=== PATIENT | female | born 1970 | race Caucasian/White ===

== ENCOUNTER → 2016-07-19 | Outpatient (REF) | payer MEDICARE, OTHER ==
[~2016-07-19] MED LIST: /CELE20CA PO; /DULO30CA OR; /ZOLP6ER; AMBI10TA OR; AMBI5TAB OR; BUTR5DIS2 TD; CALCCHW12 OR; CELE40TA; CETI5CHW OR; COLA100C2 OR; CVS20TAB PO; FIBERCHOICE OR; FLECTOR PATCH; FLON0.05; GABA600T3 OR; LYRI75CA PO; MIRALEX; MIRALEX OR; MOTR200T4 OR; OXYC15TA11 PO; PERICOLACE OR; PRAV40TA OR; RYZOLT OR; RYZOLT PO; SAVELLA OR; SOMA350T OR; THERGRAN OR; TRAM50TA2 OR; TYLE500T53 OR; ULTR300T; ULTRTA OR; tylenol OR
[2016-07-19 12:08] LABS: ALBUMIN 3.9 GM/DL (3.2-5.2); ALBUMIN/GLOBULIN RATIO 1.39 (1.00-1.93); ALKALINE PHOSPHATASE 44 U/L (45-117); ALT/SGPT 26 U/L (12-78); ANION GAP 7 MEQ/L (8-16); AST/SGOT 14 U/L (15-37); BILIRUBIN,TOTAL 0.2 MG/DL (0.2-1.0); BLOOD UREA NITROGEN 14 MG/DL (7-18); CALCIUM LEVEL 9.3 MG/DL (8.5-10.1); CARBON DIOXIDE LEVEL 30 MEQ/L (21-32); CHLORIDE LEVEL 106 MEQ/L (98-107); CHOLESTEROL LEVEL 195 MG/DL (<200); CREATININE FOR GFR 0.66 MG/DL (0.55-1.02); FREE T4 0.77 NG/DL (0.76-1.46); GLOMERULAR FILTRATION RATE > 60.0 (>58); GLUCOSE, FASTING 94 MG/DL (70-105); MAGNESIUM LEVEL 2.1 MG/DL (1.8-2.4); POTASSIUM SERUM 3.9 MEQ/L (3.5-5.1); SODIUM LEVEL 143 MEQ/L (136-145); TOTAL PROTEIN 6.7 GM/DL (6.4-8.2); TRIGLYCERIDES LEVEL 124 MG/DL (<150)
== END ==
LOC: M SFHCPLAZ 08:49
PROVIDERS: ATTEND Nurse Practitioner Family
DX: E78.2 Mixed hyperlipidemia (principal); K21.9 Gastro-esophageal reflux disease without esophagitis

== ENCOUNTER → 2016-07-20 | Outpatient (CLI) | payer OTHER, MEDICARE ==
--- NOTE | 2016-08-06 01:16 | ECWPNPC ---
PATIENT NAME: SAFIA GARCIA : 1970 GENDER: FEMALE VISIT DATE: 07/20/2016 DISCHARGE DATE: 07/20/16 1114 VISIT LOCKED DATE TIME: PHYSICIAN: DEVI ADAMS RESOURCE: DEVI ADAMS REASON FOR APPOINTMENT 1. W/C BACK HISTORY OF PRESENT ILLNESS HISTORY OF PRESENT ILLNESS: PAIN THE PATIENT DESCRIBES THE PAIN... THE PATIENT DESCRIBES THE PAIN... THE PATIENT DESCRIBES THE PAIN... HERE FOR F/U OF CHRONIC LBP AND BILAT. LEG PAIN .THIS IS CHRONIC PAIN RELATED TO WORK RELATED INJURY DOI 2001.HX OF 2 LUMBAR SURGERIES 2001 AND 2002.CURRENT MEDICATIONS FOR WORK RELATED INJURY:SOMA 350MG TID WHICH SHE IS USING PRN,TRAMADOL 50MG 2 TAB PRN MDD4,OXYCONTIN 20MG BID,[id number] BID,NEURONTIN 600MG TID AND AMBIEN 10MG PRN .FINDS CURRENT REGIMEN SOMEWHAT EFFECTIVE BUT FEELS TRAMADOL DOES NOT HELP AT ALL. CONSTIPATION HAS BEEN CONTROLLED WITH PRN COLACE 100MG 1-2 TAB AND SENEKOT 1 DAILY.RATING PAIN VAS 6/10.DISCUSSED MEDICATION OPTIONS TO INCLUDE OPIOD ROTATION AND CONSIDERING DCS AGAIN. SHE WAS UNABLE TO GO THROUGH WITH DCS TRIAL 1 YR AGO SHE IS AND WAS UNDER ALOT OF STRESS. FALL RISK SCREENING: SCREENING :NO FALLS IN THE PAST YEAR CURRENT MEDICATIONS TAKING MAGNESIUM OXIDE 500 MG TABLET 1 TABLET WITH MEAL ORALLY DAILY TAKING MIRENA 20 MCG/24HR INTRAUTERINE DEVICE 1 DEVICE WTW INTRAUTERINE PLACED 12/2013, NOTES: WTW TAKING VITAMIN C 500 MG TABLET CHEWABLE 1 TAB ORALLY ONCE A DAY TAKING MULTI-VITAMIN 1 TABLET 1 TAB ORALLY ONCE A DAY TAKING FISH OIL 1000 MG CAPSULE 1 CAP ORALLY TWICE A DAY TAKING VALACYCLOVIR HCL 500 MG TABLET 2 TABLETS ORALLY EVERY 24 HRS NEEDED TAKING SALINE NASAL SPRAY 0.65 % SOLUTION 2 SPRAYS IN EACH NOSTRIL NEEDED NASALLY EVERY 4 HRS NEEDED TAKING OMEPRAZOLE 20 MG CAPSULE DELAYED RELEASE 1 CAPSULE ORALLY TWICE A DAY TAKING VITAMIN D-3 1000 UNIT CAPSULE 2 CAPS WITH FOOD ORALLY ONCE A DAY TAKING CALCIUM 600 + D 600-400 MG-UNIT TABLET 1 TABLET ORALLY ONCE A DAY TAKING DRISDOL 50,000 UNITS TABLET 1 TAB WITH MEAL ORAL EVERY 2 WEEKS TAKING PRAVASTATIN SODIUM 40 MG TABLET 1 TABLET ORALLY ONCE A DAY TAKING AMBIEN 10 MG TABLET 1 TABLET AT BEDTIME NEEDED ORALLY ONCE A DAY MDD1 TAKING GABAPENTIN 600 MG TABLET 1 TABLET ORALLY THREE TIMES A DAY TAKING CYMBALTA 60 MG CAPSULE DELAYED RELEASE PARTICLES 1 CAP PAIN CLINIC ORALLY TWICE A DAY, NOTES: PAIN CLINIC TAKING FLONASE 50 MCG/ACT SUSPENSION 1 PUFF IN EACH NOSTRIL NASALLY ONCE A DAY NEEDED TAKING SOMA 350 MG TABLET 1 TAB ORALLY Q8H TID MDD3, NOTES: PAIN CLINIC TAKING NORCO 7.5-325 MG TABLET 1 ORALLY EVERY 6 HRS PRN PAIN MDD4 TAKING OXYCODONE HCL ER 20 MG TABLET ER 12 HOUR ABUSE-DETERRENT 1 TABLET ORALLY EVERY 12 HRS MDD2 NOT-TAKING CUSTOM DO NOT USE TRAMADOL 50 MG TABLET ONE TAB PAIN CLINIC ORALLY EVERY 4-6 HOURS PRN PAIN, NOTES: PAIN CLINIC NOT-TAKING COLACE 100 MG CAPSULE 2 CAP(S) ORALLY ONCE A DAY NOT-TAKING FIBERCHOICE 2 GM TABLET CHEWABLE 1 TAB(S) ORALLY ONCE A DAY NOT-TAKING ZYRTEC ALLERGY 10 MG TABLET 1 TABLET ORALLY ONCE A DAY NOT-TAKING ZOLPIDEM TARTRATE 10 MG TABLET 1 TABLET AT BEDTIME NEEDED ORALLY DAILY AT BEDTIME NOT-TAKING OXYCODONE HCL ER 20 MG TABLET ER 12 HOUR ABUSE-DETERRENT 1 TABLET ORALLY EVERY 12 HRSMDD2 NOT-TAKING OXYCODONE HCL ER 20 MG TABLET ER 12 HOUR ABUSE-DETERRENT 1 TABLET ORALLY Q12H BID MDD2 NOT-TAKING AMBIEN 10MG TABLET 1/2-1 TAB PAIN CLINIC P.O. AT BED TIME NEEDED, NOTES: PAIN CLINIC NOT-TAKING MOVANTIK 12.5 MG TABLET 1 TABLET IN THE MORNING ORALLY ONCE A DAY NOT-TAKING OXYCONTIN 20 MG TABLET EXTENDED RELEASE 12 HOUR 1 ORALLY 1Q12H BID MDD2, NOTES: PAIN CLINIC NOT-TAKING GABAPENTIN 600 600 MG CAPSULE 1 CAPSULE ORAL Q 8 HRS, NOTES: PAIN CLINIC NOT-TAKING HYDROCHLOROTHIAZIDE 12.5 12.5MG TABLET 1 TAB(S) ORAL HOLD MEDICATION LIST REVIEWED AND RECONCILED WITH THE PATIENT PAST MEDICAL HISTORY DEPRESSION REFLUX SEASONAL AND ENVIRONMENTAL ALLERGIES HYPERLIPIDEMIA REMOTE HX DYSPLASIA CHRONIC BACK AND NECK PROBLEMS EDEMA ALLERGIES FLEXERIL: HIVES: ALLERGY CELEBREX: RASH: ALLERGY LYRICA: RASH,FACE SWELLING: ALLERGY SOCIAL HISTORY GENERAL: TOBACCO USE ARE YOU A:NONSMOKER LEARNING BARRIERS / SPECIAL NEEDS ORIENTED TO PLAN OF CARE: PATIENT, PAIN MANAGEMENT PATIENT, ORIENTED TO PLAN OF CARE: PATIENT, PAIN MANAGEMENT PATIENT. NEW PATIENT PAIN DIARY TODAY'S VISITNOTES FROM 0-10, WHAT LEVEL IS YOUR PAIN TODAY?0 PAIN CLINIC PFS, CLERGY, PUBLIC HEALTH REFERRALS PFS REFERRAL NEEDED?NO CLERGY REFERRAL NEEDED?NO PUBLIC HEALTH REFERRAL NEEDED?NO WAS THE PROVIDER NOTIFIED OF ANY PERTINENT INFO?NO PFS REFERRAL NEEDED?NO CLERGY REFERRAL NEEDED?NO PUBLIC HEALTH REFERRAL NEEDED?NO WAS THE PROVIDER NOTIFIED OF ANY PERTINENT INFO?NO REVIEW OF SYSTEMS CONSTITUTIONAL: ANY CHANGE IN YOUR MEDICAL CONDITION? NO . CHILLS NO . FEVER NO . INFECTION: DO YOU HAVE NEW INFECTIONS? NO . DO YOU HAVE HISTORY OF MRSA? NO . MUSCULOSKELETAL: ANY NEW PATTERNS OF PAIN OR NUMBNESS? NO . GASTROENTEROLOGY: ANY NEW CHANGE IN BOWEL CONTROL? NO . GENITOURINARY: ANY NEW CHANGE IN BLADDER CONTROL? NO . IS THERE A CHANCE YOU COULD BE ? NO . HEMATOLOGY/LYMPH: DO YOU TAKE ANY BLOOD THINNERS? (FOR EXAMPLE- COUMADIN, PLAVIX, AGGRENOX, PLATEL, PRADAXA, OR XARELTO) NO . WHEN WAS YOUR LAST DOSE? DATE: TIME: . NEUROLOGY: HAVE YOU FALLEN IN THE PAST 6 MONTHS? NO . ANY NEW EXTREMITY NUMBNESS OR WEAKNESS? NO . CARDIOLOGY: DO YOU HAVE A PACEMAKER OR DEFIBRILLATOR? NO . RESPIRATORY: HAVE YOU BEEN SICK IN THE PAST WEEK? NO . FEVER NO . FLU LIKE SYMPTOMS? NO . COUGH NO . INTEGUMENTARY: DO YOU HAVE ANY RASHES OR OPEN SORES? NO . ALLERGIC/IMMUNO: ARE YOU ALLERGIC TO SHELLFISH OR IV DYE? NO . ANY NEW ALLERGIES? NO . PSYCHIATRIC: DO YOU HAVE THOUGHTS OF HURTING YOURSELF OR SOMEONE ELSE? NO . ARE YOU ABUSED, NEGLECTED, OR IN AN UNSAFE ENVIRONMENT? NO . ENDOCRINOLOGY: ARE YOU DIABETIC? NO . OTHER: DO YOU NEED ANY PRESCRIPTIONS? YES . IF YES, PLEASE LIST: SOMA . ANY NEW PROBLEMS WITH YOUR MEDICATIONS? NO . WHEN DID YOU LAST EAT? ____ . WHEN DID YOU LAST DRINK? ____ . WHAT DID YOU LAST DRINK? ____ . NAME OF PERSON DRIVING YOU HOME? ____ . DO YOU HAVE ANY OTHER QUESTIONS OR CONCERNS NO . REVIEWED BY: PROVIDER: DEVI REYNOLDS . VITAL SIGNS WT 190 LBS, HT 64.5 IN, BMI 32.11 INDEX, BP 127/69 MM HG, HR 75 /MIN, RR 16 /MIN, TEMP 97.7 F, OXYGEN SAT % 97, NA INITIALS TL 1044, REVIEWED BY: AM. EXAMINATION GENERAL EXAMINATION: LUNGS:LUNG SOUNDS ARE CLEAR. HEART:HEART RATE REGULAR. MUSCULOSKELETAL:*, MUSCLE STRENGTH TESTING 5/5 BILATERAL, PALPATION: POSITIVE FOR PAIN OVER L/S SPINE. POSITIVE FOR PAIN OVER L/S PARSPINALS. ASSESSMENTS POST LAMINECTOMY SYNDROME - M96.1 (PRIMARY) CHRONIC PRESCRIPTION OPIATE USE - Z79.891 TREATMENT POST LAMINECTOMY SYNDROME CONTINUE AMBIEN TABLET, 10 MG, 1 TABLET AT BEDTIME NEEDED, ORALLY, ONCE A DAY MDD1, 30 DAY(S), 15, REFILLS 1 CONTINUE GABAPENTIN TABLET, 600 MG, 1 TABLET, ORALLY, THREE TIMES A DAY, 30 DAY(S), 90 TABLET, REFILLS 5 CONTINUE CYMBALTA CAPSULE DELAYED RELEASE PARTICLES, 60 MG, 1 CAP PAIN CLINIC, ORALLY, TWICE A DAY, 30 DAY(S), 60 CAPSULE, REFILLS 5, NOTES: PAIN CLINIC REFILL SOMA TABLET, 350 MG, 1 TAB, ORALLY, Q8H TID MDD3, 30 DAY(S), 30, REFILLS 0, NOTES: PAIN CLINIC REFILL NORCO TABLET, 7.5-325 MG, 1, ORALLY, EVERY 6 HRS PRN PAIN MDD4, 30 DAY(S), 120, REFILLS 0 REFILL OXYCODONE HCL ER TABLET ER 12 HOUR ABUSE-DETERRENT, 20 MG, 1 TABLET, ORALLY, EVERY 12 HRS MDD2, 30 DAY(S), 60, REFILLS 0 NOTES: ISTOP REGISTRY REVIEWED AND DEMNOSTRATES COMPLLIANCE. BRINGS IN MEDICATIONS WHICH IS APPROPRIATE FOR WHAT WAS DISPENSED. RECENT URINE TOXICOLOGY REVIEWED. NO UNAUTHORIZED MEDICATIONS. NO ILLICIT SUBSTANCES AND PRESCRIBED MEDICATIONS WERE PRESENT. , RISKS AND BENEFITS OF NARCOTIC/OPIOD MEDICATIONS WERE REVIEWED WITH PATIENT - THIS INCLUDES BUT IS NOT LIMITED TO RISK OF DEPENDANCE/DEVELOPMENT OF ADDICTION, MOOD DISTURBANCE AND DEPRESSION, OSTEOPOROSIS, HORMONAL AND LABIDAL CHANGES, RESPIRATORY DEPRESSION AND . PATIENT IS ADVISED NOT TO DRIVE WHILE ON THESE MEDICATIONS. PROCEDURES PN WORKMANS' COMP OPINION IN YOUR OPINION, WAS THE INCIDENT THAT THE PATIENT DESCRIBED THE COMPETENT MEDICAL CAUSE OF THIS INJURY/ILLNESS? YES ARE THE PATIENT'S COMPLAINTS CONSISTENT WITH HIS/HER HISTORY OF THE INJURY/ILLNESS? YES IS THE PATIENT'S HISTORY OF THE INJURY/ILLNESS CONSISTENT WITH YOUR OBJECTIVE FINDING? YES WHAT IS THE PERCENTAGE OF TEMPORARY IMPAIRMENT? MODERATE TO MARKED = 66.7% IS THE PATIENT WORKING? NO DOCTOR ON SITE: LAVERN LACY MD FOLLOW UP [address] WHALEY ELECTRONICALLY SIGNED BY GAIL ADAMS ON 08/05/2016 AT 04:42 PM EST DISCLAIMER : THIS IS A VISIT SUMMARY EXTRACTED FROM THE [employer] CHART. IT IS NOT A COPY OF THE [employer] PROGRESS NOTE. SANJIV
== END ==
LOC: M PAIN 10:20
PROVIDERS: ATTEND Nurse Practitioner Family
DX: Z09 Encounter for follow-up examination after completed treatment for conditions other than malignant neoplasm (principal); G89.29 Other chronic pain; M96.1 Postlaminectomy syndrome, not elsewhere classified; K21.9 Gastro-esophageal reflux disease without esophagitis; J30.1 Allergic rhinitis due to pollen; J30.2 Other seasonal allergic rhinitis; E78.5 Hyperlipidemia, unspecified; F32.9 Major depressive disorder, single episode, unspecified; Z88.8 Allergy status to other drugs, medicaments and biological substances; Z79.891 Long term (current) use of opiate analgesic; Z79.899 Other long term (current) drug therapy

== ENCOUNTER → 2016-08-02 | Outpatient (REF) | payer MEDICARE ==
[2016-08-02 17:01] LABS: VITAMIN B12 LEVEL 630 PG/ML
[2016-08-02 17:02] LABS: FOLATE > 24.0 NG/ML
[2016-08-02 18:19] LABS: MEAN CORPUSCULAR HGB CONC 32.2 g/dl (32.0-36.5); RED CELL DISTRIBUTION WIDTH 13.2 % (11.5-14.5); WHITE BLOOD COUNT 7.2 K/mm3 (4.0-10.0)
== END ==
LOC: M SFHCPLAZ 14:41
PROVIDERS: ATTEND Social Worker Clinical
DX: R53.83 Other fatigue (principal); E55.9 Vitamin D deficiency, unspecified

== ENCOUNTER → 2016-09-07 | Outpatient (REF) | payer MEDICARE | LOC: M SFHCWAGY 14:27 | PROVIDERS: ATTEND Nurse Practitioner Women's Health | DX: Z12.31 Encounter for screening mammogram for malignant neoplasm of breast (principal); Z12.4 Encounter for screening for malignant neoplasm of cervix; R87.622 Low grade squamous intraepithelial lesion on cytologic smear of vagina (LGSIL) | CPT/HCPCS: G0123; G0202; G0463 ==

== ENCOUNTER → 2016-09-07 | Outpatient (CLI) | payer MEDICARE ==
--- NOTE | 2016-09-07 15:14 | REPMRS ---
Patient History The patient states she had a clinical breast exam in 08/2016. Family history of breast cancer in maternal aunt under age 50 and colorectal cancer in paternal grandmother. Reductions of both breasts, 2004. Taking hormonal contraceptives for 9 years. Digital Woman Screen Mammo: September 07, 2016 - Exam #: [id number] Bilateral CC and MLO view(s) were taken. Technologist: Marissa Hilliard, Technologist Prior study comparison: January 21, 2014, digital woman screen mammo performed at [facility]. March 02, 2011, bilateral bilat screen digital mammo performed at [facility]. FINDINGS: There are scattered fibroglandular densities. There has been no change in the appearance of the mammogram from the prior studies. There is a mild amount of residual fibroglandular tissue which is fairly symmetric. There is no interval development of dominant mass, architectural distortion, or clustered microcalcification suggestive of malignancy. ASSESSMENT: BI-RADS/ACR category 1 mammogram. Negative. Recommendation Routine screening mammogram in 1 year (for women over age 40). This mammogram was interpreted with the aid of an FDA-approved computer-aided dectection system. Electronically Signed By: Antonino Ingram MD 09/07/16 0449
== END ==
LOC: M WHC 14:06
PROVIDERS: ATTEND Nurse Practitioner Women's Health
DX: Z12.31 Encounter for screening mammogram for malignant neoplasm of breast (principal); Z98.890 Other specified postprocedural states

== ENCOUNTER → 2016-10-03 | Outpatient (REF) | payer MEDICARE | LOC: M SFHCWAGY 15:21 | PROVIDERS: ATTEND Nurse Practitioner Women's Health | DX: N87.0 Mild cervical dysplasia (principal) ==

== ENCOUNTER → 2016-10-04 | Outpatient (CLI) | payer MEDICARE ==
--- NOTE | 2016-10-09 23:57 | ECWPNPC ---
PATIENT NAME: SAFIA GARCIA : 1970 GENDER: FEMALE VISIT DATE: 10/04/2016 DISCHARGE DATE: 10/04/16 1344 VISIT LOCKED DATE TIME: PHYSICIAN: LAVERN WHALEY RESOURCE: LAVERN WHALEY REASON FOR APPOINTMENT 1. W/C BACK HISTORY OF PRESENT ILLNESS HISTORY OF PRESENT ILLNESS: PAIN THE PATIENT DESCRIBES THE PAIN... 46 YEAR OLD FEMALE PATIENT WITH HISTORY OF CHRONIC BACK PAIN. PATIENT DESCRIBES THE PAIN SHARP, STABBING, TENDER, SHOOTING, AND HAVING IT ALL THE TIME WITH A PAIN SCORE OF 5-6/10 ON TODAY'S VISIT. 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 PATIENT HAS HAD TWO BACK SURGERIES THE LAST ONE WAS IN 2002. PATIENT HAS TRIED PT IN THE PAST WITHOUT ANY SUCCESS IN PAIN RELIEF. PATIENT REPORTS THAT SHE LAST WORKED IN 2001. PATIENT REPORTS THAT SHE HAS DIFFICULTIES FALLING ASLEEP AND STAYING AT SLEEP AT NIGHT. PATIENT REPORTS OF RADIATING PAIN DOWN BOTH LEGS FROM HER BACK, AND THE PAIN IN THE RIGHT LEG HURTS THE MOST TODAY. PATIENT DENIES UNEXPLAINABLE WEIGHT LOSS, FEVER, CHILLS, NEW CHANGES ON HER URINARY OR BOWEL CONTROL. FALL RISK SCREENING: SCREENING :NO FALLS IN THE PAST YEAR CURRENT MEDICATIONS TAKING CYMBALTA 60 MG CAPSULE DELAYED RELEASE PARTICLES 1 CAP PAIN CLINIC ORALLY TWICE A DAY TAKING MAGNESIUM OXIDE 500 MG TABLET 1 TABLET WITH MEAL ORALLY DAILY TAKING VITAMIN C 500 MG TABLET CHEWABLE 1 TAB ORALLY ONCE A DAY TAKING MULTI-VITAMIN 1 TABLET 1 TAB ORALLY ONCE A DAY TAKING FISH OIL 1000 MG CAPSULE 1 CAP ORALLY TWICE A DAY TAKING CALCIUM 600 + D 600-400 MG-UNIT TABLET 1 TABLET ORALLY ONCE A DAY TAKING SOMA 350 MG TABLET 1 TAB ORALLY Q8H TID MDD3, NOTES: PAIN CLINIC TAKING LANSOPRAZOLE 30 MG CAPSULE DELAYED RELEASE 1 CAPSULE ORALLY ONCE A DAY TAKING PRAVASTATIN SODIUM 40 MG TABLET 1 TABLET ORALLY ONCE A DAY TAKING ZYRTEC ALLERGY 10 MG TABLET 1 TABLET ORALLY ONCE A DAY TAKING VITAMIN D-3 1000 UNIT CAPSULE 4 CAPS WITH FOOD ORALLY ONCE A DAY TAKING SALINE NASAL SPRAY 0.65 % SOLUTION 2 SPRAYS IN EACH NOSTRIL NEEDED NASALLY EVERY 4 HRS NEEDED TAKING OXYCODONE HCL ER 20 MG TABLET ER 12 HOUR ABUSE-DETERRENT 1 TABLET ORALLY EVERY 12 HRS MDD2 TAKING NORCO 7.5-325 MG TABLET 1 ORALLY EVERY 6 HRS PRN PAIN MDD4 TAKING MIRENA 20 MCG/24HR INTRAUTERINE DEVICE 1 DEVICE WTW INTRAUTERINE PLACED 12/2013, NOTES: WTW TAKING NYSTATIN [id number] UNIT/GM CREAM 1 APPLICATION TO AFFECTED AREA EXTERNALLY TO GENITALIA TWICE A DAY TAKING GABAPENTIN 600 MG TABLET 1 TABLET ORALLY THREE TIMES A DAY TAKING FLONASE 50 MCG/ACT SUSPENSION 1 PUFF IN EACH NOSTRIL NASALLY ONCE A DAY NEEDED TAKING VALACYCLOVIR HCL 1 GM TABLET 1 TAB ORALLY EVERY 24 HRS NEEDED NOT-TAKING COLACE 100 MG CAPSULE 2 CAP(S) ORALLY ONCE A DAY NOT-TAKING FIBERCHOICE 2 GM TABLET CHEWABLE 1 TAB(S) ORALLY ONCE A DAY DISCONTINUED TRAZODONE HCL 50 MG TABLET 1 TABLET AT BEDTIME NEEDED ORALLY ONCE A DAY MEDICATION LIST REVIEWED AND RECONCILED WITH THE PATIENT PAST MEDICAL HISTORY DEPRESSION REFLUX SEASONAL AND ENVIRONMENTAL ALLERGIES HYPERLIPIDEMIA REMOTE HX DYSPLASIA CHRONIC BACK AND NECK PROBLEMS EDEMA ALLERGIES FLEXERIL: HIVES: ALLERGY CELEBREX: RASH: ALLERGY LYRICA: RASH,FACE SWELLING: ALLERGY SURGICAL HISTORY BREAST REDUCTION APPENDECTOMY D&C ROTATOR CUFF TEAR REPAIR-RIGHT BACK SURGERY-FUSION L4-L5 X 2 LASER SURGERY FOR DYSPLASIA SINUS SURGERY X2 COLPOSCOPY WITH ELLE 10/03/2016 FAMILY HISTORY FATHER: 58 YRS, OF [place], DIAGNOSED WITH HEART DISEASE MOTHER: ALIVE 72 YRS, HYPERLIPIDEMIA, SMOKER SIBLINGS: BROTHER - [place] AT 48, SIS - HYPERLIPIDEMIA, DIAGNOSED WITH HEART DISEASE SON(S): ADHD, OCD,ANXIETY, ASPERGERS 1 BROTHER(S) , 2 SISTER(S) . 2 SON(S) . SOCIAL HISTORY GENERAL: PAIN CLINIC PFS, CLERGY, PUBLIC HEALTH REFERRALS CLERGY REFERRAL NEEDED?NO WAS THE PROVIDER NOTIFIED OF ANY PERTINENT INFO?NO PFS REFERRAL NEEDED?NO PUBLIC HEALTH REFERRAL NEEDED?NO PATIENT: ____. HOSPITALIZATION/MAJOR DIAGNOSTIC PROCEDURE RELATED TO SURGERIES REVIEW OF SYSTEMS CONSTITUTIONAL: ANY CHANGE IN YOUR MEDICAL CONDITION? NO . CHILLS NO . FEVER NO . INFECTION: DO YOU HAVE NEW INFECTIONS? NO . DO YOU HAVE HISTORY OF MRSA? NO . MUSCULOSKELETAL: ANY NEW PATTERNS OF PAIN OR NUMBNESS? NO . GASTROENTEROLOGY: ANY NEW CHANGE IN BOWEL CONTROL? NO . GENITOURINARY: ANY NEW CHANGE IN BLADDER CONTROL? NO . IS THERE A CHANCE YOU COULD BE ? NO . HEMATOLOGY/LYMPH: DO YOU TAKE ANY BLOOD THINNERS? (FOR EXAMPLE- COUMADIN, PLAVIX, AGGRENOX, PLATEL, PRADAXA, OR XARELTO) NO . WHEN WAS YOUR LAST DOSE? DATE: TIME: . NEUROLOGY: HAVE YOU FALLEN IN THE PAST 6 MONTHS? NO . ANY NEW EXTREMITY NUMBNESS OR WEAKNESS? NO . CARDIOLOGY: DO YOU HAVE A PACEMAKER OR DEFIBRILLATOR? NO . RESPIRATORY: HAVE YOU BEEN SICK IN THE PAST WEEK? NO . FEVER NO . FLU LIKE SYMPTOMS? NO . COUGH NO . INTEGUMENTARY: DO YOU HAVE ANY RASHES OR OPEN SORES? NO . ALLERGIC/IMMUNO: ARE YOU ALLERGIC TO SHELLFISH OR IV DYE? NO . ANY NEW ALLERGIES? NO . PSYCHIATRIC: DO YOU HAVE THOUGHTS OF HURTING YOURSELF OR SOMEONE ELSE? NO . ARE YOU ABUSED, NEGLECTED, OR IN AN UNSAFE ENVIRONMENT? NO . ENDOCRINOLOGY: ARE YOU DIABETIC? NO . OTHER: DO YOU NEED ANY PRESCRIPTIONS? YES . IF YES, PLEASE LIST: CYMBALTA, SOMA, VICODIN . ANY NEW PROBLEMS WITH YOUR MEDICATIONS? NO . WHEN DID YOU LAST EAT? ____ . WHEN DID YOU LAST DRINK? ____ . WHAT DID YOU LAST DRINK? ____ . NAME OF PERSON DRIVING YOU HOME? ____ . DO YOU HAVE ANY OTHER QUESTIONS OR CONCERNS NO . REVIEWED BY: PROVIDER: LAVERN WHALEY MD . VITAL SIGNS WT 182.0 LBS, HT 64.5 IN, BMI 30.75 INDEX, BP 120/85 MM HG, HR 70 /MIN, RR 16 /MIN, TEMP 98.5 F, OXYGEN SAT % 96%, NA INITIALS TL 1310, REVIEWED BY: CM. EXAMINATION : PATIENT IS ALERT O X 3 AND COOPERATIVE. PATIENT IS ABLE TO FLEX HER BACK TO 40 DEGREES AND IS UNABLE TO EXTEND HER BACK. PATIENT HAS TENDERNESS IN THE LUMBAR PARASPINAL MUSCLE GROUP WITH BANDS OF TISSUES. BOTH OF THE PATIENT'S RIGHT AND LEFT LEG IS RELATIVELY WEAK AT FLEXION AND EXTENSION. STRAIGHT LEG RASING IS POSITIVE FOR PAIN AT 20 DEGREES ON THE RIGHT LEG AND 20 DEGREES ON THE LEFT LEG. MRI OF THE LUMBAR SPINE DONE ON 03/19/2014 SHOWS THERE IS DISC BULGES AT MULTIPLE LEVELS, POST LAMINECTOMY CHANGES, AND SPONDYLOSIS. 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 GARCIA'S PAIN MANAGEMENT CASE. I DISCUSSED WITH THE PATIENT THAT SHE TAKES A LOT OF SOMA AND SHE NEEDS TO DECREASE HER SOMA INTAKE. PATIENT STATES THAT THERE ARE SOME DAYS THAT SHE DOES NOT USE THREE TABLETS A DAY AND IF SHE DOES NOT TAKE SOMA IT WILL CAUSE SEVERE SPASTICITY. PATIENT IS TAKING CYMBALTA AND GABAPENTIN FOR NEUROPATHIC PAIN AND OXYCODONE AND NORCO FOR SOMATIC PAIN. REVIEWED WITH PATIENT THE POTENTIAL RISK OF INCREASED SEDATION, RESPIRATORY SUPPRESSION AND WITH THE COMBINATION OF BENZODIAZEPINE, ALCOHOL, AND OPIOID MEDICATIONS. PATIENT STATES SHE UNDERSTANDS THIS RISK AND WISHES TO CONTINUE WITH THERAPY. MEDICATION AT THIS TIME HELP KEEP THE PATIENT MOBILE AND FUNCTIONAL. PATIENT DID NOT BRING HER MEDICATIONS BOTTLES ON TODAY'S VISIT. I ADVISED THE PATIENT THAT SHE NEEDS TO BRING HER MEDICATION BOTTLES FOR EVERY VISIT. PATIENT WILL FOLLOW UP WITH ME IN 4 WEEKS. INSTRUCTIONS WERE GIVEN, QUESTIONS WERE ANSWERED, PATIENT REPORTS UNDERSTANDING AND AGREES WITH THE PLAN. I, SANJIV STEVEN, DOCUMENTED THE ABOVE INFORMATION ACTING A SCRIBE FOR DR. WHALEY. I HAVE REVIEWED THE ABOVE DOCUMENT, WRITTEN BY SANJIV COLBERTIBLa Nena AND I VERIFY THAT IT IS ACCURATE. OTHERS REFILL CYMBALTA CAPSULE DELAYED RELEASE PARTICLES, 60 MG, 1 CAP PAIN CLINIC, ORALLY, TWICE A DAY, 30 DAY(S), 60 CAPSULE, REFILLS 2 PROCEDURES PN WORKMANS' COMP OPINION IN YOUR OPINION, WAS THE INCIDENT THAT THE PATIENT DESCRIBED THE COMPETENT MEDICAL CAUSE OF THIS INJURY/ILLNESS? YES ARE THE PATIENT'S COMPLAINTS CONSISTENT WITH HIS/HER HISTORY OF THE INJURY/ILLNESS? YES IS THE PATIENT'S HISTORY OF THE INJURY/ILLNESS CONSISTENT WITH YOUR OBJECTIVE FINDING? YES WHAT IS THE PERCENTAGE OF TEMPORARY IMPAIRMENT? MODERATE TO MARKED = 66.7% IS THE PATIENT WORKING? NO DOCTOR ON SITE: LAVERN LACY MD PROCEDURE CODES FA211 ESTABILISHED PATIENT [facility] CHARGE G8730 PAIN ASSESS POS TOOL F/U PLAN DOC [id number] DOC MEDS VERIFIED W/PT OR RE DISPOSITION & COMMUNICATION FOLLOW UP 4 WEEKS ELECTRONICALLY SIGNED BY LAVERN WHALEY MD ON 10/09/2016 AT 09:29 PM EDT DISCLAIMER : THIS IS A VISIT SUMMARY EXTRACTED FROM THE [employer] CHART. IT IS NOT A COPY OF THE [employer] PROGRESS NOTE. SANJIV
== END | disposition home or self-care (01) ==
LOC: M PAIN 12:40
PROVIDERS: ATTEND Anesthesiology
DX: Z09 Encounter for follow-up examination after completed treatment for conditions other than malignant neoplasm (principal); G89.29 Other chronic pain; M96.1 Postlaminectomy syndrome, not elsewhere classified; M51.17 Intervertebral disc disorders with radiculopathy, lumbosacral region; M51.16 Intervertebral disc disorders with radiculopathy, lumbar region; F33.9 Major depressive disorder, recurrent, unspecified; K21.9 Gastro-esophageal reflux disease without esophagitis; E78.5 Hyperlipidemia, unspecified; Z79.899 Other long term (current) drug therapy; Z79.891 Long term (current) use of opiate analgesic; Z97.5 Presence of (intrauterine) contraceptive device; Z88.8 Allergy status to other drugs, medicaments and biological substances

== ENCOUNTER → 2016-11-02 | Outpatient (CLI) | payer OTHER, MEDICARE ==
--- NOTE | 2016-11-13 23:58 | ECWPNPC ---
PATIENT NAME: SAFIA GARCIA : 1970 GENDER: FEMALE VISIT DATE: 11/02/2016 DISCHARGE DATE: 11/02/16 1648 VISIT LOCKED DATE TIME: PHYSICIAN: LAVERN WHALEY RESOURCE: LAVERN WHALEY REASON FOR APPOINTMENT 1. W/C BACK HISTORY OF PRESENT ILLNESS HISTORY OF PRESENT ILLNESS: PAIN THE PATIENT DESCRIBES THE PAIN... 46 YEAR OLD FEMALE PATIENT WITH HISTORY OF CHRONIC BACK PAIN. PATIENT DESCRIBES THE PAIN SHARP, STABBING, TENDER, SHOOTING, AND HAVING IT ALL THE TIME WITH A PAIN SCORE OF 7-8/10 ON TODAY'S VISIT. 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 PATIENT HAS HAD TWO BACK SURGERIES THE LAST ONE WAS IN 2002. PATIENT HAS TRIED PT IN THE PAST WITHOUT ANY SUCCESS IN PAIN RELIEF. PATIENT REPORTS THAT SHE LAST WORKED IN 2001. PATIENT REPORTS THAT SHE HAS DIFFICULTIES FALLING ASLEEP AND STAYING AT SLEEP AT NIGHT. PATIENT REPORTS OF RADIATING PAIN DOWN BOTH LEGS FROM HER BACK, AND THE PAIN IN THE RIGHT LEG HURTS THE MOST TODAY. MRS. GARCIA HAD TRIALED A DCS AND STATED IT WORKED VERY WELL BUT DID NOT WANT TO MOVE FORWARD WITH AN INVASIVE PROCEDURE AT THAT TIME. PATIENT DENIES UNEXPLAINABLE WEIGHT LOSS, FEVER, CHILLS, NEW CHANGES ON HER URINARY OR BOWEL CONTROL. FALL RISK SCREENING: SCREENING :NO FALLS IN THE PAST YEAR CURRENT MEDICATIONS TAKING MAGNESIUM OXIDE 500 MG TABLET 1 TABLET WITH MEAL ORALLY DAILY TAKING VITAMIN C 500 MG TABLET CHEWABLE 1 TAB ORALLY ONCE A DAY TAKING MULTI-VITAMIN 1 TABLET 1 TAB ORALLY ONCE A DAY TAKING FISH OIL 1000 MG CAPSULE 1 CAP ORALLY TWICE A DAY TAKING CALCIUM 600 + D 600-400 MG-UNIT TABLET 1 TABLET ORALLY ONCE A DAY TAKING LANSOPRAZOLE 30 MG CAPSULE DELAYED RELEASE 1 CAPSULE ORALLY ONCE A DAY TAKING PRAVASTATIN SODIUM 40 MG TABLET 1 TABLET ORALLY ONCE A DAY TAKING ZYRTEC ALLERGY 10 MG TABLET 1 TABLET ORALLY ONCE A DAY TAKING VITAMIN D-3 1000 UNIT CAPSULE 4 CAPS WITH FOOD ORALLY ONCE A DAY TAKING SALINE NASAL SPRAY 0.65 % SOLUTION 2 SPRAYS IN EACH NOSTRIL NEEDED NASALLY EVERY 4 HRS NEEDED TAKING MIRENA 20 MCG/24HR INTRAUTERINE DEVICE 1 DEVICE WTW INTRAUTERINE PLACED 12/2013, NOTES: WTW TAKING NYSTATIN 159001 UNIT/GM CREAM 1 APPLICATION TO AFFECTED AREA EXTERNALLY TO GENITALIA TWICE A DAY TAKING FLONASE 50 MCG/ACT SUSPENSION 1 PUFF IN EACH NOSTRIL NASALLY ONCE A DAY NEEDED TAKING VALACYCLOVIR HCL 1 GM TABLET 1 TAB ORALLY EVERY 24 HRS NEEDED TAKING CYMBALTA 60 MG CAPSULE DELAYED RELEASE PARTICLES 1 CAP PAIN CLINIC ORALLY TWICE A DAY TAKING SOMA 350 MG TABLET 1 TAB ORALLY Q8H TID MDD3, NOTES: PAIN CLINIC TAKING OXYCODONE HCL ER 20 MG TABLET ER 12 HOUR ABUSE-DETERRENT 1 TABLET ORALLY EVERY 12 HRS MDD2 TAKING NORCO 7.5-325 MG TABLET 1 ORALLY EVERY 6 HRS PRN PAIN MDD4 TAKING GABAPENTIN 600 MG TABLET 1 TABLET ORALLY THREE TIMES A DAY TAKING FLUTICASONE PROPIONATE 0.05 % CREAM 1 APPLICATION TO AFFECTED AREA EXTERNALLY TO GENITALIA ONCE A DAY TAKING VALERIAN 250 MG CAPSULE 1-2 CAPSULE BEFORE BEDTIME NEEDED ORALLY ONCE A DAY TAKING MELATONIN 300 MCG TABLET 1 TABLET AT BEDTIME NEEDED WITH FOOD ORALLY ONCE A DAY NOT-TAKING COLACE 100 MG CAPSULE 2 CAP(S) ORALLY ONCE A DAY NOT-TAKING FIBERCHOICE 2 GM TABLET CHEWABLE 1 TAB(S) ORALLY ONCE A DAY MEDICATION LIST REVIEWED AND RECONCILED WITH THE PATIENT PAST MEDICAL HISTORY DEPRESSION REFLUX SEASONAL AND ENVIRONMENTAL ALLERGIES HYPERLIPIDEMIA REMOTE HX DYSPLASIA CHRONIC BACK AND NECK PROBLEMS EDEMA ALLERGIES FLEXERIL: HIVES: ALLERGY CELEBREX: RASH: ALLERGY LYRICA: RASH,FACE SWELLING: ALLERGY SURGICAL HISTORY BREAST REDUCTION APPENDECTOMY D&C ROTATOR CUFF TEAR REPAIR-RIGHT BACK SURGERY-FUSION L4-L5 X 2 LASER SURGERY FOR DYSPLASIA SINUS SURGERY X2 COLPOSCOPY WITH ELLE 10/03/2016 FAMILY HISTORY FATHER: 58 YRS, OF [place], DIAGNOSED WITH HEART DISEASE MOTHER: ALIVE 72 YRS, HYPERLIPIDEMIA, SMOKER SIBLINGS: BROTHER - [place] AT 48, SIS - HYPERLIPIDEMIA, DIAGNOSED WITH HEART DISEASE SON(S): ADHD, OCD,ANXIETY, ASPERGERS 1 BROTHER(S) , 2 SISTER(S) . 2 SON(S) . SOCIAL HISTORY GENERAL: PAIN CLINIC PFS, CLERGY, PUBLIC HEALTH REFERRALS CLERGY REFERRAL NEEDED?NO WAS THE PROVIDER NOTIFIED OF ANY PERTINENT INFO?NO PFS REFERRAL NEEDED?NO PUBLIC HEALTH REFERRAL NEEDED?NO PATIENT: ____. HOSPITALIZATION/MAJOR DIAGNOSTIC PROCEDURE RELATED TO SURGERIES REVIEW OF SYSTEMS CONSTITUTIONAL: ANY CHANGE IN YOUR MEDICAL CONDITION? NO . CHILLS NO . FEVER NO . INFECTION: DO YOU HAVE NEW INFECTIONS? NO . DO YOU HAVE HISTORY OF MRSA? NO . MUSCULOSKELETAL: ANY NEW PATTERNS OF PAIN OR NUMBNESS? NO . GASTROENTEROLOGY: ANY NEW CHANGE IN BOWEL CONTROL? NO . GENITOURINARY: ANY NEW CHANGE IN BLADDER CONTROL? YES, INCONTINENCE IS GETTING MORE FREQUENT . IS THERE A CHANCE YOU COULD BE ? NO . HEMATOLOGY/LYMPH: DO YOU TAKE ANY BLOOD THINNERS? (FOR EXAMPLE- COUMADIN, PLAVIX, AGGRENOX, PLATEL, PRADAXA, OR XARELTO) NO . WHEN WAS YOUR LAST DOSE? DATE: TIME: . NEUROLOGY: HAVE YOU FALLEN IN THE PAST 6 MONTHS? NO . ANY NEW EXTREMITY NUMBNESS OR WEAKNESS? NO . CARDIOLOGY: DO YOU HAVE A PACEMAKER OR DEFIBRILLATOR? NO . RESPIRATORY: HAVE YOU BEEN SICK IN THE PAST WEEK? NO . FEVER NO . FLU LIKE SYMPTOMS? NO . COUGH NO . INTEGUMENTARY: DO YOU HAVE ANY RASHES OR OPEN SORES? NO . ALLERGIC/IMMUNO: ARE YOU ALLERGIC TO SHELLFISH OR IV DYE? NO . ANY NEW ALLERGIES? NO . PSYCHIATRIC: DO YOU HAVE THOUGHTS OF HURTING YOURSELF OR SOMEONE ELSE? NO . ARE YOU ABUSED, NEGLECTED, OR IN AN UNSAFE ENVIRONMENT? NO . ENDOCRINOLOGY: ARE YOU DIABETIC? NO . OTHER: DO YOU NEED ANY PRESCRIPTIONS? YES . IF YES, PLEASE LIST: HYDROCODONE,SOMA, OXYCODONE . ANY NEW PROBLEMS WITH YOUR MEDICATIONS? NO . WHEN DID YOU LAST EAT? ____ . WHEN DID YOU LAST DRINK? ____ . WHAT DID YOU LAST DRINK? ____ . NAME OF PERSON DRIVING YOU HOME? ____ . DO YOU HAVE ANY OTHER QUESTIONS OR CONCERNS NO . REVIEWED BY: PROVIDER: LAVERN WHALEY MD . VITAL SIGNS WT 178.4 LBS, HT 64.5 IN, BMI 30.15 INDEX, BP 124/82 MM HG, HR 83 /MIN, RR 16 /MIN, TEMP 98.7 F, OXYGEN SAT % 97%, NA INITIALS SC 16:00, REVIEWED BY: AD. EXAMINATION : PATIENT IS ALERT O X 3 AND COOPERATIVE. PATIENT IS ABLE TO FLEX HER BACK TO 40 DEGREES AND IS UNABLE TO EXTEND HER BACK. PATIENT HAS TENDERNESS IN THE LUMBAR PARASPINAL MUSCLE GROUP WITH BANDS OF TISSUES. BOTH OF THE PATIENT'S RIGHT AND LEFT LEG IS RELATIVELY WEAK AT FLEXION AND EXTENSION. STRAIGHT LEG RASING IS POSITIVE FOR PAIN AT 20 DEGREES ON THE RIGHT LEG AND 20 DEGREES ON THE LEFT LEG. MRI OF THE LUMBAR SPINE DONE ON 03/19/2014 SHOWS THERE IS DISC BULGES AT MULTIPLE LEVELS, POST LAMINECTOMY CHANGES, AND SPONDYLOSIS. ASSESSMENTS POST LAMINECTOMY SYNDROME - M96.1 (PRIMARY) INTERVERTEBRAL DISC DISORDERS WITH RADICULOPATHY, LUMBAR REGION - M51.16 INTERVERTEBRAL DISC DISORDERS WITH RADICULOPATHY, LUMBOSACRAL REGION - M51.17 TREATMENT POST LAMINECTOMY SYNDROME REFILL SOMA TABLET, 350 MG, 1 TAB, ORALLY, Q8H TID MDD3, 30 DAY(S), 80, REFILLS 0, NOTES: PAIN CLINIC REFILL OXYCODONE HCL ER TABLET ER 12 HOUR ABUSE-DETERRENT, 20 MG, 1 TABLET, ORALLY, EVERY 12 HRS MDD2, 30 DAY(S), 60, REFILLS 0 REFILL NORCO TABLET, 7.5-325 MG, 1, ORALLY, EVERY 6 HRS PRN PAIN MDD4, 30 DAY(S), 110, REFILLS 0 REFILL GABAPENTIN TABLET, 600 MG, 1 TABLET, ORALLY, THREE TIMES A DAY, 30 DAY(S), 90 TABLET, REFILLS 2 REFILL COLACE CAPSULE, 100 MG, 2 CAP(S), ORALLY, ONCE A DAY NEEDED FOR CONSTIPATION, 30 DAY(S), 50, REFILLS 2 NOTES: WE DISCUSSED SEVERAL ISSUES WITH MRS. GARCIA'S PAIN MANAGEMENT CASE. AT THIS TIME THE PATIENT WILL CONTINUE WITH THE SAME MEDICATION REGIME BEFORE. PATIENT WILL USE THE SOMA FOR THE MUSCLE SPASM AND PAIN, OXYCODONE ER AND NORCO FOR THE SOMATIC PAIN, AND CYMBALTA AND GABAPENTIN FOR THE NEUROPATHIC PAIN. MRS. GARCIA WILL CONTINUE USING COLACE FOR THE CONSTIPATION DUE TO THE OPIOIDS. PATIENT DENIES ABUSE OF ANY MEDICATION, DENIES USE OF ILLEGAL SUBSTANCES, AND STATES THAT SHE IS ONLY USING THE MEDICATION FOR PAIN MANAGEMENT. URINE TOXICOLOGY REPORT DONE ON 04/12/2016 SHOWS CONSISTENT RESULTS WITH THE PATIENT'S MEDICATION LIST. AT THIS TIME THE PATIENT STATES THAT MEDICATION MANAGEMENT IS THE ONLY THING THAT GIVES HER PAIN RELIEF INTERVENTIONS DO NOT GIVE LONG LASTING RELIEF. WE BRIEFLY DISCUSSED THE DCS BUT THE PATIENT STILL FEELS THAT IT IS TOO INVASIVE AT THIS TIME. MRS. GARCIA WILL RETURN IN 3 WEEKS TO FURTHER DISCUSS HER CASE AND OTHER OPTIONS FOR PAIN MANAGEMENT. INSTRUCTIONS WERE GIVEN, QUESTIONS WERE ANSWERED, PATIENT REPORTS UNDERSTANDING AND AGREES WITH THE PLAN. I, BERNICE GALLEGOS, DOCUMENTED THE ABOVE INFORMATION ACTING A SCRIBE FOR DR. WHALEY. I HAVE REVIEWED THE ABOVE DOCUMENT, WRITTEN BY BERNICE BROWN AND I VERIFY THAT IT IS ACCURATE. OTHERS REFILL CYMBALTA CAPSULE DELAYED RELEASE PARTICLES, 60 MG, 1 CAP PAIN CLINIC, ORALLY, TWICE A DAY, 30 DAY(S), 60 CAPSULE, REFILLS 2 PROCEDURES PN WORKMANS' COMP OPINION IN YOUR OPINION, WAS THE INCIDENT THAT THE PATIENT DESCRIBED THE COMPETENT MEDICAL CAUSE OF THIS INJURY/ILLNESS? YES ARE THE PATIENT'S COMPLAINTS CONSISTENT WITH HIS/HER HISTORY OF THE INJURY/ILLNESS? YES IS THE PATIENT'S HISTORY OF THE INJURY/ILLNESS CONSISTENT WITH YOUR OBJECTIVE FINDING? YES WHAT IS THE PERCENTAGE OF TEMPORARY IMPAIRMENT? MODERATE TO MARKED = 66.7% IS THE PATIENT WORKING? NO DOCTOR ON SITE: LAVERN LACY MD PROCEDURE CODES FA211 ESTABILISHED PATIENT [facility] FACILITY CHARGE G8427 DOC MEDS VERIFIED W/PT OR RE G8730 PAIN ASSESS POS TOOL F/U PLAN DOC DISPOSITION & COMMUNICATION FOLLOW UP 3 WEEKS ELECTRONICALLY SIGNED BY LAVERN WHALEY MD ON 11/13/2016 AT 12:14 PM EDT DISCLAIMER : THIS IS A VISIT SUMMARY EXTRACTED FROM THE [employer] CHART. IT IS NOT A COPY OF THE [employer] PROGRESS NOTE. MTDD
== END | disposition home or self-care (01) ==
LOC: M PAIN 15:45
PROVIDERS: ATTEND Anesthesiology
DX: G89.29 Other chronic pain (principal); M96.1 Postlaminectomy syndrome, not elsewhere classified; M51.16 Intervertebral disc disorders with radiculopathy, lumbar region; M51.17 Intervertebral disc disorders with radiculopathy, lumbosacral region; F33.9 Major depressive disorder, recurrent, unspecified; K21.9 Gastro-esophageal reflux disease without esophagitis; E78.5 Hyperlipidemia, unspecified; R60.0 Localized edema; J30.9 Allergic rhinitis, unspecified; Z79.899 Other long term (current) drug therapy; Z79.891 Long term (current) use of opiate analgesic; Z88.8 Allergy status to other drugs, medicaments and biological substances

== ENCOUNTER → 2016-11-15 | Outpatient (REF) | payer MEDICARE | LOC: M SFHCPLAZ 14:57 | PROVIDERS: ATTEND Nurse Practitioner Family | DX: E55.9 Vitamin D deficiency, unspecified (principal) ==

== ENCOUNTER → 2017-01-18 | Outpatient (CLI) | payer OTHER ==
--- NOTE | 2017-02-14 01:24 | ECWPNPC ---
PATIENT NAME: SAFIA GARCIA : 1970 GENDER: FEMALE VISIT DATE: 01/18/2017 DISCHARGE DATE: 01/18/17 1632 VISIT LOCKED DATE TIME: PHYSICIAN: DEVI ADAMS RESOURCE: DEVI ADAMS REASON FOR APPOINTMENT 1. WC HISTORY OF PRESENT ILLNESS HISTORY OF PRESENT ILLNESS: PAIN THE PATIENT DESCRIBES THE PAIN... THE PATIENT DESCRIBES THE PAIN... THE PATIENT DESCRIBES THE PAIN... THE PATIENT DESCRIBES THE PAIN... HERE FOR F/U OF CHRONIC LBP AND BILAT. LEG PAIN .THIS IS CHRONIC PAIN RELATED TO WORK RELATED INJURY DOI 2001.HX OF 2 LUMBAR SURGERIES 2001 AND 2002.CURRENT MEDICATIONS FOR WORK RELATED INJURY:SOMA 350MG TID WHICH SHE IS USING PRN,TRAMADOL 50MG 2 TAB PRN MDD4,OXYCONTIN 20MG BID,[id number] BID,NEURONTIN 600MG TID AND AMBIEN 10MG PRN .FINDS CURRENT REGIMEN SOMEWHAT EFFECTIVE BUT FEELS TRAMADOL DOES NOT HELP AT ALL. CONSTIPATION HAS BEEN CONTROLLED WITH PRN COLACE 100MG 1-2 TAB AND SENEKOT 1 DAILY.RATING PAIN VAS 6/10.DISCUSSED MEDICATION OPTIONS TO INCLUDE OPIOD ROTATION AND CONSIDERING DCS AGAIN. SHE WAS UNABLE TO GO THROUGH WITH DCS TRIAL 1 YR AGO SHE IS AND WAS UNDER ALOT OF STRESS. FALL RISK SCREENING: SCREENING :NO FALLS IN THE PAST YEAR CURRENT MEDICATIONS TAKING GABAPENTIN 600 MG TABLET 1 TABLET ORALLY THREE TIMES A DAY TAKING COLACE 100 MG CAPSULE 2 CAP(S) ORALLY ONCE A DAY NEEDED FOR CONSTIPATION TAKING CYMBALTA 60 MG CAPSULE DELAYED RELEASE PARTICLES 1 CAP PAIN CLINIC ORALLY TWICE A DAY TAKING MAGNESIUM OXIDE 500 MG TABLET 1 TABLET WITH MEAL ORALLY DAILY TAKING VITAMIN C 500 MG TABLET CHEWABLE 1 TAB ORALLY ONCE A DAY TAKING MULTI-VITAMIN 1 TABLET 1 TAB ORALLY ONCE A DAY TAKING FISH OIL 1000 MG CAPSULE 1 CAP ORALLY TWICE A DAY TAKING MIRENA 20 MCG/24HR INTRAUTERINE DEVICE 1 DEVICE WTW INTRAUTERINE PLACED 12/2013, NOTES: WTW TAKING VALACYCLOVIR HCL 1 GM TABLET 1 TAB ORALLY EVERY 24 HRS NEEDED TAKING FLUTICASONE PROPIONATE 0.05 % CREAM 1 APPLICATION TO AFFECTED AREA EXTERNALLY TO GENITALIA ONCE A DAY TAKING VALERIAN 250 MG CAPSULE 1-2 CAPSULE BEFORE BEDTIME NEEDED ORALLY ONCE A DAY TAKING MELATONIN 300 MCG TABLET 1 TABLET AT BEDTIME NEEDED WITH FOOD ORALLY ONCE A DAY TAKING NORCO 7.5-325 MG TABLET 1 ORALLY EVERY 6 HRS PRN PAIN MDD4 TAKING SOMA 350 MG TABLET 1 TAB ORALLY Q8H TID MDD3, NOTES: PAIN CLINIC TAKING OXYCODONE HCL ER 20 MG TABLET ER 12 HOUR ABUSE-DETERRENT 1 TABLET ORALLY EVERY 12 HRS MDD2 TAKING LANSOPRAZOLE 30 MG CAPSULE DELAYED RELEASE 1 CAPSULE ORALLY ONCE A DAY TAKING PRAVASTATIN SODIUM 40 MG TABLET 1 TABLET ORALLY ONCE A DAY TAKING FLUCONAZOLE 150 MG TABLET 1 TABLET ORALLY DAILY NEEDED TAKING FLONASE 50 MCG/ACT SUSPENSION 1 PUFF IN EACH NOSTRIL NASALLY TWICE DAILY TAKING AF LORATADINE 10 MG TABLET 1 TABLET ORALLY ONCE A DAY TAKING SALINE NASAL SPRAY 0.65 % SOLUTION 2 SPRAYS IN EACH NOSTRIL NEEDED NASALLY EVERY 4 HRS NEEDED TAKING CALCIUM 600 + D 600-400 MG-UNIT TABLET 1 TABLET ORALLY ONCE A DAY TAKING VITAMIN D-3 1000 UNIT CAPSULE 2 CAPS WITH FOOD ORALLY ONCE A DAY TAKING KETOCONAZOLE 2 % CREAM 1 APPLICATION TO AFFECTED AREAS ON BODY EXTERNALLY TWICE A DAY NOT-TAKING FIBERCHOICE 2 GM TABLET CHEWABLE 1 TAB(S) ORALLY ONCE A DAY DISCONTINUED OFLOXACIN 0.3 % SOLUTION 10 DROPS INTO AFFECTED EAR OTIC ONCE A DAY DISCONTINUED AMOXICILLIN 875 MG TABLET 1 TABLET ORALLY EVERY 12 HRS MEDICATION LIST REVIEWED AND RECONCILED WITH THE PATIENT PAST MEDICAL HISTORY DEPRESSION REFLUX SEASONAL AND ENVIRONMENTAL ALLERGIES HYPERLIPIDEMIA REMOTE HX DYSPLASIA CHRONIC BACK AND NECK PROBLEMS EDEMA ALLERGIES FLEXERIL: HIVES: ALLERGY CELEBREX: RASH: ALLERGY LYRICA: RASH,FACE SWELLING: ALLERGY REVIEW OF SYSTEMS REVIEWED BY: PROVIDER: DEVI REYNOLDS . CONSTITUTIONAL: ANY CHANGE IN YOUR MEDICAL CONDITION? NO . CHILLS NO . FEVER NO . INFECTION: DO YOU HAVE NEW INFECTIONS? NO . DO YOU HAVE HISTORY OF MRSA? NO . MUSCULOSKELETAL: ANY NEW PATTERNS OF PAIN OR NUMBNESS? NO . GASTROENTEROLOGY: ANY NEW CHANGE IN BOWEL CONTROL? NO . GENITOURINARY: ANY NEW CHANGE IN BLADDER CONTROL? NO . IS THERE A CHANCE YOU COULD BE ? NO . HEMATOLOGY/LYMPH: DO YOU TAKE ANY BLOOD THINNERS? (FOR EXAMPLE- COUMADIN, PLAVIX, AGGRENOX, PLATEL, PRADAXA, OR XARELTO) NO . WHEN WAS YOUR LAST DOSE? DATE: TIME: . NEUROLOGY: HAVE YOU FALLEN IN THE PAST 6 MONTHS? NO . ANY NEW EXTREMITY NUMBNESS OR WEAKNESS? NO . CARDIOLOGY: DO YOU HAVE A PACEMAKER OR DEFIBRILLATOR? NO . RESPIRATORY: HAVE YOU BEEN SICK IN THE PAST WEEK? YES, BAD EAR INFECTION-TREATED WITH ORAL ANTIBIOTIC AND ANTIBIOTIC EAR DROP . FEVER NO . FLU LIKE SYMPTOMS? NO . COUGH NO . INTEGUMENTARY: DO YOU HAVE ANY RASHES OR OPEN SORES? YES, RED SORES ALL OVER . ALLERGIC/IMMUNO: ARE YOU ALLERGIC TO SHELLFISH OR IV DYE? NO . ANY NEW ALLERGIES? NO . PSYCHIATRIC: DO YOU HAVE THOUGHTS OF HURTING YOURSELF OR SOMEONE ELSE? NO . ARE YOU ABUSED, NEGLECTED, OR IN AN UNSAFE ENVIRONMENT? NO . ENDOCRINOLOGY: ARE YOU DIABETIC? NO . OTHER: DO YOU NEED ANY PRESCRIPTIONS? YES . IF YES, PLEASE LIST: CYMBALTA,SOMA,NEURONTIN,OXYCODONE ER , NORCO . ANY NEW PROBLEMS WITH YOUR MEDICATIONS? NO . WHEN DID YOU LAST EAT? ____ . WHEN DID YOU LAST DRINK? ____ . WHAT DID YOU LAST DRINK? ____ . NAME OF PERSON DRIVING YOU HOME? ____ . DO YOU HAVE ANY OTHER QUESTIONS OR CONCERNS NO . VITAL SIGNS WT 179.2 LBS, HT 64.5 IN, BMI 30.28 INDEX, BP 153/85 MM HG, HR 93 /MIN, RR 16 /MIN, TEMP 98.3 F, OXYGEN SAT % 98%, NA INITIALS TL 1528, REVIEWED BY: AD. EXAMINATION GENERAL EXAMINATION: LUNGS:LUNG SOUNDS ARE CLEAR. HEART:HEART RATE REGULAR. MUSCULOSKELETAL:*, MUSCLE STRENGTH TESTING 5/5 BILATERAL, PALPATION: POSITIVE FOR PAIN OVER L/S SPINE. POSITIVE FOR PAIN OVER L/S PARSPINALS. ASSESSMENTS POST LAMINECTOMY SYNDROME - M96.1 (PRIMARY) CHRONIC PRESCRIPTION OPIATE USE - Z79.891 TREATMENT POST LAMINECTOMY SYNDROME REFILL GABAPENTIN TABLET, 600 MG, 1 TABLET, ORALLY, THREE TIMES A DAY, 30 DAY(S), 90 TABLET, REFILLS 2 REFILL COLACE CAPSULE, 100 MG, 2 CAP(S), ORALLY, ONCE A DAY NEEDED FOR CONSTIPATION, 30 DAY(S), 50, REFILLS 2 REFILL CYMBALTA CAPSULE DELAYED RELEASE PARTICLES, 60 MG, 1 CAP PAIN CLINIC, ORALLY, TWICE A DAY, 30 DAY(S), 60 CAPSULE, REFILLS 2 REFILL NORCO TABLET, 7.5-325 MG, 1, ORALLY, EVERY 6 HRS PRN PAIN MDD4, 30 DAY(S), 110, REFILLS 0 REFILL SOMA TABLET, 350 MG, 1 TAB, ORALLY, Q8H TID MDD3, 30 DAY(S), 80, REFILLS 0, NOTES: PAIN CLINIC REFILL OXYCODONE HCL ER TABLET ER 12 HOUR ABUSE-DETERRENT, 20 MG, 1 TABLET, ORALLY, EVERY 12 HRS MDD2, 30 DAY(S), 60, REFILLS 0 NOTES: ISTOP REGISTRY REVIEWED AND DEMNOSTRATES COMPLLIANCE. BRINGS IN MEDICATIONS WHICH IS APPROPRIATE FOR WHAT WAS DISPENSED. RECENT URINE TOXICOLOGY REVIEWED. NO UNAUTHORIZED MEDICATIONS. NO ILLICIT SUBSTANCES AND PRESCRIBED MEDICATIONS WERE PRESENT. URINE TOX TODAY, RISKS AND BENEFITS OF NARCOTIC/OPIOD MEDICATIONS WERE REVIEWED WITH PATIENT - THIS INCLUDES BUT IS NOT LIMITED TO RISK OF DEPENDANCE/DEVELOPMENT OF ADDICTION, MOOD DISTURBANCE AND DEPRESSION, OSTEOPOROSIS, HORMONAL AND LABIDAL CHANGES, RESPIRATORY DEPRESSION AND . PATIENT IS ADVISED NOT TO DRIVE WHILE ON THESE MEDICATIONS. PROCEDURES PN WORKMANS' COMP OPINION IN YOUR OPINION, WAS THE INCIDENT THAT THE PATIENT DESCRIBED THE COMPETENT MEDICAL CAUSE OF THIS INJURY/ILLNESS? YES ARE THE PATIENT'S COMPLAINTS CONSISTENT WITH HIS/HER HISTORY OF THE INJURY/ILLNESS? YES IS THE PATIENT'S HISTORY OF THE INJURY/ILLNESS CONSISTENT WITH YOUR OBJECTIVE FINDING? YES WHAT IS THE PERCENTAGE OF TEMPORARY IMPAIRMENT? MODERATE TO MARKED = 66.7% IS THE PATIENT WORKING? NO DOCTOR ON SITE: LAVERN LACY MD PROCEDURE CODES FA211 ESTABILISHED PATIENT [facility] CHARGE DISPOSITION & COMMUNICATION FOLLOW UP 4 WEEKS ELECTRONICALLY SIGNED BY GAIL ADAMS ON 02/13/2017 AT 08:12 PM EDT DISCLAIMER : THIS IS A VISIT SUMMARY EXTRACTED FROM THE [employer] CHART. IT IS NOT A COPY OF THE [employer] PROGRESS NOTE. MTDD
== END ==
LOC: M PAIN 15:20
PROVIDERS: ATTEND Anesthesiology
DX: M96.1 Postlaminectomy syndrome, not elsewhere classified (principal); F32.9 Major depressive disorder, single episode, unspecified; K21.9 Gastro-esophageal reflux disease without esophagitis; J30.89 Other allergic rhinitis; E78.2 Mixed hyperlipidemia; E55.9 Vitamin D deficiency, unspecified; Z88.8 Allergy status to other drugs, medicaments and biological substances; Z79.891 Long term (current) use of opiate analgesic; Z79.899 Other long term (current) drug therapy

== ENCOUNTER → 2017-03-24 | Outpatient (CLI) | payer OTHER ==
--- NOTE | 2017-04-17 00:06 | ECWPNPC ---
PATIENT NAME: SAFIA GARCIA : 1970 GENDER: FEMALE VISIT DATE: 03/24/2017 DISCHARGE DATE: 03/24/17 1408 VISIT LOCKED DATE TIME: PHYSICIAN: DEVI ADAMS RESOURCE: DEVI ADAMS REASON FOR APPOINTMENT 1. W/C, BACK HISTORY OF PRESENT ILLNESS HISTORY OF PRESENT ILLNESS: PAIN THE PATIENT DESCRIBES THE PAIN... THE PATIENT DESCRIBES THE PAIN... THE PATIENT DESCRIBES THE PAIN... THE PATIENT DESCRIBES THE PAIN... THE PATIENT DESCRIBES THE PAIN... HERE FOR F/U OF CHRONIC LBP AND BILAT. LEG PAIN .THIS IS CHRONIC PAIN RELATED TO WORK RELATED INJURY DOI 2001.HX OF 2 LUMBAR SURGERIES 2001 AND 2002.CURRENT MEDICATIONS FOR WORK RELATED INJURY:SOMA 350MG TID WHICH SHE IS USING PRN,TRAMADOL 50MG 2 TAB PRN MDD4,OXYCONTIN 20MG BID,[id number] BID,NEURONTIN 600MG TID AND AMBIEN 10MG PRN .FINDS CURRENT REGIMEN SOMEWHAT EFFECTIVE BUT FEELS TRAMADOL DOES NOT HELP AT ALL. CONSTIPATION HAS BEEN CONTROLLED WITH PRN COLACE 100MG 1-2 TAB AND SENEKOT 1 DAILY.RATING PAIN VAS 5/10. FALL RISK SCREENING: SCREENING :NO FALLS IN THE PAST YEAR CURRENT MEDICATIONS TAKING MAGNESIUM OXIDE 500 MG TABLET 1 TABLET WITH MEAL ORALLY DAILY TAKING VITAMIN C 500 MG TABLET CHEWABLE 1 TAB ORALLY ONCE A DAY TAKING MULTI-VITAMIN 1 TABLET 1 TAB ORALLY ONCE A DAY TAKING FISH OIL 1000 MG CAPSULE 1 CAP ORALLY TWICE A DAY TAKING MIRENA 20 MCG/24HR INTRAUTERINE DEVICE 1 DEVICE WTW INTRAUTERINE PLACED 12/2013, NOTES: WTW TAKING VALACYCLOVIR HCL 1 GM TABLET 1 TAB ORALLY EVERY 24 HRS NEEDED TAKING FLUTICASONE PROPIONATE 0.05 % CREAM 1 APPLICATION TO AFFECTED AREA EXTERNALLY TO GENITALIA ONCE A DAY TAKING VALERIAN 250 MG CAPSULE 1-2 CAPSULE BEFORE BEDTIME NEEDED ORALLY ONCE A DAY TAKING MELATONIN 300 MCG TABLET 1 TABLET AT BEDTIME NEEDED WITH FOOD ORALLY ONCE A DAY TAKING FLUCONAZOLE 150 MG TABLET 1 TABLET ORALLY DAILY NEEDED TAKING AF LORATADINE 10 MG TABLET 1 TABLET ORALLY ONCE A DAY TAKING SALINE NASAL SPRAY 0.65 % SOLUTION 2 SPRAYS IN EACH NOSTRIL NEEDED NASALLY EVERY 4 HRS NEEDED TAKING CALCIUM 600 + D 600-400 MG-UNIT TABLET 1 TABLET ORALLY ONCE A DAY TAKING VITAMIN D-3 1000 UNIT CAPSULE 2 CAPS WITH FOOD ORALLY ONCE A DAY TAKING KETOCONAZOLE 2 % CREAM 1 APPLICATION TO AFFECTED AREAS ON BODY EXTERNALLY TWICE A DAY TAKING GABAPENTIN 600 MG TABLET 1 TABLET ORALLY THREE TIMES A DAY TAKING COLACE 100 MG CAPSULE 2 CAP(S) ORALLY ONCE A DAY NEEDED FOR CONSTIPATION TAKING CYMBALTA 60 MG CAPSULE DELAYED RELEASE PARTICLES 1 CAP PAIN CLINIC ORALLY TWICE A DAY TAKING FLONASE 50 MCG/ACT SUSPENSION 1 PUFF IN EACH NOSTRIL NASALLY ONCE A DAY NEEDED TAKING LANSOPRAZOLE 30 MG CAPSULE DELAYED RELEASE 1 CAPSULE ORALLY ONCE A DAY TAKING PRAVASTATIN SODIUM 40 MG TABLET 1 TABLET ORALLY ONCE A DAY TAKING NORCO 7.5-325 MG TABLET 1 ORALLY EVERY 6 HRS PRN PAIN MDD4 TAKING SOMA 350 MG TABLET 1 TAB ORALLY Q8H TID MDD3, NOTES: PAIN CLINIC TAKING OXYCODONE HCL ER 20 MG TABLET ER 12 HOUR ABUSE-DETERRENT 1 TABLET ORALLY EVERY 12 HRS MDD2 NOT-TAKING FIBERCHOICE 2 GM TABLET CHEWABLE 1 TAB(S) ORALLY ONCE A DAY MEDICATION LIST REVIEWED AND RECONCILED WITH THE PATIENT PAST MEDICAL HISTORY DEPRESSION REFLUX SEASONAL AND ENVIRONMENTAL ALLERGIES HYPERLIPIDEMIA REMOTE HX DYSPLASIA CHRONIC BACK AND NECK PROBLEMS EDEMA PSORIATIC ARTHRITIS ALLERGIES FLEXERIL: HIVES: ALLERGY CELEBREX: RASH: ALLERGY LYRICA: RASH,FACE SWELLING: ALLERGY REVIEW OF SYSTEMS REVIEWED BY: PROVIDER: DEVI REYNOLDS . CONSTITUTIONAL: ANY CHANGE IN YOUR MEDICAL CONDITION? PSORIATIC ARTHRITIS/ WILL BE STARTING ON [employer] . CHILLS NO . FEVER NO . INFECTION: DO YOU HAVE NEW INFECTIONS? NO . DO YOU HAVE HISTORY OF MRSA? NO . MUSCULOSKELETAL: ANY NEW PATTERNS OF PAIN OR NUMBNESS? NO . GASTROENTEROLOGY: ANY NEW CHANGE IN BOWEL CONTROL? NO . GENITOURINARY: ANY NEW CHANGE IN BLADDER CONTROL? NO . IS THERE A CHANCE YOU COULD BE ? NO . HEMATOLOGY/LYMPH: DO YOU TAKE ANY BLOOD THINNERS? (FOR EXAMPLE- COUMADIN, PLAVIX, AGGRENOX, PLATEL, PRADAXA, OR XARELTO) NO . WHEN WAS YOUR LAST DOSE? DATE: TIME: . NEUROLOGY: HAVE YOU FALLEN IN THE PAST 6 MONTHS? NO . ANY NEW EXTREMITY NUMBNESS OR WEAKNESS? NO . CARDIOLOGY: DO YOU HAVE A PACEMAKER OR DEFIBRILLATOR? NO . RESPIRATORY: HAVE YOU BEEN SICK IN THE PAST WEEK? NO . FEVER NO . FLU LIKE SYMPTOMS? NO . COUGH NO . INTEGUMENTARY: DO YOU HAVE ANY RASHES OR OPEN SORES? NO . ALLERGIC/IMMUNO: ARE YOU ALLERGIC TO SHELLFISH OR IV DYE? NO . ANY NEW ALLERGIES? NO . PSYCHIATRIC: DO YOU HAVE THOUGHTS OF HURTING YOURSELF OR SOMEONE ELSE? NO . ARE YOU ABUSED, NEGLECTED, OR IN AN UNSAFE ENVIRONMENT? NO . ENDOCRINOLOGY: ARE YOU DIABETIC? NO . OTHER: DO YOU NEED ANY PRESCRIPTIONS? YES . IF YES, PLEASE LIST: SOMA, CYMBALTA, NEURONTIN, VICODIN . ANY NEW PROBLEMS WITH YOUR MEDICATIONS? NO . WHEN DID YOU LAST EAT? ____ . WHEN DID YOU LAST DRINK? ____ . WHAT DID YOU LAST DRINK? ____ . NAME OF PERSON DRIVING YOU HOME? ____ . DO YOU HAVE ANY OTHER QUESTIONS OR CONCERNS NO . VITAL SIGNS WT 178 LBS, HT 64.5 IN, BMI 30.08 INDEX, BP 127/71 MM HG, HR 94 /MIN, RR 18 /MIN, TEMP 97.5 F, OXYGEN SAT % 95, REVIEWED BY: NL. EXAMINATION GENERAL EXAMINATION: LUNGS:LUNG SOUNDS ARE CLEAR. HEART:HEART RATE REGULAR. MUSCULOSKELETAL:*, MUSCLE STRENGTH TESTING 5/5 BILATERAL, PALPATION: POSITIVE FOR PAIN OVER L/S SPINE. POSITIVE FOR PAIN OVER L/S PARASPINALS. ASSESSMENTS POST LAMINECTOMY SYNDROME - M96.1 (PRIMARY) CHRONIC PRESCRIPTION OPIATE USE - Z79.891 TREATMENT POST LAMINECTOMY SYNDROME REFILL GABAPENTIN TABLET, 600 MG, 1 TABLET, ORALLY, THREE TIMES A DAY, 30 DAY(S), 90 TABLET, REFILLS 2 CONTINUE COLACE CAPSULE, 100 MG, 2 CAP(S), ORALLY, ONCE A DAY NEEDED FOR CONSTIPATION REFILL CYMBALTA CAPSULE DELAYED RELEASE PARTICLES, 60 MG, 1 CAP PAIN CLINIC, ORALLY, TWICE A DAY, 30 DAY(S), 60 CAPSULE, REFILLS 2 REFILL NORCO TABLET, 7.5-325 MG, 1, ORALLY, EVERY 6 HRS PRN PAIN MDD4, 30 DAY(S), 110, REFILLS 0 REFILL SOMA TABLET, 350 MG, 1 TAB, ORALLY, Q8H TID MDD3, 30 DAY(S), 80, REFILLS 0, NOTES: PAIN CLINIC REFILL OXYCODONE HCL ER TABLET ER 12 HOUR ABUSE-DETERRENT, 20 MG, 1 TABLET, ORALLY, EVERY 12 HRS MDD2, 30 DAY(S), 60, REFILLS 0 NOTES: ISTOP REGISTRY REVIEWED [id number] AND DEMNOSTRATES COMPLLIANCE. BRINGS IN MEDICATIONS WHICH IS APPROPRIATE FOR WHAT WAS DISPENSED. RECENT URINE TOXICOLOGY REVIEWED. NO UNAUTHORIZED MEDICATIONS. NO ILLICIT SUBSTANCES AND PRESCRIBED MEDICATIONS WERE PRESENT. , RISKS AND BENEFITS OF NARCOTIC/OPIOD MEDICATIONS WERE REVIEWED WITH PATIENT - THIS INCLUDES BUT IS NOT LIMITED TO RISK OF DEPENDANCE/DEVELOPMENT OF ADDICTION, MOOD DISTURBANCE AND DEPRESSION, OSTEOPOROSIS, HORMONAL AND LABIDAL CHANGES, RESPIRATORY DEPRESSION AND . PATIENT IS ADVISED NOT TO DRIVE WHILE ON THESE MEDICATIONS. PROCEDURES PN WORKMANS' COMP OPINION IN YOUR OPINION, WAS THE INCIDENT THAT THE PATIENT DESCRIBED THE COMPETENT MEDICAL CAUSE OF THIS INJURY/ILLNESS? YES ARE THE PATIENT'S COMPLAINTS CONSISTENT WITH HIS/HER HISTORY OF THE INJURY/ILLNESS? YES IS THE PATIENT'S HISTORY OF THE INJURY/ILLNESS CONSISTENT WITH YOUR OBJECTIVE FINDING? YES WHAT IS THE PERCENTAGE OF TEMPORARY IMPAIRMENT? MODERATE TO MARKED = 66.7% IS THE PATIENT WORKING? NO DOCTOR ON SITE: LAVERN LACY MD PROCEDURE CODES FA211 ESTABILISHED PATIENT [facility] FACILITY CHARGE DISPOSITION & COMMUNICATION FOLLOW UP 2 MONTHS ELECTRONICALLY SIGNED BY GAIL ADAMS ON 04/16/2017 AT 06:29 PM EDT DISCLAIMER : THIS IS A VISIT SUMMARY EXTRACTED FROM THE [employer] CHART. IT IS NOT A COPY OF THE [employer] PROGRESS NOTE. SANJIV
== END ==
LOC: M PAIN 13:30
PROVIDERS: ATTEND Nurse Practitioner Family
DX: M96.1 Postlaminectomy syndrome, not elsewhere classified (principal); G89.29 Other chronic pain; E78.2 Mixed hyperlipidemia; J30.89 Other allergic rhinitis; K21.9 Gastro-esophageal reflux disease without esophagitis; E55.9 Vitamin D deficiency, unspecified; G47.09 Other insomnia; Z79.891 Long term (current) use of opiate analgesic; Z79.899 Other long term (current) drug therapy; Z88.8 Allergy status to other drugs, medicaments and biological substances

== ENCOUNTER → 2017-05-31 | Outpatient (CLI) | payer OTHER ==
--- NOTE | 2017-06-16 01:28 | ECWPNPC ---
PATIENT NAME: SAFIA GARCIA : 1970 GENDER: FEMALE VISIT DATE: 05/31/2017 DISCHARGE DATE: 05/31/17 1147 VISIT LOCKED DATE TIME: PHYSICIAN: DEVI ADAMS RESOURCE: DEVI ADAMS REASON FOR APPOINTMENT 1. W/C, BACK HISTORY OF PRESENT ILLNESS HISTORY OF PRESENT ILLNESS: PAIN THE PATIENT DESCRIBES THE PAIN... THE PATIENT DESCRIBES THE PAIN... THE PATIENT DESCRIBES THE PAIN... THE PATIENT DESCRIBES THE PAIN... THE PATIENT DESCRIBES THE PAIN... THE PATIENT DESCRIBES THE PAIN... PAIN THE PATIENT DESCRIBES THE PAIN... THE PATIENT DESCRIBES THE PAIN... THE PATIENT DESCRIBES THE PAIN... THE PATIENT DESCRIBES THE PAIN... THE PATIENT DESCRIBES THE PAIN... THE PATIENT DESCRIBES THE PAIN... HERE FOR F/U OF CHRONIC LBP AND BILAT. LEG PAIN .THIS IS CHRONIC PAIN RELATED TO WORK RELATED INJURY DOI 2001.HX OF 2 LUMBAR SURGERIES 2001 AND 2002.CURRENT MEDICATIONS FOR WORK RELATED INJURY:SOMA 350MG TID WHICH SHE IS USING PRN,TRAMADOL 50MG 2 TAB PRN MDD4,OXYCONTIN 20MG BID,[id number] BID,NEURONTIN 600MG TID AND AMBIEN 10MG PRN .FINDS CURRENT REGIMEN SOMEWHAT EFFECTIVE BUT FEELS TRAMADOL DOES NOT HELP AT ALL. CONSTIPATION HAS BEEN CONTROLLED WITH PRN COLACE 100MG 1-2 TAB AND SENEKOT 1 DAILY.RATING PAIN VAS 5/10. FALL RISK SCREENING: SCREENING :NO FALLS IN THE PAST YEAR CURRENT MEDICATIONS TAKING MAGNESIUM OXIDE 500 MG TABLET 1 TABLET WITH MEAL ORALLY DAILY TAKING VITAMIN C 500 MG TABLET CHEWABLE 1 TAB ORALLY ONCE A DAY TAKING MULTI-VITAMIN 1 TABLET 1 TAB ORALLY ONCE A DAY TAKING FISH OIL 1000 MG CAPSULE 1 CAP ORALLY TWICE A DAY TAKING MIRENA 20 MCG/24HR INTRAUTERINE DEVICE 1 DEVICE WTW INTRAUTERINE PLACED 12/2013, NOTES: WTW TAKING VALACYCLOVIR HCL 1 GM TABLET 1 TAB ORALLY EVERY 24 HRS NEEDED TAKING VALERIAN 250 MG CAPSULE 1-2 CAPSULE BEFORE BEDTIME NEEDED ORALLY ONCE A DAY TAKING MELATONIN 300 MCG TABLET 1 TABLET AT BEDTIME NEEDED WITH FOOD ORALLY ONCE A DAY TAKING FLUCONAZOLE 150 MG TABLET 1 TABLET ORALLY DAILY NEEDED TAKING GABAPENTIN 600 MG TABLET 1 TABLET ORALLY THREE TIMES A DAY TAKING COLACE 100 MG CAPSULE 2 CAP(S) ORALLY ONCE A DAY NEEDED FOR CONSTIPATION TAKING LANSOPRAZOLE 30 MG CAPSULE DELAYED RELEASE 1 CAPSULE ORALLY ONCE A DAY TAKING PRAVASTATIN SODIUM 40 MG TABLET 1 TABLET ORALLY ONCE A DAY TAKING VITAMIN D-3 1000 UNIT CAPSULE 4 CAPS WITH FOOD ORALLY ONCE A DAY TAKING CALCIUM 600 + D 600-400 MG-UNIT TABLET 1 TABLET ORALLY ONCE A DAY TAKING AF LORATADINE 10 MG TABLET 1 TABLET ORALLY ONCE A DAY TAKING SALINE NASAL SPRAY 0.65 % SOLUTION 2 SPRAYS IN EACH NOSTRIL NEEDED NASALLY EVERY 4 HRS NEEDED TAKING FLONASE 50 MCG/ACT SUSPENSION 1 PUFF IN EACH NOSTRIL NASALLY TWICE DAILY TAKING CYMBALTA 60 MG CAPSULE DELAYED RELEASE PARTICLES 1 CAP PAIN CLINIC ORALLY TWICE A DAY TAKING SOMA 350 MG TABLET 1 TAB ORALLY Q8H TID MDD3, NOTES: PAIN CLINIC TAKING OXYCODONE HCL ER 20 MG TABLET ER 12 HOUR ABUSE-DETERRENT 1 TABLET ORALLY EVERY 12 HRS MDD2 TAKING NORCO 7.5-325 MG TABLET 1 ORALLY EVERY 6 HRS PRN PAIN MDD4 TAKING HUMIRA PEN 40 MG/0.8ML PEN-INJECTOR KIT 0.8 ML SUBCUTANEOUS EVERY OTHER WEEK NOT-TAKING FLUTICASONE PROPIONATE 0.05 % CREAM 1 APPLICATION TO AFFECTED AREA EXTERNALLY TO GENITALIA ONCE A DAY NOT-TAKING KETOCONAZOLE 2 % CREAM 1 APPLICATION TO AFFECTED AREAS ON BODY EXTERNALLY TWICE A DAY NOT-TAKING FIBERCHOICE 2 GM TABLET CHEWABLE 1 TAB(S) ORALLY ONCE A DAY MEDICATION LIST REVIEWED AND RECONCILED WITH THE PATIENT PAST MEDICAL HISTORY DEPRESSION REFLUX SEASONAL AND ENVIRONMENTAL ALLERGIES HYPERLIPIDEMIA REMOTE HX DYSPLASIA CHRONIC BACK AND NECK PROBLEMS EDEMA PSORIATIC ARTHRITIS ALLERGIES FLEXERIL: HIVES: ALLERGY CELEBREX: RASH: ALLERGY LYRICA: RASH,FACE SWELLING: ALLERGY SURGICAL HISTORY BREAST REDUCTION APPENDECTOMY D&C ROTATOR CUFF TEAR REPAIR-RIGHT BACK SURGERY-FUSION L4-L5 X 2 LASER SURGERY FOR DYSPLASIA SINUS SURGERY X2 COLPOSCOPY WITH ELLE 10/03/2016 SOCIAL HISTORY GENERAL: TOBACCO USE ARE YOU A:NONSMOKER NEVER SMOKER ALCOHOL SCREENING DID YOU HAVE A DRINK CONTAINING ALCOHOL IN THE PAST YEAR?NO POINTS0 INTERPRETATIONNEGATIVE RECREATIONAL DRUG USE DRUG USE?NO CAFFEINE CAFFEINE USE?YES HOW OFTEN AND HOW MUCH? 3 CUPS OF COFFEE PER DAY SEXUAL HX HAD SEX IN THE LAST 12 MONTHS (VAGINAL, ORAL, OR ANAL)?NO HAVE YOU EVER HAD AN STD?YES HERPES?YES LMP:MIRENA OCCUPATION: DISABLED. DIET: REGULAR. EXERCISE: DAILY, WALKS. MARITAL STATUS: .. LANGUAGE LANGUAGES SPOKEN:WELSH EDUCATION LEVEL OF EDUCATION:FINISHED COLLEGE LEARNING BARRIERS / SPECIAL NEEDS CHANGE FROM LAST VISIT?NO BARRIERS TO LEARNING?NO HEARING IMPAIRED?NO VISION IMPAIRED?NO COGNITIVELY IMPAIRED?NO READINESS TO LEARN?YES LEARNING PREFERENCES?NO LEARNING CAPABILITIES PRESENT?YES EMOTIONAL BARRIERS?NO SPECIAL DEVICES?NO CEMENT PAVER NEEDED?NO PAIN CLINIC PFS, CLERGY, PUBLIC HEALTH REFERRALS PFS REFERRAL NEEDED?NO CLERGY REFERRAL NEEDED?NO PUBLIC HEALTH REFERRAL NEEDED?NO WAS THE PROVIDER NOTIFIED OF ANY PERTINENT INFO?NO HAS THE PATIENT BEEN EDUCATED REGARDING HIS/HER PLAN OF CARE?YES HAS THE PATIENT BEEN EDUCATED REGARDING PAIN, THE RISK FOR PAIN, THE IMPORTANCE OF EFFECTIVE PAIN MANAGEMENT, AND THE PAIN ASSESSMENT PROCESS?YES PATIENT: ____. TRAVEL OUTSIDE US: NO. DOMESTIC VIOLENCE DO YOU FEEL SAFE IN YOUR ENVIRONMENT?YES HOSPITALIZATION/MAJOR DIAGNOSTIC PROCEDURE RELATED TO SURGERIES REVIEW OF SYSTEMS REVIEWED BY: PROVIDER: DEVI REYNOLDS . CONSTITUTIONAL: ANY CHANGE IN YOUR MEDICAL CONDITION? NO . CHILLS NO . FEVER NO . INFECTION: DO YOU HAVE NEW INFECTIONS? NO . DO YOU HAVE HISTORY OF MRSA? NO . MUSCULOSKELETAL: ANY NEW PATTERNS OF PAIN OR NUMBNESS? NO . GASTROENTEROLOGY: ANY NEW CHANGE IN BOWEL CONTROL? NO . GENITOURINARY: ANY NEW CHANGE IN BLADDER CONTROL? NO . IS THERE A CHANCE YOU COULD BE ? NO . HEMATOLOGY/LYMPH: DO YOU TAKE ANY BLOOD THINNERS? (FOR EXAMPLE- COUMADIN, PLAVIX, AGGRENOX, PLATEL, PRADAXA, OR XARELTO) NO . WHEN WAS YOUR LAST DOSE? DATE: TIME: . NEUROLOGY: HAVE YOU FALLEN IN THE PAST 6 MONTHS? NO . ANY NEW EXTREMITY NUMBNESS OR WEAKNESS? NO . CARDIOLOGY: DO YOU HAVE A PACEMAKER OR DEFIBRILLATOR? NO . RESPIRATORY: HAVE YOU BEEN SICK IN THE PAST WEEK? NO . FEVER NO . FLU LIKE SYMPTOMS? NO . COUGH NO . INTEGUMENTARY: DO YOU HAVE ANY RASHES OR OPEN SORES? NO . ALLERGIC/IMMUNO: ARE YOU ALLERGIC TO SHELLFISH OR IV DYE? NO . ANY NEW ALLERGIES? NO . PSYCHIATRIC: DO YOU HAVE THOUGHTS OF HURTING YOURSELF OR SOMEONE ELSE? NO . ARE YOU ABUSED, NEGLECTED, OR IN AN UNSAFE ENVIRONMENT? NO . ENDOCRINOLOGY: ARE YOU DIABETIC? NO . OTHER: DO YOU NEED ANY PRESCRIPTIONS? YES, CYMBALTA, SOMMA, NEURONTIN . IF YES, PLEASE LIST: ____ . ANY NEW PROBLEMS WITH YOUR MEDICATIONS? NO . WHEN DID YOU LAST EAT? ____ . WHEN DID YOU LAST DRINK? ____ . WHAT DID YOU LAST DRINK? ____ . NAME OF PERSON DRIVING YOU HOME? ____ . DO YOU HAVE ANY OTHER QUESTIONS OR CONCERNS NO . VITAL SIGNS WT 183.6 LBS, HT 64.5 IN, BMI 31.02 INDEX, BP 145/82 MM HG, HR 84 /MIN, RR 18 /MIN, TEMP 97.8 F, OXYGEN SAT % 98%, NA INITIALS SC 11:12, REVIEWED BY: EM. EXAMINATION GENERAL EXAMINATION: LUNGS:LUNG SOUNDS ARE CLEAR. HEART:HEART RATE REGULAR. MUSCULOSKELETAL:*, MUSCLE STRENGTH TESTING 5/5 BILATERAL, PALPATION: POSITIVE FOR PAIN OVER L/S SPINE. POSITIVE FOR PAIN OVER L/S PARASPINALS. ASSESSMENTS POST LAMINECTOMY SYNDROME - M96.1 (PRIMARY) TREATMENT POST LAMINECTOMY SYNDROME CONTINUE GABAPENTIN TABLET, 600 MG, 1 TABLET, ORALLY, THREE TIMES A DAY CONTINUE SOMA TABLET, 350 MG, 1 TAB, ORALLY, Q8H TID MDD3, NOTES: PAIN CLINIC CONTINUE OXYCODONE HCL ER TABLET ER 12 HOUR ABUSE-DETERRENT, 20 MG, 1 TABLET, ORALLY, EVERY 12 HRS MDD2 CONTINUE NORCO TABLET, 7.5-325 MG, 1, ORALLY, EVERY 6 HRS PRN PAIN MDD4 NOTES: ISTOP REGISTRY REVIEWED [id number] AND DEMNOSTRATES COMPLLIANCE. DIDNT BRING IN MEDICATION WITH HER TODAY RECENT URINE TOXICOLOGY REVIEWED. NO UNAUTHORIZED MEDICATIONS. NO ILLICIT SUBSTANCES AND PRESCRIBED MEDICATIONS WERE PRESENT. , RISKS AND BENEFITS OF NARCOTIC/OPIOD MEDICATIONS WERE REVIEWED WITH PATIENT - THIS INCLUDES BUT IS NOT LIMITED TO RISK OF DEPENDANCE/DEVELOPMENT OF ADDICTION, MOOD DISTURBANCE AND DEPRESSION, OSTEOPOROSIS, HORMONAL AND LABIDAL CHANGES, RESPIRATORY DEPRESSION AND . PATIENT IS ADVISED NOT TO DRIVE WHILE ON THESE MEDICATIONSMUST BRING IN MEDICATION FOR PILL COUNT AND IDENTIFICATION OR MONDAY THIS WEEK OR WE WILL NOT BE REFILLING MEDICATION. PROCEDURES PN WORKMANS' COMP OPINION IN YOUR OPINION, WAS THE INCIDENT THAT THE PATIENT DESCRIBED THE COMPETENT MEDICAL CAUSE OF THIS INJURY/ILLNESS? YES ARE THE PATIENT'S COMPLAINTS CONSISTENT WITH HIS/HER HISTORY OF THE INJURY/ILLNESS? YES IS THE PATIENT'S HISTORY OF THE INJURY/ILLNESS CONSISTENT WITH YOUR OBJECTIVE FINDING? YES WHAT IS THE PERCENTAGE OF TEMPORARY IMPAIRMENT? MODERATE TO MARKED = 66.7% IS THE PATIENT WORKING? NO DOCTOR ON SITE: LAVERN LACY MD PROCEDURE CODES FA211 ESTABILISHED PATIENT [facility] FACILITY CHARGE DISPOSITION & COMMUNICATION FOLLOW UP MUST SQUEEZE IN NEXT TWO DAYS FOR PILL COUNT ELECTRONICALLY SIGNED BY GAIL ADAMS ON 06/15/2017 AT 03:38 PM EST DISCLAIMER : THIS IS A VISIT SUMMARY EXTRACTED FROM THE [employer] CHART. IT IS NOT A COPY OF THE [employer] PROGRESS NOTE. SANJIV
== END ==
LOC: M PAIN 11:00
PROVIDERS: ATTEND Nurse Practitioner Family
DX: M96.1 Postlaminectomy syndrome, not elsewhere classified (principal); M54.5 Low back pain; G89.29 Other chronic pain; E78.5 Hyperlipidemia, unspecified; Z79.891 Long term (current) use of opiate analgesic; Z79.899 Other long term (current) drug therapy; Z88.8 Allergy status to other drugs, medicaments and biological substances

== ENCOUNTER → 2017-06-20 | Outpatient (CLI) | payer OTHER | LOC: M PAIN 15:30 | DX: G89.29 Other chronic pain (principal); M96.1 Postlaminectomy syndrome, not elsewhere classified; M54.5 Low back pain; M79.604 Pain in right leg; M79.605 Pain in left leg; F32.9 Major depressive disorder, single episode, unspecified; J30.89 Other allergic rhinitis; E78.5 Hyperlipidemia, unspecified; L40.52 Psoriatic arthritis mutilans; Z88.8 Allergy status to other drugs, medicaments and biological substances; Z79.891 Long term (current) use of opiate analgesic; Z79.899 Other long term (current) drug therapy | CPT/HCPCS: G0463 ==

== ENCOUNTER → 2017-08-21 | Outpatient (CLI) | payer OTHER | LOC: M PAIN 14:45 | DX: M96.1 Postlaminectomy syndrome, not elsewhere classified (principal); F32.9 Major depressive disorder, single episode, unspecified; E78.5 Hyperlipidemia, unspecified; Z79.891 Long term (current) use of opiate analgesic; Z79.899 Other long term (current) drug therapy; J30.2 Other seasonal allergic rhinitis; Z88.8 Allergy status to other drugs, medicaments and biological substances | CPT/HCPCS: G0463 ==

== ENCOUNTER → 2017-11-09 | Outpatient (CLI) | payer OTHER | LOC: M PAIN 14:45 | DX: M96.1 Postlaminectomy syndrome, not elsewhere classified (principal); F32.9 Major depressive disorder, single episode, unspecified; J30.2 Other seasonal allergic rhinitis; E78.5 Hyperlipidemia, unspecified; L40.52 Psoriatic arthritis mutilans; Z79.891 Long term (current) use of opiate analgesic; Z79.899 Other long term (current) drug therapy; Z88.8 Allergy status to other drugs, medicaments and biological substances | CPT/HCPCS: G0463 ==

== ENCOUNTER → 2018-01-09 | Outpatient (CLI) | payer OTHER, MEDICAID, MEDICARE | LOC: M PAIN 13:45 | DX: M96.1 Postlaminectomy syndrome, not elsewhere classified (principal); F32.9 Major depressive disorder, single episode, unspecified; J30.2 Other seasonal allergic rhinitis; E78.5 Hyperlipidemia, unspecified; L40.52 Psoriatic arthritis mutilans; K21.9 Gastro-esophageal reflux disease without esophagitis; Z79.891 Long term (current) use of opiate analgesic; Z79.899 Other long term (current) drug therapy; Z88.8 Allergy status to other drugs, medicaments and biological substances | CPT/HCPCS: G0463 ==

== ENCOUNTER → 2018-01-16 | Outpatient (CLI) | payer MEDICARE, MEDICAID | LOC: M WHC 14:48 | DX: Z12.31 Encounter for screening mammogram for malignant neoplasm of breast (principal); Z12.4 Encounter for screening for malignant neoplasm of cervix; Z92.0 Personal history of contraception; Z92.89 Personal history of other medical treatment; N87.0 Mild cervical dysplasia | CPT/HCPCS: 77067; G0123 ==

== ENCOUNTER → 2018-01-16 | Outpatient (REF) | payer MEDICARE, MEDICAID ==
[2018-01-18 14:40] LABS: HPV HYBRID CAPTURE II Negative (Negative)
== END ==
LOC: M SFHCWAGY 14:48
DX: Z12.4 Encounter for screening for malignant neoplasm of cervix (principal); N87.0 Mild cervical dysplasia
CPT/HCPCS: G0123

== ENCOUNTER → 2018-04-06 | Outpatient (CLI) | payer OTHER, MEDICAID, MEDICARE | LOC: M PAIN 13:30 | DX: M96.1 Postlaminectomy syndrome, not elsewhere classified (principal); F32.9 Major depressive disorder, single episode, unspecified; K21.9 Gastro-esophageal reflux disease without esophagitis; J30.2 Other seasonal allergic rhinitis; E78.5 Hyperlipidemia, unspecified; L40.50 Arthropathic psoriasis, unspecified; Z79.899 Other long term (current) drug therapy; Z98.1 Arthrodesis status; Z88.8 Allergy status to other drugs, medicaments and biological substances | CPT/HCPCS: G0463 ==

== ENCOUNTER → 2018-07-09 | Outpatient (REF) | payer MEDICARE ==
[2018-07-09 12:08] LABS: ALBUMIN 3.9 GM/DL (3.2-5.2); ALT/SGPT 35 U/L (12-78); BILIRUBIN,TOTAL 0.5 MG/DL (0.2-1.0); BLOOD UREA NITROGEN 13 MG/DL (7-18); CALCIUM LEVEL 8.5 MG/DL (8.5-10.1); CARBON DIOXIDE LEVEL 29 MEQ/L (21-32); CHLORIDE LEVEL 106 MEQ/L (98-107); CHOLESTEROL LEVEL 194 MG/DL (<200); CHOLESTEROL RISK RATIO 4.409 (<5); CREATININE FOR GFR 0.74 MG/DL (0.55-1.30); FREE T4 0.78 NG/DL (0.76-1.46); GLOMERULAR FILTRATION RATE > 60.0 (>51); GLUCOSE, FASTING 84 MG/DL (70-100); HDL CHOLESTEROL 44 MG/DL (>40); LDL CHOLESTEROL 109 MG/DL (<100); NON-HDL-C 150 MG/DL; POTASSIUM SERUM 3.9 MEQ/L (3.5-5.1); RHEUMATOID FACTOR QUANT < 10.0 IU/ML (<15.0); SODIUM LEVEL 141 MEQ/L (136-145); TOTAL PROTEIN 6.7 GM/DL (6.4-8.2); TRIGLYCERIDES LEVEL 207 MG/DL (<150)
[2018-07-11 00:06] LABS: ANA (HEP2) Negative (.)
== END ==
LOC: M SFHCPLAZ 08:27
PROVIDERS: ATTEND Nurse Practitioner Family
DX: E78.2 Mixed hyperlipidemia (principal); M25.50 Pain in unspecified joint

== ENCOUNTER → 2018-09-17 | Outpatient (CLI) | payer OTHER, MEDICARE ==
--- NOTE | 2018-10-03 00:48 | ECWPNPC ---
PATIENT NAME: SAFIA GARCIA : 1970 GENDER: FEMALE VISIT DATE: 09/17/2018 DISCHARGE DATE: 09/17/18 1658 VISIT LOCKED DATE TIME: PHYSICIAN: DEVI ADAMS RESOURCE: EDVI ADAMS REASON FOR APPOINTMENT 1. W/C HISTORY OF PRESENT ILLNESS HISTORY OF PRESENT ILLNESS: PAIN THE PATIENT DESCRIBES THE PAIN... THE PATIENT DESCRIBES THE PAIN... THE PATIENT DESCRIBES THE PAIN... THE PATIENT DESCRIBES THE PAIN... THE PATIENT DESCRIBES THE PAIN... THE PATIENT DESCRIBES THE PAIN... THE PATIENT DESCRIBES THE PAIN... THE PATIENT DESCRIBES THE PAIN... THE PATIENT DESCRIBES THE PAIN... THE PATIENT DESCRIBES THE PAIN... THE PATIENT DESCRIBES THE PAIN... THE PATIENT DESCRIBES THE PAIN... HERE FOR F/U OF CHRONIC LBP AND BILAT. LEG PAIN .THIS IS CHRONIC PAIN RELATED TO WORK RELATED INJURY DOI 2001.HX OF 2 LUMBAR SURGERIES 2001 AND 2002.CURRENT MEDICATIONS FOR WORK RELATED INJURY:SOMA 350MG TID WHICH SHE IS USING PRN,OXYCONTIN 20MG BID,[id number] BID,HYDROCODONE 7.5/325 Q6H PRN AND NEURONTIN 600MG TID .FINDS CURRENT REGIMEN SOMEWHAT EFFECTIVE AT REDUCING PAIN AND KEEPING HER FUNCTIONAL. CONSTIPATION HAS BEEN CONTROLLED WITH PRN COLACE 100MG 1-2 TAB AND SENEKOT 1 DAILY.RATING PAIN VAS 7/10.TODAY WE DISCUSSED MANDATED MEDICATION DECREASES PER W/C 05/10/18.SHE WAS VERY UPSET WITH MEDICATION CHANGES. FALL RISK SCREENING: SCREENING : NO FALLS IN THE PAST YEAR. CURRENT MEDICATIONS TAKING PRAVASTATIN SODIUM 40 MG TABLET 1 TABLET ORALLY ONCE A DAY TAKING CYMBALTA 60 MG CAPSULE DELAYED RELEASE PARTICLES 1 CAP PAIN CLINIC ORALLY TWICE A DAY TAKING VITAMIN D-3 1000 UNIT CAPSULE 4 CAPS WITH FOOD ORALLY ONCE A DAY TAKING CALCIUM 600 + D 600-400 MG-UNIT TABLET 1 TABLET ORALLY ONCE A DAY TAKING AF LORATADINE 10 MG TABLET 1 TABLET ORALLY ONCE A DAY TAKING SALINE NASAL SPRAY 0.65 % SOLUTION 2 SPRAYS IN EACH NOSTRIL NEEDED NASALLY EVERY 4 HRS NEEDED TAKING FLONASE 50 MCG/ACT SUSPENSION 1 PUFF IN EACH NOSTRIL NASALLY TWICE DAILY TAKING AZELASTINE HCL 0.1 % SOLUTION 1 PUFF IN EACH NOSTRIL NASALLY TWICE A DAY TAKING PANTOPRAZOLE SODIUM 40 MG TABLET DELAYED RELEASE 1 TABLET ORALLY ONCE A DAY TAKING MAGNESIUM OXIDE 500 MG TABLET 1 TABLET WITH MEAL ORALLY DAILY TAKING VITAMIN C 500 MG TABLET CHEWABLE 1 TAB ORALLY ONCE A DAY TAKING MULTI-VITAMIN 1 TABLET 1 TAB ORALLY ONCE A DAY TAKING FISH OIL 1000 MG CAPSULE 1 CAP ORALLY TWICE A DAY TAKING MIRENA 20 MCG/24HR INTRAUTERINE DEVICE 1 DEVICE WTW INTRAUTERINE PLACED 12/2013, NOTES: WTW TAKING VALACYCLOVIR HCL 1 GM TABLET 1 TAB ORALLY EVERY 24 HRS NEEDED TAKING VALERIAN 250 MG CAPSULE 1-2 CAPSULE BEFORE BEDTIME NEEDED ORALLY ONCE A DAY TAKING MELATONIN 300 MCG TABLET 1 TABLET AT BEDTIME NEEDED WITH FOOD ORALLY ONCE A DAY TAKING HUMIRA PEN 40 MG/0.8ML PEN-INJECTOR KIT 0.8 ML SUBCUTANEOUS EVERY OTHER WEEK TAKING MOTRIN 200 MGS 1 TAB ORALLY NEEDED TAKING FLUTICASONE PROPIONATE 0.05 % CREAM 1 APPLICATION TO AFFECTED AREA EXTERNALLY TO GENITALIA ONCE DAILY NEEDED TAKING KETOCONAZOLE 2 % CREAM 1 APPLICATION TO AFFECTED AREAS ON BODY EXTERNALLY TWICE A DAY TAKING COLACE 100 MG CAPSULE 2 CAP(S) ORALLY ONCE A DAY NEEDED FOR CONSTIPATION TAKING LIDODERM 5 % PATCH 2-3 EXTERNALLY ONCE A DAY TAKING PRAVASTATIN SODIUM 40 MG TABLET 1 TABLET ORALLY ONCE A DAY TAKING PANTOPRAZOLE SODIUM 40 MG TABLET DELAYED RELEASE 1 TABLET ORALLY ONCE A DAY TAKING SOMA 350 MG TABLET 1 TAB ORALLY Q8H TID NEEDED MDD3 TAKING GABAPENTIN 600 MG TABLET 1 TABLET ORALLY THREE TIMES A DAY TAKING AZELASTINE HCL 0.1 % SOLUTION 1 PUFF IN EACH NOSTRIL NASALLY TWICE A DAY TAKING NORCO 7.5-325 MG TABLET 1 ORALLY BID PRN MDD2 TAKING OXYCODONE HCL ER 20 MG TABLET ER 12 HOUR ABUSE-DETERRENT 1 TABLET ORALLY EVERY 12 HRS MDD2 PAST MEDICAL HISTORY DEPRESSION REFLUX SEASONAL AND ENVIRONMENTAL ALLERGIES HYPERLIPIDEMIA ASCVD RISK 4.3% ON 07/2018 REMOTE HX DYSPLASIA CHRONIC BACK AND NECK PROBLEMS EDEMA PSORIATIC ARTHRITIS ALLERGIES FLEXERIL: HIVES - ALLERGY CELEBREX: RASH - ALLERGY LYRICA: RASH,FACE SWELLING - ALLERGY SURGICAL HISTORY BREAST REDUCTION APPENDECTOMY D&C ROTATOR CUFF TEAR REPAIR-RIGHT BACK SURGERY-FUSION L4-L5 X 2 LASER SURGERY FOR DYSPLASIA SINUS SURGERY X2 COLPOSCOPY WITH ELLE 10/03/2016 FAMILY HISTORY FATHER: 58 YRS, OF [place], DIAGNOSED WITH HEART DISEASE MOTHER: ALIVE 74 YRS, HYPERLIPIDEMIA, SMOKER SIBLINGS: BROTHER - IN AT 48, SIS - HYPERLIPIDEMIA, HEART DISEASE SON(S): ADHD, OCD,ANXIETY, ASPERGERS 1 BROTHER(S) , 2 SISTER(S) . 2 SON(S) . SOCIAL HISTORY GENERAL: TOBACCO USE ARE YOU A:NONSMOKER LATEX QUESTIONNAIRE LATEX ALLERGY : HAVE YOU EVER DEVELOPED ANY TYPE OF REACTION AFTER HANDLING LATEX PRODUCTS SUCH RUBBER GLOVES, CONDOMS, DIAPHRAGMS, BALLOONS, SOCKS, OR UNDERWEAR?NO LATEX ALLERGY : HAVE YOU EVER DEVELOPED ANY TYPE OF REACTION DURING OR AFTER DENTAL APPOINTMENT, VAGINAL/RECTAL EXAMINATION, SURGICAL PROCEDURE, OR ANY OTHER EXPOSURE?NO LATEX RISK : HAVE YOU EVER HAD ANY DIFFICULTY BREATHING OR HIVES AFTER EATING OR HANDLING ANY FRUITS, OR VEGETABLES; SUCH KIWI, BANANAS, STONE FRUITS, OR CHESTNUTSNO LATEX RISK : DO YOU HAVE A PREVIOUS PERSONAL HISTORY OF MORE THAN NINE SURGERIES, SPINA BIFIDA, OR REPEATED CATHERTIZATIONS? NO LATEX RISK : ARE YOU FREQUENTLY EXPOSED TO LATEX PRODUCTS IN YOUR OCCUPATION?NO DATE ASKED : 09/17/2018 ALCOHOL SCREENING DID YOU HAVE A DRINK CONTAINING ALCOHOL IN THE PAST YEAR?NO POINTS0 INTERPRETATIONNEGATIVE RECREATIONAL DRUG USE DRUG USE?NO CAFFEINE CAFFEINE USE?YES HOW OFTEN AND HOW MUCH? 3 CUPS OF COFFEE PER DAY SEXUAL HX HAD SEX IN THE LAST 12 MONTHS (VAGINAL, ORAL, OR ANAL)?NO HAVE YOU EVER HAD AN STD?YES LMP:MIRENA HERPES?YES CHLAMYDIA?NO GC?NO SYPHILIS?NO OTHER?NO HIV / HEP-C SCREENING HIV TEST OFFERED TO PATIENT:YES DATE OFFERED:07/27/2016 TEST ACCEPTED:NO REASON:PATIENT DECLINED BROCHURE PROVIDED TO PATIENTYES HEP-C TEST OFFERED TO PATIENT:YES DATE OFFERED:07/27/2016 TEST ACCEPTED:NO REASON:PATIENT DECLINED SABIANISM [id number] NONE NO LUTHERAN BELIEFS THAT WOULD IMPACT HEALTH CARE. LANGUAGE LANGUAGES SPOKEN:EQUATORIAL GUINEAN EDUCATION LEVEL OF EDUCATION:FINISHED COLLEGE LEARNING BARRIERS / SPECIAL NEEDS CHANGE FROM LAST VISIT?NO BARRIERS TO LEARNING?NO HEARING IMPAIRED?NO VISION IMPAIRED?NO COGNITIVELY IMPAIRED?NO READINESS TO LEARN?YES LEARNING PREFERENCES?NO LEARNING CAPABILITIES PRESENT?YES EMOTIONAL BARRIERS?NO SPECIAL DEVICES?NO HEAD LINEMAN NEEDED?NO DOMESTIC VIOLENCE DO YOU FEEL SAFE IN YOUR ENVIRONMENT?YES OCCUPATION: DISABLED. DIET: REGULAR. EXERCISE: DAILY, WALKS. MARITAL STATUS: .. OTHERS AT HOME: SON. NEW PATIENT PAIN DIARY TODAY'S VISITNOTES PAIN CLINIC PFS, CLERGY, PUBLIC HEALTH REFERRALS PFS REFERRAL NEEDED?NO CLERGY REFERRAL NEEDED?NO PUBLIC HEALTH REFERRAL NEEDED?NO WAS THE PROVIDER NOTIFIED OF ANY PERTINENT INFO? N/A HAS THE PATIENT BEEN EDUCATED REGARDING HIS/HER PLAN OF CARE?YES HAS THE PATIENT BEEN EDUCATED REGARDING PAIN, THE RISK FOR PAIN, THE IMPORTANCE OF EFFECTIVE PAIN MANAGEMENT, AND THE PAIN ASSESSMENT PROCESS?YES ADVANCE DIRECTIVE ADVANCE DIRECTIVE DISCUSSED WITH PATIENT:YES PT DOES NOT HAVE ANY ADVANCED DIRECTIVES AND SHE DECLINED ASSISTANCE OR INFORMATION ON HCP AT THIS TIME. 04/06/18 RECVIEWED WITH PT. AD09/17/18 REVIEWED WITH PT LAS. HOSPITALIZATION/MAJOR DIAGNOSTIC PROCEDURE RELATED TO SURGERIES REVIEW OF SYSTEMS REVIEWED BY: PROVIDER: DEVI REYNOLDS . CONSTITUTIONAL: ANY CHANGE IN YOUR MEDICAL CONDITION? NO . CHILLS NO . FEVER NO . INFECTION: DO YOU HAVE NEW INFECTIONS? NO . DO YOU HAVE HISTORY OF MRSA? NO . MUSCULOSKELETAL: ANY NEW PATTERNS OF PAIN OR NUMBNESS? PT REPORTS HER PAIN HAS INCREASED IN INTENSITY SINCE DOSAGES WERE CHANGED. . GASTROENTEROLOGY: ANY NEW CHANGE IN BOWEL CONTROL? NO . GENITOURINARY: ANY NEW CHANGE IN BLADDER CONTROL? NO . IS THERE A CHANCE YOU COULD BE ? NO . HEMATOLOGY/LYMPH: DO YOU TAKE ANY BLOOD THINNERS? (FOR EXAMPLE- COUMADIN, PLAVIX, AGGRENOX, PLATEL, PRADAXA, OR XARELTO) NO . WHEN WAS YOUR LAST DOSE? DATE: TIME: . NEUROLOGY: HAVE YOU FALLEN IN THE PAST 12 MONTHS? NO . ANY NEW EXTREMITY NUMBNESS OR WEAKNESS? NO . CARDIOLOGY: DO YOU HAVE A PACEMAKER OR DEFIBRILLATOR? NO . RESPIRATORY: HAVE YOU BEEN SICK IN THE PAST WEEK? NO . FEVER NO . FLU LIKE SYMPTOMS? NO . COUGH NO . INTEGUMENTARY: DO YOU HAVE ANY RASHES OR OPEN SORES? NO . ALLERGIC/IMMUNO: ARE YOU ALLERGIC TO IV DYE? NO . ANY NEW ALLERGIES? NO . PSYCHIATRIC: DO YOU HAVE THOUGHTS OF HURTING YOURSELF OR SOMEONE ELSE? NO . ARE YOU ABUSED, NEGLECTED, OR IN AN UNSAFE ENVIRONMENT? NO . ENDOCRINOLOGY: ARE YOU DIABETIC? NO . OTHER: IF YES, PLEASE LIST: ____NORCO, OXYCODONE . ANY NEW PROBLEMS WITH YOUR MEDICATIONS? NO . WHEN DID YOU LAST EAT? ____ . WHEN DID YOU LAST DRINK? ____ . WHAT DID YOU LAST DRINK? ____ . NAME OF PERSON DRIVING YOU HOME? ____ . DO YOU HAVE ANY OTHER QUESTIONS OR CONCERNS NO . VITAL SIGNS WT 189.8 LBS, HT 64.5 IN, BMI 32.07 INDEX, BP 136/72 MM HG, HR 95 /MIN, RR 18 /MIN, TEMP 97.7 F, OXYGEN SAT % 94%, SAFE IN ENV? (Y/N) YES, NA INITIALS AW 1509, REVIEWED BY: RADHA. EXAMINATION GENERAL EXAMINATION: GENERAL APPEARANCE:AWAKE,ALERT ,PLEAASANT . PSYCHAFFECT NORMAL . LUNGS:LUNG LINDSYE ARE CLEAR TO AUSCULTATION BILATERALLY. GOOD MOVEMENT OF AIR . HEART:S1, S2 IN A REGULAR RATE AND RHYTHM. NO SIGNIFICANT MURMURS, RUBS OR GALLOPS NOTED . ASSESSMENTS POST LAMINECTOMY SYNDROME - M96.1 (PRIMARY) TREATMENT POST LAMINECTOMY SYNDROME DECREASE CYMBALTA CAPSULE DELAYED RELEASE PARTICLES, 60 MG, 1 CAP PAIN CLINIC, ORALLY, DAILY, 30 DAY(S), 30 CAPSULE, REFILLS 5 STOP SOMA TABLET, 350 MG, 1 TAB, ORALLY, DAILY CONTINUE GABAPENTIN TABLET, 600 MG, 1 TABLET, ORALLY, THREE TIMES A DAY REFILL NORCO TABLET, 7.5-325 MG, 1, ORALLY, BID PRN MDD2, 30 DAY(S), 60, REFILLS 0 REFILL OXYCODONE HCL ER TABLET ER 12 HOUR ABUSE-DETERRENT, 20 MG, 1 TABLET, ORALLY, EVERY 12 HRS MDD2, 30 DAY(S), 60, REFILLS 0 NOTES: ISTOP REGISTRY REVIEWED AND DEMONSTRATES COMPLLIANCE. (REF # [id number] ) BRINGS IN MEDICATIONS WHICH IS APPROPRIATE FOR WHAT WAS DISPENSED. RECENT URINE TOXICOLOGY REVIEWED. NO UNAUTHORIZED MEDICATIONS. NO ILLICIT SUBSTANCES AND PRESCRIBED MEDICATIONS WERE PRESENT. URINE TOX TODAYFORMAL PILL COUNT/ID, RISKS AND BENEFITS OF NARCOTIC/OPIOD MEDICATIONS WERE REVIEWED WITH PATIENT - THIS INCLUDES BUT IS NOT LIMITED TO RISK OF DEPENDANCE/DEVELOPMENT OF ADDICTION, MOOD DISTURBANCE AND DEPRESSION, OSTEOPOROSIS, HORMONAL AND LABIDAL CHANGES, RESPIRATORY DEPRESSION AND . PATIENT IS ADVISED NOT TO DRIVE OR DRINK ALCOHOL WHILE ON THESE MEDICATIONS, [facility] NARCOTIC AGREEMENT WAS UPDATED REVIEWED AND SIGNED TODAY BY THE PATIENT. SEE ATTACHED DOCUMENT FOR FULL DETAILS; SPECIFIC ISSUES WERE REVIEWED: 1) KEEP PAIN MEDS IN THEIR ORIGINAL BOTTLES AND ANY WEEKLY PLANNERS ARE TO BE BROUGHT TO THE PAIN CENTER AT EVERY VISIT. 2) THE PATIENT IS NOT TO INCREASE DOSING OR TIMING OF THEIR PAIN MEDICATION WITHOUT SPECIFIC DIRECTION OF THEIR PAIN CENTERPROVIDER (NOT ER OR OTHER PROVIDERS). 3) ALL PAIN MEDS ARE TO BE KEPT SECURED, IN A LOCKED BOX. 4) NO PAIN MEDS ARE TO BE SHARED WITH ANY OTHER PERSON FOR ANY REASON. 5) NO PAIN MEDS MAY BE TAKEN FROM ANY FRIENDS OR RELATIVES FOR ANY REASON 6) NO MEDS OR SUBSTANCES WHICH ARE NOT LEGAL ARE TO BE USED- NO MARIJUANA, NO COCAINE, AMPHETAMINES, HEROIN, OR OTHERS ARE EVER TO BE USED. 7)URINE TESTING IS DONE TO ACCOUNT FOR MEDS AND SUBSTANCES BEING TAKEN AND WILL BE DONE RANDOMLY. PROCEDURES PN WORKMANS' COMP OPINION IN YOUR OPINION, WAS THE INCIDENT THAT THE PATIENT DESCRIBED THE COMPETENT MEDICAL CAUSE OF THIS INJURY/ILLNESS? YES ARE THE PATIENT'S COMPLAINTS CONSISTENT WITH HIS/HER HISTORY OF THE INJURY/ILLNESS? YES IS THE PATIENT'S HISTORY OF THE INJURY/ILLNESS CONSISTENT WITH YOUR OBJECTIVE FINDING? YES WHAT IS THE PERCENTAGE OF TEMPORARY IMPAIRMENT? MODERATE TO MARKED = 66.7% IS THE PATIENT WORKING? NO DOCTOR ON SITE: LAVERN LACY MD PROCEDURE CODES FA211 ESTABILISHED PATIENT [facility] FACILITY CHARGE DISPOSITION & COMMUNICATION FOLLOW UP 6 WEEKS ELECTRONICALLY SIGNED BY GAIL KEATING ON 10/02/2018 AT 08:19 AM EDT DISCLAIMER : THIS IS A VISIT SUMMARY EXTRACTED FROM THE [employer] CHART. IT IS NOT A COPY OF THE [employer] PROGRESS NOTE. SANJIV
== END ==
LOC: M PAIN 14:30
PROVIDERS: ATTEND Nurse Practitioner Family
DX: M96.1 Postlaminectomy syndrome, not elsewhere classified (principal); F32.9 Major depressive disorder, single episode, unspecified; K21.9 Gastro-esophageal reflux disease without esophagitis; J30.2 Other seasonal allergic rhinitis; E78.5 Hyperlipidemia, unspecified; L40.52 Psoriatic arthritis mutilans; Z79.891 Long term (current) use of opiate analgesic; Z79.899 Other long term (current) drug therapy; Z88.8 Allergy status to other drugs, medicaments and biological substances

== ENCOUNTER → 2018-10-25 | Outpatient (CLI) | payer MEDICARE ==
[~2018-10-25] MED LIST changes: -/CELE20CA PO; -/DULO30CA OR; +CELE1CAP4 PO; -CVS20TAB PO; +CYMB1CAP5 OR; +OMEP20TA9 PO
== END ==
LOC: M LABDRWAD 15:01
PROVIDERS: ATTEND Nurse Practitioner
DX: Z51.81 Encounter for therapeutic drug level monitoring (principal); L40.0 Psoriasis vulgaris; Z79.899 Other long term (current) drug therapy

== ENCOUNTER → 2018-11-09 | Outpatient (CLI) | payer OTHER, MEDICARE ==
--- NOTE | 2018-11-30 04:01 | ECWPNPC ---
PATIENT NAME: SAFIA GARCIA : 1970 GENDER: FEMALE VISIT DATE: 11/09/2018 DISCHARGE DATE: 11/09/18 1052 VISIT LOCKED DATE TIME: PHYSICIAN: DEVI ADAMS RESOURCE: DEVI ADAMS DISCLAIMER : THIS IS A VISIT SUMMARY EXTRACTED FROM THE [facility] CHART. IT IS NOT A COPY OF THE [employer] PROGRESS NOTE. SANJIV
== END ==
LOC: M PAIN 10:15
PROVIDERS: ATTEND Nurse Practitioner Family
DX: M96.1 Postlaminectomy syndrome, not elsewhere classified (principal); Z86.59 Personal history of other mental and behavioral disorders; K21.9 Gastro-esophageal reflux disease without esophagitis; E78.5 Hyperlipidemia, unspecified; L40.50 Arthropathic psoriasis, unspecified; Z98.890 Other specified postprocedural states; Z88.8 Allergy status to other drugs, medicaments and biological substances; Z79.891 Long term (current) use of opiate analgesic; Z79.899 Other long term (current) drug therapy

== ENCOUNTER → 2018-11-19 | Outpatient (CLI) | payer MEDICARE ==
[2018-11-19 19:54] LABS: BASO # 0.1 10^3/uL (0.0-0.2); BASO % 0.7 % (0.0-1.0); EOS # 0.3 10^3/uL (0.0-0.50); EOS % 4.2 % (0.0-3.0); HEMATOCRIT 42.5 % (36.0-47.0); HEMOGLOBIN 13.7 g/dl (12.0-15.5); LYMPH # 2.6 10^3/uL (1.5-4.5); MEAN CORPUSCULAR HEMOGLOBIN 30.4 pg (27.0-33.0); MEAN CORPUSCULAR HGB CONC 32.2 g/dl (32.0-36.5); MEAN CORPUSCULAR VOLUME 94.2 fl (80.0-96.0); MONO # 0.7 10^3/uL (0.0-0.8); MONO % 9.7 % (0.0-5.0); NEUTROPHILS # 3.2 10^3/uL (1.8-7.7); NEUTROPHILS % 47.1 % (36.0-66.0); PLATELET COUNT, AUTOMATED 259 10^3/uL (150-450); RED BLOOD COUNT 4.51 10^6/uL (4.00-5.40); WHITE BLOOD COUNT 6.7 10^3/uL (4.0-10.0)
[2018-11-19 20:03] LABS: ALBUMIN 3.8 GM/DL (3.2-5.2); ALT/SGPT 40 U/L (12-78); BILIRUBIN,DIRECT 0.1 MG/DL (0.0-0.2); BILIRUBIN,TOTAL 0.5 MG/DL (0.2-1.0); BLOOD UREA NITROGEN 11 MG/DL (7-18); CALCIUM LEVEL 8.7 MG/DL (8.5-10.1); CARBON DIOXIDE LEVEL 30 MEQ/L (21-32); CHLORIDE LEVEL 105 MEQ/L (98-107); CREATININE FOR GFR 0.66 MG/DL (0.55-1.30); GLOMERULAR FILTRATION RATE > 60.0 (>51); GLUCOSE, FASTING 89 MG/DL (70-100); PHOSPHORUS LEVEL 3.4 MG/DL (2.5-4.9); POTASSIUM SERUM 4.2 MEQ/L (3.5-5.1); SODIUM LEVEL 141 MEQ/L (136-145); TOTAL PROTEIN 6.7 GM/DL (6.4-8.2)
== END ==
LOC: M ADAMS 16:51
PROVIDERS: ATTEND Nurse Practitioner
DX: L40.0 Psoriasis vulgaris (principal); Z51.81 Encounter for therapeutic drug level monitoring; Z79.899 Other long term (current) drug therapy

== ENCOUNTER → 2019-01-17 | Outpatient (CLI) | payer MEDICAID, MEDICARE ==
--- NOTE | 2019-01-17 16:13 | REPMRS ---
Patient History The patient states she had a clinical breast exam in 12/2018. Family history of breast cancer under age 50 in maternal aunt, colorectal cancer in paternal grandmother, prostate cancer at age 50 or over in maternal uncle, prostate cancer at age 50 or over in maternal uncle. Reductions of both breasts, 2004. Taking hormonal contraceptives for 11 years. 3D TOMOSYNTHESIS WAS PERFORMED. The [facility] lifetime risk for breast cancer is 11.4%. Digital Woman Screen Mammo: January 17, 2019 - Exam #: [id number] Bilateral CC and MLO view(s) were taken. Technologist: Porsche Eid, Technologist Prior study comparison: January 16, 2018, bilateral digital woman screen mammo performed at [facility]. September 07, 2016, digital woman screen mammo performed at [facility]. FINDINGS: The breast tissue is heterogeneously dense. This may lower the sensitivity of mammography. There has been no change in the appearance of the mammogram from the prior studies. There is a moderate amount of residual fibroglandular tissue which is fairly symmetric. There is no interval development of dominant mass, areas of architectural distortion, or clustered microcalcification typical of malignancy. Assessment: BI-RADS/ACR category 1 mammogram. Negative Mammogram. Recommendation Routine screening mammogram in 1 year (for women over age 40). This mammogram was interpreted with the aid of an FDA-approved computer-aided dectection system. Electronically Signed By: Antonino Ingram MD 01/17/19 0671
== END ==
LOC: M WHC 15:07
PROVIDERS: ATTEND Nurse Practitioner Women's Health
DX: Z12.31 Encounter for screening mammogram for malignant neoplasm of breast (principal); Z98.890 Other specified postprocedural states; Z92.0 Personal history of contraception

== ENCOUNTER → 2019-01-30 | Outpatient (CLI) | payer OTHER, MEDICARE ==
--- NOTE | 2019-02-16 01:32 | ECWPNPC ---
PATIENT NAME: SAFIA GARCIA : 1970 GENDER: FEMALE VISIT DATE: 01/30/2019 DISCHARGE DATE: 01/30/19 1409 VISIT LOCKED DATE TIME: PHYSICIAN: DEVI ADAMS RESOURCE: DEVI ADAMS REASON FOR APPOINTMENT 1. WC BACK PAIN HISTORY OF PRESENT ILLNESS HISTORY OF PRESENT ILLNESS: PAIN THE PATIENT DESCRIBES THE PAIN... THE PATIENT DESCRIBES THE PAIN... THE PATIENT DESCRIBES THE PAIN... THE PATIENT DESCRIBES THE PAIN... THE PATIENT DESCRIBES THE PAIN... THE PATIENT DESCRIBES THE PAIN... THE PATIENT DESCRIBES THE PAIN... THE PATIENT DESCRIBES THE PAIN... THE PATIENT DESCRIBES THE PAIN... THE PATIENT DESCRIBES THE PAIN... THE PATIENT DESCRIBES THE PAIN... THE PATIENT DESCRIBES THE PAIN... THE PATIENT DESCRIBES THE PAIN... THE PATIENT DESCRIBES THE PAIN... PAIN THE PATIENT DESCRIBES THE PAIN... THE PATIENT DESCRIBES THE PAIN... THE PATIENT DESCRIBES THE PAIN... THE PATIENT DESCRIBES THE PAIN... THE PATIENT DESCRIBES THE PAIN... THE PATIENT DESCRIBES THE PAIN... THE PATIENT DESCRIBES THE PAIN... THE PATIENT DESCRIBES THE PAIN... THE PATIENT DESCRIBES THE PAIN... THE PATIENT DESCRIBES THE PAIN... THE PATIENT DESCRIBES THE PAIN... THE PATIENT DESCRIBES THE PAIN... THE PATIENT DESCRIBES THE PAIN... THE PATIENT DESCRIBES THE PAIN... HERE FOR F/U OF CHRONIC LBP AND BILAT. LEG PAIN .THIS IS CHRONIC PAIN RELATED TO WORK RELATED INJURY DOI 2001.HX OF 2 LUMBAR SURGERIES 2001 AND 2002.CURRENT MEDICATIONS FOR WORK RELATED INJURY:OXYCONTIN 20MG BID,[id number] BID,HYDROCODONE 7.5/325 Q6H PRN AND NEURONTIN 600MG TID .FINDS CURRENT REGIMEN INEFFECTIVE AT REDUCING PAIN AND KEEPING HER FUNCTIONAL SINCE REDUCTIONS A FEW MONTHS AGO.REPORTING POOR SLEEP SINCE STOPPING SOMA.PAIN SCORES RANGE 8-10/10 VAS. FALL RISK SCREENING: SCREENING :NO FALLS REPORTED IN THE LAST YEAR CURRENT MEDICATIONS TAKING PRAVASTATIN SODIUM 40 MG TABLET 1 TABLET ORALLY ONCE A DAY TAKING VITAMIN D-3 1000 UNIT CAPSULE 4 CAPS WITH FOOD ORALLY ONCE A DAY TAKING CALCIUM 600 + D 600-400 MG-UNIT TABLET 1 TABLET ORALLY ONCE A DAY TAKING AF LORATADINE 10 MG TABLET 1 TABLET ORALLY ONCE A DAY TAKING SALINE NASAL SPRAY 0.65 % SOLUTION 2 SPRAYS IN EACH NOSTRIL NEEDED NASALLY EVERY 4 HRS NEEDED TAKING FLONASE 50 MCG/ACT SUSPENSION 1 PUFF IN EACH NOSTRIL NASALLY TWICE DAILY TAKING AZELASTINE HCL 0.1 % SOLUTION 1 PUFF IN EACH NOSTRIL NASALLY TWICE A DAY TAKING MAGNESIUM OXIDE 500 MG TABLET 1 TABLET WITH MEAL ORALLY DAILY TAKING VITAMIN C 500 MG TABLET CHEWABLE 1 TAB ORALLY ONCE A DAY TAKING MULTI-VITAMIN 1 TABLET 1 TAB ORALLY ONCE A DAY TAKING FISH OIL 1000 MG CAPSULE 1 CAP ORALLY TWICE A DAY TAKING MIRENA 20 MCG/24HR INTRAUTERINE DEVICE 1 DEVICE WTW INTRAUTERINE PLACED 12/2013, NOTES: WTW TAKING VALACYCLOVIR HCL 1 GM TABLET 1 TAB ORALLY EVERY 24 HRS NEEDED TAKING VALERIAN 250 MG CAPSULE 1-2 CAPSULE BEFORE BEDTIME NEEDED ORALLY ONCE A DAY TAKING MELATONIN 300 MCG TABLET 1 TABLET AT BEDTIME NEEDED WITH FOOD ORALLY ONCE A DAY TAKING HUMIRA PEN 40 MG/0.8ML PEN-INJECTOR KIT 0.8 ML SUBCUTANEOUS EVERY OTHER WEEK TAKING MOTRIN 200 MGS 1 TAB ORALLY NEEDED TAKING KETOCONAZOLE 2 % CREAM 1 APPLICATION TO AFFECTED AREAS ON BODY EXTERNALLY TWICE A DAY TAKING COLACE 100 MG CAPSULE 2 CAP(S) ORALLY ONCE A DAY NEEDED FOR CONSTIPATION TAKING LIDODERM 5 % PATCH 2-3 EXTERNALLY ONCE A DAY TAKING PANTOPRAZOLE SODIUM 40 MG TABLET DELAYED RELEASE 1 TABLET ORALLY ONCE A DAY TAKING GABAPENTIN 600 MG TABLET 1 TABLET ORALLY THREE TIMES A DAY TAKING CYMBALTA 60 MG CAPSULE DELAYED RELEASE PARTICLES 1 CAP PAIN CLINIC ORALLY DAILY TAKING MELOXICAM 15 MG TABLET 1 TABLET ORALLY ONCE A DAY TAKING HYDROCODONE-ACETAMINOPHEN 7.5-325 MG TABLET 1 TABLET NEEDED ORALLY FOR PAIN EVERY 12 HOURS NEEDED MDD2 TAKING BUPROPION HCL ER (XL) 150 MG TABLET EXTENDED RELEASE 24 HOUR 1 TABLET IN THE MORNING ORALLY ONCE A DAY TAKING OXYCODONE HCL ER 20 MG TABLET ER 12 HOUR ABUSE-DETERRENT 1 TABLET ORALLY EVERY 12 HRS MDD2 TAKING TIZANIDINE HCL 4 MG TABLET 1 TABLET NEEDED ORALLY THREE TIMES A DAY NOT-TAKING FLUTICASONE PROPIONATE 0.05 % CREAM 1 APPLICATION TO AFFECTED AREA EXTERNALLY TO GENITALIA ONCE DAILY NEEDED NOT-TAKING AZELASTINE HCL 0.1 % SOLUTION 1 PUFF IN EACH NOSTRIL NASALLY TWICE A DAY MEDICATION LIST REVIEWED AND RECONCILED WITH THE PATIENT PAST MEDICAL HISTORY DEPRESSION REFLUX SEASONAL AND ENVIRONMENTAL ALLERGIES HYPERLIPIDEMIA ASCVD RISK 4.3% ON 07/2018 REMOTE HX DYSPLASIA CHRONIC BACK AND NECK PROBLEMS EDEMA PSORIATIC ARTHRITIS ALLERGIES FLEXERIL: HIVES - ALLERGY CELEBREX: RASH - ALLERGY LYRICA: RASH,FACE SWELLING - ALLERGY SURGICAL HISTORY BREAST REDUCTION APPENDECTOMY D&C ROTATOR CUFF TEAR REPAIR-RIGHT BACK SURGERY-FUSION L4-L5 X 2 LASER SURGERY FOR DYSPLASIA SINUS SURGERY X2 COLPOSCOPY WITH ELLE 10/03/2016 FAMILY HISTORY FATHER: 58 YRS, OF [place], DIAGNOSED WITH HEART DISEASE MOTHER: ALIVE 74 YRS, HYPERLIPIDEMIA, SMOKER SIBLINGS: BROTHER - [place] AT 48, SIS - HYPERLIPIDEMIA, HEART DISEASE SON(S): ADHD, OCD,ANXIETY, ASPERGERS 1 BROTHER(S) , 2 SISTER(S) . 2 SON(S) . 2 M. UNCLES WITH PANCREATIC CA, DECEASEDM. AUNT WITH BR CA DX UNDER AGE OF 30. SOCIAL HISTORY GENERAL: TOBACCO USE ARE YOU A:NONSMOKER NEVER SMOKER HIV / HEP-C SCREENING HIV TEST OFFERED TO PATIENT:YES DATE OFFERED:07/27/2016 TEST ACCEPTED:NO HEP-C TEST OFFERED TO PATIENT:YES DATE OFFERED:07/27/2016 REASON:PATIENT DECLINED TEST ACCEPTED:NO REASON:PATIENT DECLINED BROCHURE PROVIDED TO PATIENTYES OTHERS AT HOME: SON. EDUCATION LEVEL OF EDUCATION:FINISHED COLLEGE DIET: REGULAR. LANGUAGE LANGUAGES SPOKEN:ITALIAN DOMESTIC VIOLENCE DO YOU FEEL SAFE IN YOUR ENVIRONMENT?YES NEW PATIENT PAIN DIARY TODAY'S VISITNOTES RECREATIONAL DRUG USE DRUG USE?NO EXERCISE: DAILY, WALKS. LEARNING BARRIERS / SPECIAL NEEDS CHANGE FROM LAST VISIT?NO BARRIERS TO LEARNING?NO HEARING IMPAIRED?NO VISION IMPAIRED?NO COGNITIVELY IMPAIRED?NO READINESS TO LEARN?YES LEARNING PREFERENCES?NO LEARNING CAPABILITIES PRESENT?YES EMOTIONAL BARRIERS?NO SPECIAL DEVICES?NO CHILDREN'S LITERATURE PROFESSOR NEEDED?NO PAIN CLINIC PFS, CLERGY, PUBLIC HEALTH REFERRALS PFS REFERRAL NEEDED?NO CLERGY REFERRAL NEEDED?NO PUBLIC HEALTH REFERRAL NEEDED?NO WAS THE PROVIDER NOTIFIED OF ANY PERTINENT INFO?YES N/A HAS THE PATIENT BEEN EDUCATED REGARDING HIS/HER PLAN OF CARE?YES HAS THE PATIENT BEEN EDUCATED REGARDING PAIN, THE RISK FOR PAIN, THE IMPORTANCE OF EFFECTIVE PAIN MANAGEMENT, AND THE PAIN ASSESSMENT PROCESS?YES LATEX QUESTIONNAIRE LATEX ALLERGY : HAVE YOU EVER DEVELOPED ANY TYPE OF REACTION AFTER HANDLING LATEX PRODUCTS SUCH RUBBER GLOVES, CONDOMS, DIAPHRAGMS, BALLOONS, SOCKS, OR UNDERWEAR?NO LATEX ALLERGY : HAVE YOU EVER DEVELOPED ANY TYPE OF REACTION DURING OR AFTER DENTAL APPOINTMENT, VAGINAL/RECTAL EXAMINATION, SURGICAL PROCEDURE, OR ANY OTHER EXPOSURE?NO DATE ASKED : 01/17/2019 LATEX RISK : HAVE YOU EVER HAD ANY DIFFICULTY BREATHING OR HIVES AFTER EATING OR HANDLING ANY FRUITS, OR VEGETABLES; SUCH KIWI, BANANAS, STONE FRUITS, OR CHESTNUTSNO LATEX RISK : DO YOU HAVE A PREVIOUS PERSONAL HISTORY OF MORE THAN NINE SURGERIES, SPINA BIFIDA, OR REPEATED CATHERIZATIONS? NO LATEX RISK : ARE YOU FREQUENTLY EXPOSED TO LATEX PRODUCTS IN YOUR OCCUPATION?NO CAFFEINE CAFFEINE USE?YES HOW OFTEN AND HOW MUCH? 3 CUPS OF COFFEE PER DAY ADVANCE DIRECTIVE ADVANCE DIRECTIVE DISCUSSED WITH PATIENT:YES PT DOES NOT HAVE ANY ADVANCED DIRECTIVES AND SHE DECLINED ASSISTANCE OR INFORMATION ON HCP AT THIS TIME. GNOSTICIST [id number] NONE NO SCIENTOLOGY BELIEFS THAT WOULD IMPACT HEALTH CARE. MARITAL STATUS: .. ALCOHOL SCREENING DID YOU HAVE A DRINK CONTAINING ALCOHOL IN THE PAST YEAR?NO POINTS0 INTERPRETATIONNEGATIVE OCCUPATION: DISABLED. SEXUAL HX HAD SEX IN THE LAST 12 MONTHS (VAGINAL, ORAL, OR ANAL)?NO LMP:MIRENA HAVE YOU EVER HAD AN STD?YES OTHER?NO HERPES?YES SYPHILIS?NO GC?NO CHLAMYDIA?NO 04/06/18 RECVIEWED WITH PT. AD09/17/18 REVIEWED WITH PT RADHA. HOSPITALIZATION/MAJOR DIAGNOSTIC PROCEDURE RELATED TO SURGERIES REVIEW OF SYSTEMS REVIEWED BY: PROVIDER: DEVI REYNOLDS . CONSTITUTIONAL: ANY CHANGE IN YOUR MEDICAL CONDITION? YES, NECK AND RIGHT SHOULDER PAIN . CHILLS NO . FEVER NO . INFECTION: DO YOU HAVE NEW INFECTIONS? NO . DO YOU HAVE HISTORY OF MRSA? NO . MUSCULOSKELETAL: ANY NEW PATTERNS OF PAIN OR NUMBNESS? NO . GASTROENTEROLOGY: ANY NEW CHANGE IN BOWEL CONTROL? NO . GENITOURINARY: ANY NEW CHANGE IN BLADDER CONTROL? NO . IS THERE A CHANCE YOU COULD BE ? NO . HEMATOLOGY/LYMPH: DO YOU TAKE ANY BLOOD THINNERS? (FOR EXAMPLE- COUMADIN, PLAVIX, AGGRENOX, PLATEL, PRADAXA, OR XARELTO) NO . WHEN WAS YOUR LAST DOSE? DATE: TIME: . NEUROLOGY: HAVE YOU FALLEN IN THE PAST 12 MONTHS? NO . ANY NEW EXTREMITY NUMBNESS OR WEAKNESS? YES, BILAT ARMS . CARDIOLOGY: DO YOU HAVE A PACEMAKER OR DEFIBRILLATOR? NO . RESPIRATORY: HAVE YOU BEEN SICK IN THE PAST WEEK? NO . FEVER NO . FLU LIKE SYMPTOMS? NO . COUGH NO . INTEGUMENTARY: DO YOU HAVE ANY RASHES OR OPEN SORES? NO . ALLERGIC/IMMUNO: ARE YOU ALLERGIC TO IV DYE? NO . ANY NEW ALLERGIES? NO . PSYCHIATRIC: DO YOU HAVE THOUGHTS OF HURTING YOURSELF OR SOMEONE ELSE? NO . ARE YOU ABUSED, NEGLECTED, OR IN AN UNSAFE ENVIRONMENT? NO . ENDOCRINOLOGY: ARE YOU DIABETIC? NO . OTHER: DO YOU NEED ANY PRESCRIPTIONS? NO . IF YES, PLEASE LIST: ____ . ANY NEW PROBLEMS WITH YOUR MEDICATIONS? NO . WHEN DID YOU LAST EAT? ____ . WHEN DID YOU LAST DRINK? ____ . WHAT DID YOU LAST DRINK? ____ . NAME OF PERSON DRIVING YOU HOME? ____ . DO YOU HAVE ANY OTHER QUESTIONS OR CONCERNS NO . VITAL SIGNS WT 185.2 LBS, HT 60.5 IN, BMI 35.57 INDEX, BP 164/94 MM HG, HR 96 /MIN, RR 18 /MIN, TEMP 97 F,0 F, OXYGEN SAT % 96%, NA INITIALS AW 1326, REVIEWED BY: EM. EXAMINATION GENERAL EXAMINATION: GENERALAWAKE,ALERT ,PLEAASANT . PSYCHAFFECT NORMAL . LUNGS:LUNG LINDSEY ARE CLEAR TO AUSCULTATION BILATERALLY. GOOD MOVEMENT OF AIR . HEART:S1, S2 IN A REGULAR RATE AND RHYTHM. NO SIGNIFICANT MURMURS, RUBS OR GALLOPS NOTED . ASSESSMENTS POST LAMINECTOMY SYNDROME - M96.1 (PRIMARY) TREATMENT POST LAMINECTOMY SYNDROME INCREASE GABAPENTIN TABLET, 800 MG, 1 TABLET, ORALLY, THREE TIMES A DAY, 30 DAYS, 90 TABLET, REFILLS 2 REFILL HYDROCODONE-ACETAMINOPHEN TABLET, 7.5-325 MG, 1 TABLET NEEDED, ORALLY FOR PAIN, EVERY 12 HOURS NEEDED MDD2, 30 DAY(S), 60, REFILLS 0 REFILL OXYCODONE HCL ER TABLET ER 12 HOUR ABUSE-DETERRENT, 20 MG, 1 TABLET, ORALLY, EVERY 12 HRS MDD2, 30 DAYS, 60, REFILLS 0 CONTINUE TIZANIDINE HCL TABLET, 4 MG, 1 TABLET NEEDED, ORALLY, THREE TIMES A DAY NOTES: DUE TO POOR SLEEP DUE TO UNCONTROLLED PAIN I WILL BE INCREASING GABAPENTIN TO 800MG TID.ISTOP REGISTRY REVIEWED AND DEMONSTRATES COMPLLIANCE. BRINGS IN MEDICATIONS WHICH IS APPROPRIATE FOR WHAT WAS DISPENSED. RECENT URINE TOXICOLOGY REVIEWED. NO UNAUTHORIZED MEDICATIONS. NO ILLICIT SUBSTANCES AND PRESCRIBED MEDICATIONS WERE PRESENT. RISKS AND BENEFITS OF NARCOTIC/OPIOD MEDICATIONS WERE REVIEWED WITH PATIENT - THIS INCLUDES BUT IS NOT LIMITED TO RISK OF DEPENDANCE/DEVELOPMENT OF ADDICTION, MOOD DISTURBANCE AND DEPRESSION, OSTEOPOROSIS, HORMONAL AND LABIDAL CHANGES, RESPIRATORY DEPRESSION AND . PATIENT IS ADVISED NOT TO DRIVE OR DRINK ALCOHOL WHILE ON THESE MEDICATIONS, . PROCEDURES PN WORKMANS' COMP OPINION IN YOUR OPINION, WAS THE INCIDENT THAT THE PATIENT DESCRIBED THE COMPETENT MEDICAL CAUSE OF THIS INJURY/ILLNESS? YES ARE THE PATIENT'S COMPLAINTS CONSISTENT WITH HIS/HER HISTORY OF THE INJURY/ILLNESS? YES IS THE PATIENT'S HISTORY OF THE INJURY/ILLNESS CONSISTENT WITH YOUR OBJECTIVE FINDING? YES WHAT IS THE PERCENTAGE OF TEMPORARY IMPAIRMENT? MODERATE TO MARKED = 66.7% IS THE PATIENT WORKING? YES DOCTOR ON SITE: LAVERN LACY MD PROCEDURE CODES [id number] ESTABILISHED [facility]POS[facility] & COMMUNICATION FOLLOW UP 2 MONTHS (REASON: MED MGMNT) ELECTRONICALLY SIGNED BY GAIL KEATING ON 02/15/2019 AT 03:31 PM EDT DISCLAIMER : THIS IS A VISIT SUMMARY EXTRACTED FROM THE [employer] CHART. IT IS NOT A COPY OF THE [employer] PROGRESS NOTE. SANJIV
== END ==
LOC: M PAIN 13:15
PROVIDERS: ATTEND Nurse Practitioner Family
DX: M96.1 Postlaminectomy syndrome, not elsewhere classified (principal); Z86.59 Personal history of other mental and behavioral disorders; K21.9 Gastro-esophageal reflux disease without esophagitis; E78.5 Hyperlipidemia, unspecified; Z88.8 Allergy status to other drugs, medicaments and biological substances; Z79.891 Long term (current) use of opiate analgesic; Z79.899 Other long term (current) drug therapy

== ENCOUNTER → 2019-04-11 | Outpatient (REF) | payer OTHER, MEDICARE ==
[2019-04-11 13:35] LABS: ALBUMIN 4.2 GM/DL (3.2-5.2); ALT/SGPT 47 U/L (12-78); BILIRUBIN,TOTAL 0.4 MG/DL (0.2-1.0); BLOOD UREA NITROGEN 10 MG/DL (7-18); CALCIUM LEVEL 9.4 MG/DL (8.5-10.1); CARBON DIOXIDE LEVEL 33 MEQ/L (21-32); CHLORIDE LEVEL 105 MEQ/L (98-107); CHOLESTEROL LEVEL 232 MG/DL (<200); CHOLESTEROL RISK RATIO 4.734 (<5); CREATININE FOR GFR 0.81 MG/DL (0.55-1.30); GLOMERULAR FILTRATION RATE > 60.0 (>51); GLUCOSE, FASTING 82 MG/DL (70-100); HDL CHOLESTEROL 49 MG/DL (>40); LDL CHOLESTEROL 130 MG/DL (<100); NON-HDL-C 183 MG/DL; POTASSIUM SERUM 4.4 MEQ/L (3.5-5.1); SODIUM LEVEL 142 MEQ/L (136-145); TOTAL PROTEIN 7.3 GM/DL (6.4-8.2); TRIGLYCERIDES LEVEL 266 MG/DL (<150)
[2019-04-11 13:42] LABS: TOTAL 25(OH) VITAMIN D 38.9 NG/ML (30.0-100.0)
== END ==
LOC: M SFHCADAM 11:26
PROVIDERS: ATTEND Nurse Practitioner Family
DX: M47.22 Other spondylosis with radiculopathy, cervical region (principal); E78.2 Mixed hyperlipidemia; E55.9 Vitamin D deficiency, unspecified

== ENCOUNTER → 2019-05-06 | Outpatient (CLI) | payer OTHER, MEDICARE ==
--- NOTE | 2019-05-21 03:43 | ECWPNPC ---
PATIENT NAME: SAFIA GARCIA : 1970 GENDER: FEMALE VISIT DATE: 05/06/2019 DISCHARGE DATE: 05/06/19 1344 VISIT LOCKED DATE TIME: PHYSICIAN: DEVI ADAMS RESOURCE: DEVI ADAMS REASON FOR APPOINTMENT 1. W/C MEDS HISTORY OF PRESENT ILLNESS HISTORY OF PRESENT ILLNESS: PAIN THE PATIENT DESCRIBES THE PAIN... THE PATIENT DESCRIBES THE PAIN... THE PATIENT DESCRIBES THE PAIN... THE PATIENT DESCRIBES THE PAIN... THE PATIENT DESCRIBES THE PAIN... THE PATIENT DESCRIBES THE PAIN... THE PATIENT DESCRIBES THE PAIN... THE PATIENT DESCRIBES THE PAIN... THE PATIENT DESCRIBES THE PAIN... THE PATIENT DESCRIBES THE PAIN... THE PATIENT DESCRIBES THE PAIN... THE PATIENT DESCRIBES THE PAIN... THE PATIENT DESCRIBES THE PAIN... THE PATIENT DESCRIBES THE PAIN... THE PATIENT DESCRIBES THE PAIN... HERE FOR F/U OF CHRONIC LBP AND BILAT. LEG PAIN .THIS IS CHRONIC PAIN RELATED TO WORK RELATED INJURY DOI 2001.HX OF 2 LUMBAR SURGERIES 2001 AND 2002.CURRENT MEDICATIONS FOR WORK RELATED INJURY:OXYCONTIN 20MG BID,[id number] BID,HYDROCODONE 7.5/325 Q6H PRN ,TIZANIDINE 4MG TID,MELOXICAM 15MG QD,COLACE 200MG QD AND NEURONTIN 800MG TID .PAIN SCORES RANGE 7-8/10 VAS. FALL RISK SCREENING: SCREENING :NO FALLS REPORTED IN THE LAST YEAR CURRENT MEDICATIONS TAKING CALCIUM 600 + D 600-400 MG-UNIT TABLET 1 TABLET ORALLY ONCE A DAY TAKING SALINE NASAL SPRAY 0.65 % SOLUTION 2 SPRAYS IN EACH NOSTRIL NEEDED NASALLY EVERY 4 HRS NEEDED TAKING MAGNESIUM OXIDE 500 MG TABLET 1 TABLET WITH MEAL ORALLY DAILY TAKING VITAMIN C 500 MG TABLET CHEWABLE 1 TAB ORALLY ONCE A DAY TAKING MULTI-VITAMIN 1 TABLET 1 TAB ORALLY ONCE A DAY TAKING FISH OIL 1000 MG CAPSULE 1 CAP ORALLY TWICE A DAY TAKING MIRENA 20 MCG/24HR INTRAUTERINE DEVICE 1 DEVICE WTW INTRAUTERINE PLACED 12/2013, NOTES: WTW TAKING VALACYCLOVIR HCL 1 GM TABLET 1 TAB ORALLY EVERY 24 HRS NEEDED TAKING VALERIAN 250 MG CAPSULE 1-2 CAPSULE BEFORE BEDTIME NEEDED ORALLY ONCE A DAY TAKING MELATONIN 300 MCG TABLET 1 TABLET AT BEDTIME NEEDED WITH FOOD ORALLY ONCE A DAY TAKING MOTRIN 200 MGS 1 TAB ORALLY NEEDED TAKING KETOCONAZOLE 2 % CREAM 1 APPLICATION TO AFFECTED AREAS ON BODY EXTERNALLY TWICE A DAY TAKING COLACE 100 MG CAPSULE 2 CAP(S) ORALLY ONCE A DAY NEEDED FOR CONSTIPATION TAKING CYMBALTA 60 MG CAPSULE DELAYED RELEASE PARTICLES 1 CAP PAIN CLINIC ORALLY DAILY TAKING MELOXICAM 15 MG TABLET 1 TABLET ORALLY ONCE A DAY TAKING GABAPENTIN 800 MG TABLET 1 TABLET ORALLY THREE TIMES A DAY TAKING TIZANIDINE HCL 4 MG TABLET 1 TABLET NEEDED ORALLY THREE TIMES A DAY TAKING OXYCODONE HCL ER 20 MG TABLET ER 12 HOUR ABUSE-DETERRENT 1 TABLET ORALLY EVERY 12 HRS MDD2 TAKING HYDROCODONE-ACETAMINOPHEN 7.5-325 MG TABLET 1 TABLET NEEDED ORALLY FOR PAIN EVERY 12 HOURS NEEDED MDD2 TAKING HUMIRA PEN 40 MG/0.4ML PEN-INJECTOR KIT CF SUBCUTANEOUS EVERY OTHER WEEK TAKING ZYRTEC ALLERGY 10 MG TABLET 1 TABLET ORALLY ONCE A DAY TAKING AZELASTINE HCL 0.1 % SOLUTION 1 PUFF IN EACH NOSTRIL NASALLY TWICE A DAY TAKING VITAMIN D-3 1000 UNIT CAPSULE 4 CAPS WITH FOOD ORALLY ONCE A DAY TAKING PRAVASTATIN SODIUM 80 MG TABLET 1 TABLET ORALLY ONCE A DAY TAKING PANTOPRAZOLE SODIUM 40 MG TABLET DELAYED RELEASE 1 TABLET ORALLY ONCE A DAY TAKING BUPROPION HCL ER (XL) 300 MG TABLET EXTENDED RELEASE 24 HOUR 1 TABLET IN THE MORNING ORALLY ONCE A DAY NOT-TAKING LIDODERM 5 % PATCH 2-3 EXTERNALLY ONCE A DAY MEDICATION LIST REVIEWED AND RECONCILED WITH THE PATIENT PAST MEDICAL HISTORY DEPRESSION REFLUX SEASONAL AND ENVIRONMENTAL ALLERGIES HYPERLIPIDEMIA ASCVD RISK 4.3% ON 07/2018 REMOTE HX DYSPLASIA CHRONIC BACK AND NECK PROBLEMS - [facility], PAIN CLINIC EDEMA PSORIATIC ARTHRITIS COLOGUARD SCREEN 12/2018 - NEGATIVE NECK AND SHOULDER PAIN ALLERGIES FLEXERIL: HIVES - ALLERGY CELEBREX: RASH - ALLERGY LYRICA: RASH,FACE SWELLING - ALLERGY SURGICAL HISTORY BREAST REDUCTION APPENDECTOMY D&C ROTATOR CUFF TEAR REPAIR-RIGHT BACK SURGERY-FUSION L4-L5 X 2 LASER SURGERY FOR DYSPLASIA SINUS SURGERY X2 COLPOSCOPY WITH ELLE 10/03/2016 FAMILY HISTORY FATHER: 58 YRS, OF [place], DIAGNOSED WITH UNSPECIFIED HEART DISEASE MOTHER: ALIVE 74 YRS, HYPERLIPIDEMIA, SMOKER SIBLINGS: BROTHER - [place] AT 48, SIS - HYPERLIPIDEMIA, UNSPECIFIED HEART DISEASE SON(S): ADHD, OCD,ANXIETY, ASPERGERS 1 BROTHER(S) , 2 SISTER(S) . 2 SON(S) . 2 M. UNCLES WITH PANCREATIC CA, DECEASEDM. AUNT WITH BR CA DX UNDER AGE OF 30. SOCIAL HISTORY GENERAL: TOBACCO USE ARE YOU A:NONSMOKER NEVER SMOKER HIV / HEP-C SCREENING HIV TEST OFFERED TO PATIENT:YES DATE OFFERED:07/27/2016 TEST ACCEPTED:NO HEP-C TEST OFFERED TO PATIENT:YES DATE OFFERED:07/27/2016 REASON:PATIENT DECLINED TEST ACCEPTED:NO REASON:PATIENT DECLINED BROCHURE PROVIDED TO PATIENTYES OTHERS AT HOME: SON. EDUCATION LEVEL OF EDUCATION:FINISHED COLLEGE DIET: REGULAR. LANGUAGE LANGUAGES SPOKEN:ARABIC DOMESTIC VIOLENCE DO YOU FEEL SAFE IN YOUR ENVIRONMENT?YES NEW PATIENT PAIN DIARY TODAY'S VISITNOTES RECREATIONAL DRUG USE DRUG USE?NO EXERCISE: DAILY, WALKS. LEARNING BARRIERS / SPECIAL NEEDS CHANGE FROM LAST VISIT?NO BARRIERS TO LEARNING?NO HEARING IMPAIRED?NO VISION IMPAIRED?NO COGNITIVELY IMPAIRED?NO READINESS TO LEARN?YES LEARNING PREFERENCES?NO LEARNING CAPABILITIES PRESENT?YES EMOTIONAL BARRIERS?NO SPECIAL DEVICES?NO SPEECH PATHOLOGIST NEEDED?NO PAIN CLINIC PFS, CLERGY, PUBLIC HEALTH REFERRALS PFS REFERRAL NEEDED?NO CLERGY REFERRAL NEEDED?NO PUBLIC HEALTH REFERRAL NEEDED?NO WAS THE PROVIDER NOTIFIED OF ANY PERTINENT INFO?YES N/A HAS THE PATIENT BEEN EDUCATED REGARDING HIS/HER PLAN OF CARE?YES HAS THE PATIENT BEEN EDUCATED REGARDING PAIN, THE RISK FOR PAIN, THE IMPORTANCE OF EFFECTIVE PAIN MANAGEMENT, AND THE PAIN ASSESSMENT PROCESS?YES LATEX QUESTIONNAIRE LATEX ALLERGY : HAVE YOU EVER DEVELOPED ANY TYPE OF REACTION AFTER HANDLING LATEX PRODUCTS SUCH RUBBER GLOVES, CONDOMS, DIAPHRAGMS, BALLOONS, SOCKS, OR UNDERWEAR?NO LATEX ALLERGY : HAVE YOU EVER DEVELOPED ANY TYPE OF REACTION DURING OR AFTER DENTAL APPOINTMENT, VAGINAL/RECTAL EXAMINATION, SURGICAL PROCEDURE, OR ANY OTHER EXPOSURE?NO LATEX RISK : HAVE YOU EVER HAD ANY DIFFICULTY BREATHING OR HIVES AFTER EATING OR HANDLING ANY FRUITS, OR VEGETABLES; SUCH KIWI, BANANAS, STONE FRUITS, OR CHESTNUTSNO LATEX RISK : DO YOU HAVE A PREVIOUS PERSONAL HISTORY OF MORE THAN NINE SURGERIES, SPINA BIFIDA, OR REPEATED CATHERIZATIONS? NO LATEX RISK : ARE YOU FREQUENTLY EXPOSED TO LATEX PRODUCTS IN YOUR OCCUPATION?NO DATE ASKED : 01/17/2019 CAFFEINE CAFFEINE USE?YES HOW OFTEN AND HOW MUCH? 3 CUPS OF COFFEE PER DAY ADVANCE DIRECTIVE ADVANCE DIRECTIVE DISCUSSED WITH PATIENT:YES PT DOES NOT HAVE ANY ADVANCED DIRECTIVES AND SHE DECLINED ASSISTANCE OR INFORMATION ON HCP AT THIS TIME. PROTESTANT [id number] NONE NO JAIN BELIEFS THAT WOULD IMPACT HEALTH CARE. MARITAL STATUS: .. ALCOHOL SCREENING DID YOU HAVE A DRINK CONTAINING ALCOHOL IN THE PAST YEAR?NO POINTS0 INTERPRETATIONNEGATIVE OCCUPATION: DISABLED. SEXUAL HX HAD SEX IN THE LAST 12 MONTHS (VAGINAL, ORAL, OR ANAL)?NO LMP:MIRENA HAVE YOU EVER HAD AN STD?YES OTHER?NO HERPES?YES SYPHILIS?NO GC?NO CHLAMYDIA?NO 04/06/18 RECVIEWED WITH PT. AD09/17/18 REVIEWED WITH PT LASREVIEWED WITH PATIENT 05/06/19 1316 JS. HOSPITALIZATION/MAJOR DIAGNOSTIC PROCEDURE RELATED TO SURGERIES REVIEW OF SYSTEMS REVIEWED BY: PROVIDER: DEVI REYNOLDS . CONSTITUTIONAL: ANY CHANGE IN YOUR MEDICAL CONDITION? NO . CHILLS NO . FEVER NO . INFECTION: DO YOU HAVE NEW INFECTIONS? NO . DO YOU HAVE HISTORY OF MRSA? NO . MUSCULOSKELETAL: ANY NEW PATTERNS OF PAIN OR NUMBNESS? YES, STATES PAIN AND NUMBNESS TO BILATERAL LEGS. ALSO STATES HER LEGS GET REALLY COLD EASILY . GASTROENTEROLOGY: ANY NEW CHANGE IN BOWEL CONTROL? NO . GENITOURINARY: ANY NEW CHANGE IN BLADDER CONTROL? NO . IS THERE A CHANCE YOU COULD BE ? NO . HEMATOLOGY/LYMPH: DO YOU TAKE ANY BLOOD THINNERS? (FOR EXAMPLE- COUMADIN, PLAVIX, AGGRENOX, PLATEL, PRADAXA, OR XARELTO) NO . WHEN WAS YOUR LAST DOSE? DATE: TIME: . NEUROLOGY: HAVE YOU FALLEN IN THE PAST 12 MONTHS? NO . ANY NEW EXTREMITY NUMBNESS OR WEAKNESS? NO . CARDIOLOGY: DO YOU HAVE A PACEMAKER OR DEFIBRILLATOR? NO . RESPIRATORY: HAVE YOU BEEN SICK IN THE PAST WEEK? NO . FEVER NO . FLU LIKE SYMPTOMS? NO . COUGH NO . INTEGUMENTARY: DO YOU HAVE ANY RASHES OR OPEN SORES? NO . ALLERGIC/IMMUNO: ARE YOU ALLERGIC TO IV DYE? NO . ANY NEW ALLERGIES? NO . PSYCHIATRIC: DO YOU HAVE THOUGHTS OF HURTING YOURSELF OR SOMEONE ELSE? NO . ARE YOU ABUSED, NEGLECTED, OR IN AN UNSAFE ENVIRONMENT? NO . ENDOCRINOLOGY: ARE YOU DIABETIC? NO . OTHER: DO YOU NEED ANY PRESCRIPTIONS? NO . IF YES, PLEASE LIST: ____ . ANY NEW PROBLEMS WITH YOUR MEDICATIONS? NO . WHEN DID YOU LAST EAT? ____ . WHEN DID YOU LAST DRINK? ____ . WHAT DID YOU LAST DRINK? ____ . NAME OF PERSON DRIVING YOU HOME? ____ . DO YOU HAVE ANY OTHER QUESTIONS OR CONCERNS FLU VACCINE TO BE DONE SOON . VITAL SIGNS WT 187.0 LBS, HT 60.5 IN, BMI 35.92 INDEX, BP 140/80 MM HG, HR 84 /MIN, RR 18 /MIN, TEMP 97.0 F, OXYGEN SAT % 99%, SAFE IN ENV? (Y/N) YES, REVIEWED BY: LEON. EXAMINATION GENERAL EXAMINATION: GENERALAWAKE,ALERT ,PLEAASANT . PSYCHAFFECT NORMAL . LUNGS:LUNG LINDSEY ARE CLEAR TO AUSCULTATION BILATERALLY. GOOD MOVEMENT OF AIR . HEART:S1, S2 IN A REGULAR RATE AND RHYTHM. NO SIGNIFICANT MURMURS, RUBS OR GALLOPS NOTED . ASSESSMENTS POST LAMINECTOMY SYNDROME - M96.1 (PRIMARY) TREATMENT POST LAMINECTOMY SYNDROME CONTINUE COLACE CAPSULE, 100 MG, 2 CAP(S), ORALLY, ONCE A DAY NEEDED FOR CONSTIPATION CONTINUE CYMBALTA CAPSULE DELAYED RELEASE PARTICLES, 60 MG, 1 CAP PAIN CLINIC, ORALLY, DAILY CONTINUE MELOXICAM TABLET, 15 MG, 1 TABLET, ORALLY, ONCE A DAY CONTINUE GABAPENTIN TABLET, 800 MG, 1 TABLET, ORALLY, THREE TIMES A DAY CONTINUE TIZANIDINE HCL TABLET, 4 MG, 1 TABLET NEEDED, ORALLY, THREE TIMES A DAY REFILL OXYCODONE HCL ER TABLET ER 12 HOUR ABUSE-DETERRENT, 20 MG, 1 TABLET, ORALLY, EVERY 12 HRS MDD2, 30 DAYS, 60, REFILLS 0 REFILL HYDROCODONE-ACETAMINOPHEN TABLET, 7.5-325 MG, 1 TABLET NEEDED, ORALLY FOR PAIN, EVERY 12 HOURS NEEDED MDD2, 30 DAY(S), 60, REFILLS 0 NOTES: ISTOP REGISTRY REVIEWED AND DEMONSTRATES COMPLLIANCE. BRINGS IN MEDICATIONS WHICH IS APPROPRIATE FOR WHAT WAS DISPENSED. RECENT URINE TOXICOLOGY REVIEWED. NO UNAUTHORIZED MEDICATIONS. NO ILLICIT SUBSTANCES AND PRESCRIBED MEDICATIONS WERE PRESENT. URINE TOX TODAY, RISKS OF NARCOTIC/OPIOD MEDICATIONS INCLUDES BUT IS NOT LIMITED TO RISK OF DEPENDANCE/DEVELOPMENT OF ADDICTION, MOOD DISTURBANCE AND DEPRESSION, OSTEOPOROSIS, HORMONAL AND LABIDAL CHANGES, RESPIRATORY DEPRESSION AND . PATIENT IS ADVISED NOT TO DRIVE OR DRINK ALCOHOL WHILE ON THESE MEDICATIONSREFER TO FRANNY SIMMONS AT [facility] FOR CHRONIC MEDICATION MANAGEMENT FOR WORKMANS COMPENSATION. PROCEDURES PN WORKMANS' COMP OPINION IN YOUR OPINION, WAS THE INCIDENT THAT THE PATIENT DESCRIBED THE COMPETENT MEDICAL CAUSE OF THIS INJURY/ILLNESS? YES ARE THE PATIENT'S COMPLAINTS CONSISTENT WITH HIS/HER HISTORY OF THE INJURY/ILLNESS? YES IS THE PATIENT'S HISTORY OF THE INJURY/ILLNESS CONSISTENT WITH YOUR OBJECTIVE FINDING? YES WHAT IS THE PERCENTAGE OF TEMPORARY IMPAIRMENT? MODERATE TO MARKED = 66.7% IS THE PATIENT WORKING? NO DOCTOR ON SITE: LAVERN LACY MD PROCEDURE CODES FA211 ESTABILISHED PATIENT [facility] FACILITY CHARGE DISPOSITION & COMMUNICATION FOLLOW UP REFER TO FRANNY GARZA MGMNT ELECTRONICALLY SIGNED BY GAIL KEATING ON 05/20/2019 AT 03:56 PM EST DISCLAIMER : THIS IS A VISIT SUMMARY EXTRACTED FROM THE ECLINICALOutcome Referrals CHART. IT IS NOT A COPY OF THE [facility] [employer] PROGRESS NOTE. SANJIV
== END ==
LOC: M PAIN 13:00
PROVIDERS: ATTEND Nurse Practitioner Family
DX: M96.1 Postlaminectomy syndrome, not elsewhere classified (principal); Z79.891 Long term (current) use of opiate analgesic; Z79.899 Other long term (current) drug therapy; Z88.8 Allergy status to other drugs, medicaments and biological substances

== ENCOUNTER → 2019-08-21 | Outpatient (REF) | payer OTHER, MEDICARE ==
[2019-08-21 13:37] LABS: ALBUMIN 3.9 GM/DL (3.2-5.2); ALT/SGPT 43 U/L (12-78); BILIRUBIN,TOTAL 0.6 MG/DL (0.2-1.0); BLOOD UREA NITROGEN 12 MG/DL (7-18); CALCIUM LEVEL 9.2 MG/DL (8.5-10.1); CARBON DIOXIDE LEVEL 32 MEQ/L (21-32); CHLORIDE LEVEL 105 MEQ/L (98-107); CHOLESTEROL LEVEL 212 MG/DL (<200); CREATININE FOR GFR 0.78 MG/DL (0.55-1.30); GLOMERULAR FILTRATION RATE > 60.0 (>51); GLUCOSE, FASTING 90 MG/DL (70-100); HDL CHOLESTEROL 53 MG/DL (>40); LDL CHOLESTEROL 133 MG/DL (<100); NON-HDL-C 159 MG/DL; POTASSIUM SERUM 3.6 MEQ/L (3.5-5.1); SODIUM LEVEL 141 MEQ/L (136-145); TOTAL PROTEIN 6.7 GM/DL (6.4-8.2); TRIGLYCERIDES LEVEL 130 MG/DL (<150)
== END ==
LOC: M LABDRWAD 12:52
PROVIDERS: ATTEND Nurse Practitioner Family
DX: E78.2 Mixed hyperlipidemia (principal)

== ENCOUNTER → 2019-11-29 | Outpatient (REF) | payer MEDICARE ==
[2019-11-29 18:23] LABS: BASO # 0.1 10^3/uL (0.0-0.2); BASO % 0.7 % (0.0-1.0); EOS # 0.2 10^3/uL (0.0-0.5); EOS % 2.3 % (0.0-3.0); HEMATOCRIT 42.5 % (36.0-47.0); HEMOGLOBIN 13.7 g/dl (12.0-15.5); LYMPH # 2.3 10^3/uL (1.5-5.0); LYMPH % 30.7 % (24.0-44.0); MEAN CORPUSCULAR HGB CONC 32.2 g/dl (32.0-36.5); MEAN CORPUSCULAR VOLUME 93.2 fl (80.0-96.0); MONO # 0.9 10^3/uL (0.0-0.8); MONO % 11.7 % (0.0-5.0); NEUTROPHILS % 54.1 % (36.0-66.0); PLATELET COUNT, AUTOMATED 282 10^3/uL (150-450); RED BLOOD COUNT 4.56 10^6/uL (4.00-5.40); WHITE BLOOD COUNT 7.3 10^3/uL (4.0-10.0)
[2019-11-29 18:48] LABS: ALBUMIN 3.7 GM/DL (3.2-5.2); ALT/SGPT 34 U/L (12-78); BILIRUBIN,DIRECT 0.1 MG/DL (0.0-0.2); BILIRUBIN,TOTAL 0.5 MG/DL (0.2-1.0); BLOOD UREA NITROGEN 13 MG/DL (7-18); CARBON DIOXIDE LEVEL 30 MEQ/L (21-32); CHLORIDE LEVEL 105 MEQ/L (98-107); CREATININE FOR GFR 0.73 MG/DL (0.55-1.30); GLOMERULAR FILTRATION RATE > 60.0 (>51); GLUCOSE, FASTING 83 MG/DL (70-100); PHOSPHORUS LEVEL 3.3 MG/DL (2.5-4.9); POTASSIUM SERUM 4.9 MEQ/L (3.5-5.1); SODIUM LEVEL 142 MEQ/L (136-145); TOTAL PROTEIN 6.7 GM/DL (6.4-8.2)
== END ==
LOC: M LABDRWAD 17:13
PROVIDERS: ATTEND Nurse Practitioner
DX: L40.0 Psoriasis vulgaris (principal); Z51.81 Encounter for therapeutic drug level monitoring

== ENCOUNTER → 2020-01-21 | Outpatient (CLI) | payer MEDICARE ==
--- NOTE | 2020-01-21 16:35 | REPMRS ---
Patient History The patient states she had a clinical breast exam in January 2020.Family history of breast cancer under age 50 in maternal aunt, colorectal cancer in paternal grandmother, prostate cancer at age 50 or over in maternal uncle, prostate cancer at age 50 or over in maternal uncle. Reductions of both breasts, 2004. Taking hormonal contraceptives for 11 years. Digital Woman Screen Mammo: January 21, 2020 - Exam #: [id number] Bilateral CC and MLO view(s) were taken. Technologist: Merry Elias, Technologist Prior study comparison: January 17, 2019, bilateral digital woman screen mammo performed at [facility]. January 16, 2018, bilateral digital woman screen mammo performed at [facility]. September 07, 2016, digital woman screen mammo performed at [facility]. FINDINGS: There are scattered fibroglandular densities. The Volpara volumetric breast density category is:B. There has been no change in the appearance of the mammogram from the prior studies. There is a mild amount of scattered fibroglandular density which is fairly symmetric. There is no interval development of dominant mass, architectural distortion, or grouped microcalcification suggestive of malignancy. 3-D tomosynthesis shows no additional findings. Assessment: BI-RADS/ACR category 1 mammogram. Negative Mammogram. Recommendation Routine screening mammogram of both breasts in 1 year (for women over age 40). This patient's Lifetime Breast Cancer Risk is estimated at 11.2 %. This mammogram was interpreted with the aid of an FDA-approved computer-aided dectection system. Electronically Signed By: Juanpablo Alvarado MD 01/21/20 [id number]
== END ==
LOC: M WHC 14:47
PROVIDERS: ATTEND Nurse Practitioner Women's Health
DX: Z12.31 Encounter for screening mammogram for malignant neoplasm of breast (principal); Z98.890 Other specified postprocedural states; Z92.0 Personal history of contraception

== ENCOUNTER → 2020-01-21 | Outpatient (REF) | payer MEDICARE | LOC: M SFHCWAGY 09:02 | PROVIDERS: ATTEND Nurse Practitioner Women's Health | DX: Z12.4 Encounter for screening for malignant neoplasm of cervix (principal); R87.610 Atypical squamous cells of undetermined significance on cytologic smear of cervix (ASC-US); R87.810 Cervical high risk human papillomavirus (HPV) DNA test positive ==

== ENCOUNTER → 2020-08-10 | Outpatient (REF) | payer MEDICARE ==
[2020-08-10 19:10] LABS: ALBUMIN 3.9 GM/DL (3.2-5.2); ALT/SGPT 30 U/L (12-78); BILIRUBIN,TOTAL 0.4 MG/DL (0.2-1.0); BLOOD UREA NITROGEN 12 MG/DL (7-18); CALCIUM LEVEL 9.4 MG/DL (8.5-10.1); CARBON DIOXIDE LEVEL 32 MEQ/L (21-32); CHLORIDE LEVEL 106 MEQ/L (98-107); CHOLESTEROL LEVEL 192 MG/DL (<200); CHOLESTEROL RISK RATIO 3.555 (<5); CREATININE FOR GFR 0.78 MG/DL (0.55-1.30); GLOMERULAR FILTRATION RATE > 60.0 (>51); GLUCOSE, FASTING 89 MG/DL (70-100); HDL CHOLESTEROL 54 MG/DL (>40); LDL CHOLESTEROL 112 MG/DL (<100); NON-HDL-C 138 MG/DL; POTASSIUM SERUM 4.3 MEQ/L (3.5-5.1); SODIUM LEVEL 143 MEQ/L (136-145); TOTAL PROTEIN 6.9 GM/DL (6.4-8.2); TRIGLYCERIDES LEVEL 128 MG/DL (<150)
== END ==
LOC: M SFHCADAM 14:22
PROVIDERS: ATTEND Nurse Practitioner Family
DX: E78.2 Mixed hyperlipidemia (principal); E55.9 Vitamin D deficiency, unspecified

== ENCOUNTER → 2021-01-28 | Outpatient (REF) | payer MEDICARE, OTHER ==
[~2021-01-28] MED LIST changes: +OMEP20TA2 PO; -OMEP20TA9 PO
[2021-01-28 16:45] LABS: ALBUMIN 3.9 GM/DL (3.2-5.2); ALT/SGPT 36 U/L (12-78); BILIRUBIN,TOTAL 0.4 MG/DL (0.2-1.0); BLOOD UREA NITROGEN 15 MG/DL (7-18); CALCIUM LEVEL 9.3 MG/DL (8.5-10.1); CARBON DIOXIDE LEVEL 33 MEQ/L (21-32); CHLORIDE LEVEL 108 MEQ/L (98-107); GLOMERULAR FILTRATION RATE > 60.0 (>51); GLUCOSE, FASTING 90 MG/DL (70-100); MAGNESIUM LEVEL 2.2 MG/DL (1.8-2.4); POTASSIUM SERUM 4.1 MEQ/L (3.5-5.1); SODIUM LEVEL 142 MEQ/L (136-145); TOTAL PROTEIN 7.1 GM/DL (6.4-8.2)
[2021-01-28 16:55] LABS: TOTAL 25(OH) VITAMIN D 46.8 NG/ML (30.0-100.0); VITAMIN B12 LEVEL 1245 PG/ML
[2021-01-28 16:56] LABS: FOLATE > 24.0 NG/ML
== END ==
LOC: M SFHCADAM 13:30
PROVIDERS: ATTEND Nurse Practitioner Family
DX: E78.2 Mixed hyperlipidemia (principal); K21.9 Gastro-esophageal reflux disease without esophagitis; E55.9 Vitamin D deficiency, unspecified

== ENCOUNTER → 2021-05-21 | Outpatient (CLI) | payer OTHER, MEDICARE ==
--- NOTE | 2021-05-21 15:23 | REP ---
INDICATION: POSTLAMINECTOMY SYNDROME, NOT ELSEWHERE CLASSIFIED COMPARISON: None. TECHNIQUE: AP, lateral, bilateral oblique, and coned-down views of the lumbar spine. FINDINGS: Patient is noted to be status post laminectomy and posterior fixation at the L5-S1 level with prosthetic disc. Lateral view demonstrates normal alignment and lordosis from the T10 through L4 level with subsequent grade 2 anterolisthesis at the L4-5 level of approximately 12 mm. There is no evidence for acute fracture/compression injury. IMPRESSION: 1. Grade 2 anterolisthesis at the L4-5 level with endplate sclerosis and disc space narrowing. 2. Prior laminectomy and posterior fixation at the L5-S1 level. <Electronically signed by Chinmay Aguayo > 05/21/21 [id number]
== END ==
LOC: M PLAIMG 14:50
PROVIDERS: ATTEND Physician Assistant
DX: M96.1 Postlaminectomy syndrome, not elsewhere classified (principal)

== ENCOUNTER → 2021-06-03 | Outpatient (CLI) | payer MEDICARE, OTHER | LOC: M WHC 14:26 | PROVIDERS: ATTEND Nurse Practitioner Women's Health | DX: Z12.31 Encounter for screening mammogram for malignant neoplasm of breast (principal); Z98.890 Other specified postprocedural states; Z92.0 Personal history of contraception; R92.1 Mammographic calcification found on diagnostic imaging of breast ==

== ENCOUNTER → 2021-06-03 | Outpatient (REF) | payer MEDICARE | LOC: M SFHCWAGY 17:29 | PROVIDERS: ATTEND Nurse Practitioner Women's Health | DX: Z12.4 Encounter for screening for malignant neoplasm of cervix (principal) ==

== ENCOUNTER → 2021-07-01 | Outpatient (REF) | LOC: M LABSMTC 09:48 | PROVIDERS: ATTEND Pediatrics | DX: Z11.52 Encounter for screening for COVID-19 (principal) ==

== ENCOUNTER → 2022-01-12 | Outpatient (REF) | payer OTHER ==
[2022-01-12 13:27] LABS: BASO # 0.1 10^3/uL (0.0-0.2); BASO % 0.8 % (0.0-1.0); EOS # 0.3 10^3/uL (0.0-0.5); EOS % 4.3 % (0.0-3.0); HEMATOCRIT 44.1 % (36.0-47.0); HEMOGLOBIN 13.9 g/dl (12.0-15.5); LYMPH # 3.2 10^3/uL (1.5-5.0); LYMPH % 43.8 % (24.0-44.0); MEAN CORPUSCULAR HEMOGLOBIN 29.4 pg (27.0-33.0); MEAN CORPUSCULAR HGB CONC 31.5 g/dl (32.0-36.5); MEAN CORPUSCULAR VOLUME 93.2 fl (80.0-96.0); MONO # 0.8 10^3/uL (0.0-0.8); MONO % 11.6 % (2.0-8.0); NEUTROPHILS # 2.8 10^3/uL (1.5-8.5); NEUTROPHILS % 39.4 % (36.0-66.0); PLATELET COUNT, AUTOMATED 279 10^3/uL (150-450); RED BLOOD COUNT 4.73 10^6/uL (4.00-5.40); WHITE BLOOD COUNT 7.2 10^3/uL (4.0-10.0)
[2022-01-12 15:13] LABS: ALBUMIN 3.7 GM/DL (3.2-5.2); ALT/SGPT 39 U/L (12-78); BILIRUBIN,TOTAL 0.8 MG/DL (0.2-1.0); BLOOD UREA NITROGEN 13 MG/DL (7-18); CALCIUM LEVEL 9.1 MG/DL (8.5-10.1); CARBON DIOXIDE LEVEL 30 MEQ/L (21-32); CHLORIDE LEVEL 107 MEQ/L (98-107); CHOLESTEROL LEVEL 207 MG/DL (<200); CHOLESTEROL RISK RATIO 3.763 (<5); CREATININE FOR GFR 0.76 MG/DL (0.55-1.30); FREE T4 0.75 NG/DL (0.76-1.46); GLOMERULAR FILTRATION RATE > 60.0 (>51); GLUCOSE, FASTING 103 MG/DL (70-100); HDL CHOLESTEROL 55 MG/DL (>40); LDL CHOLESTEROL 100 MG/DL (<100); MAGNESIUM LEVEL 2.2 MG/DL (1.8-2.4); NON-HDL-C 152 MG/DL; POTASSIUM SERUM 4.2 MEQ/L (3.5-5.1); SODIUM LEVEL 140 MEQ/L (136-145); TOTAL PROTEIN 6.8 GM/DL (6.4-8.2); TRIGLYCERIDES LEVEL 259 MG/DL (<150)
[2022-01-12 16:07] LABS: TOTAL 25(OH) VITAMIN D 34.7 NG/ML (30.0-100.0)
[2022-01-12 21:07] LABS: HEMOGLOBIN A1c 5.1 %
== END ==
LOC: M SFHCADAM 09:19
PROVIDERS: ATTEND Nurse Practitioner Family
DX: E78.2 Mixed hyperlipidemia (principal); F32.2 Major depressive disorder, single episode, severe without psychotic features; E55.9 Vitamin D deficiency, unspecified; F41.9 Anxiety disorder, unspecified

== ENCOUNTER → 2022-01-18 | Outpatient (CLI) | payer OTHER ==
[2022-01-18 16:23] LABS: BASO % 0.6 % (0.0-1.0); EOS # 0.3 10^3/uL (0.0-0.5); EOS % 3.6 % (0.0-3.0); HEMATOCRIT 42.7 % (36.0-47.0); LYMPH # 2.4 10^3/uL (1.5-5.0); LYMPH % 35.2 % (24.0-44.0); MEAN CORPUSCULAR HEMOGLOBIN 30.5 pg (27.0-33.0); MEAN CORPUSCULAR HGB CONC 32.8 g/dl (32.0-36.5); MONO # 0.7 10^3/uL (0.0-0.8); MONO % 10.8 % (2.0-8.0); NEUTROPHILS # 3.4 10^3/uL (1.5-8.5); NEUTROPHILS % 49.4 % (36.0-66.0); PLATELET COUNT, AUTOMATED 308 10^3/uL (150-450); RED BLOOD COUNT 4.59 10^6/uL (4.00-5.40); WHITE BLOOD COUNT 6.9 10^3/uL (4.0-10.0)
[2022-01-18 17:35] LABS: ALBUMIN 3.6 GM/DL (3.2-5.2); ALT/SGPT 33 U/L (12-78); BILIRUBIN,TOTAL 0.6 MG/DL (0.2-1.0); BLOOD UREA NITROGEN 14 MG/DL (7-18); CALCIUM LEVEL 9.3 MG/DL (8.5-10.1); CARBON DIOXIDE LEVEL 32 MEQ/L (21-32); CHLORIDE LEVEL 105 MEQ/L (98-107); CREATININE FOR GFR 0.58 MG/DL (0.55-1.30); GLOMERULAR FILTRATION RATE > 60.0 (>51); GLUCOSE, FASTING 87 MG/DL (70-100); POTASSIUM SERUM 4.3 MEQ/L (3.5-5.1); SODIUM LEVEL 140 MEQ/L (136-145); TOTAL PROTEIN 6.9 GM/DL (6.4-8.2)
== END ==
LOC: M ADAMS 14:51
PROVIDERS: ATTEND Family Medicine
DX: M96.1 Postlaminectomy syndrome, not elsewhere classified (principal)

== ENCOUNTER → 2022-03-22 | Outpatient (REF) | payer OTHER, MEDICARE ==
[2022-03-22 17:23] LABS: BLOOD UREA NITROGEN 11 MG/DL (7-18); CREATININE FOR GFR 0.65 MG/DL (0.55-1.30); GLOMERULAR FILTRATION RATE > 60.0 (>51)
== END ==
LOC: M LABDRWAD 16:12
PROVIDERS: ATTEND Pain Medicine Interventional Pain Medicine
DX: M96.1 Postlaminectomy syndrome, not elsewhere classified (principal)

== ENCOUNTER → 2022-06-06 | Outpatient (CLI) | payer MEDICARE | LOC: M RAD 12:39 | PROVIDERS: ATTEND Nurse Practitioner Family | DX: I89.0 Lymphedema, not elsewhere classified (principal) ==

== ENCOUNTER → 2022-07-05 | Outpatient (REF) | payer MEDICARE ==
[2022-07-05 13:41] LABS: ALBUMIN 3.6 G/DL (3.2-5.2); ALKALINE PHOSPHATASE 56 U/L (46-116); ALT/SGPT 31 U/L (7.0-40); AST/SGOT 24 U/L (<34); BILIRUBIN,TOTAL 0.4 MG/DL (0.3-1.2); BLOOD UREA NITROGEN 16 MG/DL (9-23); CALCIUM LEVEL 9.1 MG/DL (8.5-10.1); CARBON DIOXIDE LEVEL 27 MMOL/L (20-31); CHLORIDE LEVEL 104 MMOL/L (98-107); CHOLESTEROL LEVEL 167 MG/DL (<200); CHOLESTEROL RISK RATIO 4.06 (<5); CREATININE FOR GFR 0.71 MG/DL (0.55-1.30); GLOMERULAR FILTRATION RATE > 60.0 (>51); GLUCOSE, FASTING 90 MG/DL (60-100); HDL CHOLESTEROL 41.1 MG/DL (>40); LDL CHOLESTEROL 89.3 MG/DL (<100); NON-HDL-C 126 MG/DL; POTASSIUM SERUM 4.4 MMOL/L (3.5-5.1); SODIUM LEVEL 142 MMOL/L (136-145); TOTAL PROTEIN 6.4 G/DL (5.7-8.2); TRIGLYCERIDES LEVEL 183 MG/DL (<150)
[2022-07-05 13:45] LABS: FREE T4 0.84 NG/DL (0.89-1.76); THYROID STIMULATING HORMONE 1.708 uIU/ML (0.55-4.78)
== END ==
LOC: M SFHCADAM 11:04
PROVIDERS: ATTEND Nurse Practitioner Family
DX: E78.2 Mixed hyperlipidemia (principal); R79.89 Other specified abnormal findings of blood chemistry

== ENCOUNTER → 2022-07-19 | Outpatient (REF) | payer MEDICARE | LOC: M SFHCPLAZ 16:48 → M LAB REF 16:48 | PROVIDERS: ATTEND Physician Assistant | DX: J02.9 Acute pharyngitis, unspecified (principal) ==

== ENCOUNTER → 2022-08-09 | Outpatient (CLI) | payer MEDICARE | LOC: M SLEEP HO 08-04 13:16 | PROVIDERS: ATTEND Nurse Practitioner Family | DX: G47.09 Other insomnia (principal); R53.83 Other fatigue ==

== ENCOUNTER → 2022-09-15 | Outpatient (CLI) | payer MEDICARE | LOC: M LABDRWAD 14:33 | PROVIDERS: ATTEND Nurse Practitioner Family | DX: J30.9 Allergic rhinitis, unspecified (principal) ==

== ENCOUNTER → 2022-10-24 | Outpatient (REF) | payer MEDICARE | LOC: M SFHCWAGY 15:17 | PROVIDERS: ATTEND Nurse Practitioner Family | DX: Z12.4 Encounter for screening for malignant neoplasm of cervix (principal) ==

== ENCOUNTER → 2022-10-24 | Outpatient (CLI) | payer MEDICARE | LOC: M WHC 13:02 | PROVIDERS: ATTEND Nurse Practitioner Family | DX: Z12.31 Encounter for screening mammogram for malignant neoplasm of breast (principal) ==

== ENCOUNTER → 2022-11-22 | Outpatient (CLI) | payer MEDICARE ==
[2022-11-22 15:11] LABS: BASO # 0.1 10^3/uL (0.0-0.2); BASO % 0.7 % (0.0-1.0); EOS # 0.2 10^3/uL (0.0-0.5); EOS % 3.3 % (0.0-3.0); HEMATOCRIT 41.5 % (36.0-47.0); HEMOGLOBIN 13.5 g/dl (12.0-15.5); LYMPH # 2.7 10^3/uL (1.5-5.0); LYMPH % 40.6 % (24.0-44.0); MEAN CORPUSCULAR HEMOGLOBIN 30.5 pg (27.0-33.0); MEAN CORPUSCULAR HGB CONC 32.5 g/dl (32.0-36.5); MEAN CORPUSCULAR VOLUME 93.9 fl (80.0-96.0); MONO # 0.8 10^3/uL (0.0-0.8); MONO % 11.2 % (2.0-8.0); NEUTROPHILS # 2.9 10^3/uL (1.5-8.5); NEUTROPHILS % 43.9 % (36.0-66.0); PLATELET COUNT, AUTOMATED 278 10^3/uL (150-450); RED BLOOD COUNT 4.42 10^6/uL (4.00-5.40); WHITE BLOOD COUNT 6.7 10^3/uL (4.0-10.0)
[2022-11-22 15:32] LABS: ALBUMIN 3.4 G/DL (3.2-5.2); ALKALINE PHOSPHATASE 46 U/L (46-116); ALT/SGPT 24 U/L (7.0-40); AST/SGOT 21 U/L (<34); BILIRUBIN,DIRECT 0.1 MG/DL (<0.4); BILIRUBIN,TOTAL 0.4 MG/DL (0.3-1.2); BLOOD UREA NITROGEN 16 MG/DL (9-23); CALCIUM LEVEL 8.9 MG/DL (8.5-10.1); CARBON DIOXIDE LEVEL 32 MMOL/L (20-31); CHLORIDE LEVEL 107 MMOL/L (98-107); CREATININE FOR GFR 0.67 MG/DL (0.55-1.30); GLOMERULAR FILTRATION RATE > 60.0 (>51); GLUCOSE, FASTING 80 MG/DL (60-100); POTASSIUM SERUM 4.1 MMOL/L (3.5-5.1); SODIUM LEVEL 144 MMOL/L (136-145); TOTAL PROTEIN 6.6 G/DL (5.7-8.2)
[2022-11-22 15:49] LABS: HEPATITIS B SURFACE ANTIGEN NEGATIVE (NEGATIVE)
[2022-11-22 16:10] LABS: HEPATITIS B CORE ANTIBODY IGM NEGATIVE (NEGATIVE)
[2022-11-22 16:35] LABS: HIV 1&2 SCREEN NEGATIVE (NEGATIVE)
== END ==
LOC: M LABDRWAD 10:19
PROVIDERS: ATTEND Nurse Practitioner Family
DX: L40.0 Psoriasis vulgaris (principal)

== ENCOUNTER → 2022-11-22 | Outpatient (REF) | payer MEDICARE ==
[2022-11-22 15:04] LABS: BASO % 0.6 % (0.0-1.0); EOS # 0.2 10^3/uL (0.0-0.5); EOS % 3.2 % (0.0-3.0); HEMATOCRIT 41.7 % (36.0-47.0); HEMOGLOBIN 13.6 g/dl (12.0-15.5); LYMPH # 2.8 10^3/uL (1.5-5.0); LYMPH % 40.9 % (24.0-44.0); MEAN CORPUSCULAR HEMOGLOBIN 30.9 pg (27.0-33.0); MEAN CORPUSCULAR HGB CONC 32.6 g/dl (32.0-36.5); MEAN CORPUSCULAR VOLUME 94.8 fl (80.0-96.0); MONO # 0.7 10^3/uL (0.0-0.8); MONO % 10.8 % (2.0-8.0); NEUTROPHILS % 44.1 % (36.0-66.0); PLATELET COUNT, AUTOMATED 283 10^3/uL (150-450); WHITE BLOOD COUNT 6.9 10^3/uL (4.0-10.0)
[2022-11-22 15:36] LABS: FREE T4 0.98 NG/DL (0.89-1.76)
[2022-11-22 15:38] LABS: THYROID STIMULATING HORMONE 2.139 uIU/ML (0.55-4.78)
[2022-11-22 15:40] LABS: ALBUMIN 3.5 G/DL (3.2-5.2); ALKALINE PHOSPHATASE 48 U/L (46-116); ALT/SGPT 27 U/L (7.0-40); AST/SGOT 21 U/L (<34); BILIRUBIN,TOTAL 0.4 MG/DL (0.3-1.2); BLOOD UREA NITROGEN 15 MG/DL (9-23); CARBON DIOXIDE LEVEL 31 MMOL/L (20-31); CHLORIDE LEVEL 106 MMOL/L (98-107); CHOLESTEROL LEVEL 173 MG/DL (<200); CHOLESTEROL RISK RATIO 3.58 (<5); CREATININE FOR GFR 0.65 MG/DL (0.55-1.30); GLOMERULAR FILTRATION RATE > 60.0 (>51); GLUCOSE, FASTING 78 MG/DL (60-100); HDL CHOLESTEROL 48.3 MG/DL (>40); LDL CHOLESTEROL 87.7 MG/DL (<100); NON-HDL-C 124.7 MG/DL; POTASSIUM SERUM 3.7 MMOL/L (3.5-5.1); SODIUM LEVEL 142 MMOL/L (136-145); TOTAL PROTEIN 6.6 G/DL (5.7-8.2); TRIGLYCERIDES LEVEL 185 MG/DL (<150)
[2022-11-22 15:42] LABS: TOTAL 25(OH) VITAMIN D 42.5 NG/ML (20.0-100.0)
== END ==
LOC: M SFHCADAM 09:51
PROVIDERS: ATTEND Nurse Practitioner Family
DX: E78.2 Mixed hyperlipidemia (principal); E55.9 Vitamin D deficiency, unspecified; R79.89 Other specified abnormal findings of blood chemistry; R53.83 Other fatigue

== ENCOUNTER → 2022-12-28 | Outpatient (CLI) | payer MEDICARE | LOC: M RAD 13:04 | PROVIDERS: ATTEND Nurse Practitioner Family | DX: E04.1 Nontoxic single thyroid nodule (principal) ==

== ENCOUNTER → 2023-06-07 | Outpatient (REF) | payer MEDICARE ==
[2023-06-07 14:05] LABS: BASO % 0.3 % (0.0-1.0); EOS # 0.2 10^3/uL (0.0-0.5); EOS % 2.8 % (0.0-3.0); HEMATOCRIT 36.8 % (36.0-47.0); HEMOGLOBIN 11.6 g/dl (12.0-15.5); LYMPH # 1.7 10^3/uL (1.5-5.0); LYMPH % 29.1 % (24.0-44.0); MEAN CORPUSCULAR HEMOGLOBIN 28.4 pg (27.0-33.0); MEAN CORPUSCULAR HGB CONC 31.5 g/dl (32.0-36.5); MEAN CORPUSCULAR VOLUME 90.2 fl (80.0-96.0); MONO # 0.8 10^3/uL (0.0-0.8); MONO % 13.4 % (2.0-8.0); NEUTROPHILS # 3.1 10^3/uL (1.5-8.5); NEUTROPHILS % 54.1 % (36.0-66.0); PLATELET COUNT, AUTOMATED 337 10^3/uL (150-450); RED BLOOD COUNT 4.08 10^6/uL (4.00-5.40); WHITE BLOOD COUNT 5.8 10^3/uL (4.0-10.0)
[2023-06-07 14:26] LABS: ALBUMIN 3.4 G/DL (3.2-5.2); ALKALINE PHOSPHATASE 70 U/L (46-116); ALT/SGPT 24 U/L (7.0-40); AST/SGOT 15 U/L (<34); BILIRUBIN,TOTAL 0.5 MG/DL (0.3-1.2); BLOOD UREA NITROGEN 12 MG/DL (9-23); CALCIUM LEVEL 9.1 MG/DL (8.5-10.1); CARBON DIOXIDE LEVEL 30 MMOL/L (20-31); CHLORIDE LEVEL 107 MMOL/L (98-107); CHOLESTEROL LEVEL 148 MG/DL (<200); CHOLESTEROL RISK RATIO 3.49 (<5); CREATININE FOR GFR 0.62 MG/DL (0.55-1.30); GLOMERULAR FILTRATION RATE > 60.0 (>51); GLUCOSE, FASTING 83 MG/DL (60-100); HDL CHOLESTEROL 42.4 MG/DL (>40); LDL CHOLESTEROL 75.2 MG/DL (<100); NON-HDL-C 105.6 MG/DL; POTASSIUM SERUM 3.9 MMOL/L (3.5-5.1); SODIUM LEVEL 144 MMOL/L (136-145); TOTAL PROTEIN 6.6 G/DL (5.7-8.2); TRIGLYCERIDES LEVEL 152 MG/DL (<150)
[2023-06-07 14:31] LABS: THYROID STIMULATING HORMONE 1.198 uIU/ML (0.55-4.78)
[2023-06-07 14:32] LABS: FREE T4 0.93 NG/DL (0.89-1.76)
== END ==
LOC: M SFHCADAM 11:11
PROVIDERS: ATTEND Nurse Practitioner Family
DX: E78.2 Mixed hyperlipidemia (principal); E04.1 Nontoxic single thyroid nodule; E55.9 Vitamin D deficiency, unspecified; J30.89 Other allergic rhinitis

== ENCOUNTER → 2023-09-22 | Outpatient (CLI) | payer MEDICARE ==
[~2023-09-22] MED LIST changes: +ACET325C5 PO; +D32000CA PO; +GABA-282 PO; +LEVOTAB10 PO; +PANT40TA29 PO; +PRAV80TA2 PO; +RISA150S2 SC; +VITA-243 PO; +xyzal PO
[2023-09-22 19:22] LABS: BASO % 0.5 % (0.0-1.0); EOS # 0.1 10^3/uL (0.0-0.5); EOS % 1.8 % (0.0-3.0); HEMATOCRIT 41.6 % (36.0-47.0); HEMOGLOBIN 13.3 g/dl (12.0-15.5); LYMPH # 2.1 10^3/uL (1.5-5.0); LYMPH % 27.3 % (24.0-44.0); MEAN CORPUSCULAR HEMOGLOBIN 28.1 pg (27.0-33.0); MEAN CORPUSCULAR VOLUME 87.8 fl (80.0-96.0); MONO # 0.7 10^3/uL (0.0-0.8); MONO % 9.1 % (2.0-8.0); NEUTROPHILS # 4.7 10^3/uL (1.5-8.5); NEUTROPHILS % 60.9 % (36.0-66.0); PLATELET COUNT, AUTOMATED 311 10^3/uL (150-450); RED BLOOD COUNT 4.74 10^6/uL (4.00-5.40); WHITE BLOOD COUNT 7.7 10^3/uL (4.0-10.0)
[2023-09-22 19:51] LABS: ALBUMIN 3.5 G/DL (3.2-5.2); ALKALINE PHOSPHATASE 50 U/L (46-116); ALT/SGPT 16 U/L (7.0-40); AST/SGOT 12 U/L (<34); BILIRUBIN,DIRECT 0.1 MG/DL (<0.4); BILIRUBIN,TOTAL 0.6 MG/DL (0.3-1.2); BLOOD UREA NITROGEN 13 MG/DL (9-23); CALCIUM LEVEL 9.4 MG/DL (8.5-10.1); CARBON DIOXIDE LEVEL 30 MMOL/L (20-31); CHLORIDE LEVEL 109 MMOL/L (98-107); CREATININE FOR GFR 0.63 MG/DL (0.55-1.30); GLOMERULAR FILTRATION RATE > 60.0 (>51); GLUCOSE, FASTING 93 MG/DL (60-100); PHOSPHORUS LEVEL 3.3 MG/DL (2.5-4.9); POTASSIUM SERUM 4.3 MMOL/L (3.5-5.1); SODIUM LEVEL 142 MMOL/L (136-145); TOTAL PROTEIN 6.6 G/DL (5.7-8.2)
[2023-09-22 19:53] LABS: HEPATITIS B SURFACE ANTIBODY NEGATIVE (POSITIVE)
[2023-09-22 20:25] LABS: HEPATITIS C VIRUS ABY INDEX < 0.02 INDEX (<0.8)
[2023-09-22 21:23] LABS: HIV 1&2 SCREEN NEGATIVE (NEGATIVE)
== END ==
LOC: M PLALAB 14:34
PROVIDERS: ATTEND Nurse Practitioner Family
DX: L40.0 Psoriasis vulgaris (principal); Z79.899 Other long term (current) drug therapy; Z51.81 Encounter for therapeutic drug level monitoring; Z11.59 Encounter for screening for other viral diseases; Z72.89 Other problems related to lifestyle

== ENCOUNTER 2023-09-28 12:23 | Day surgery (SDC) | payer MEDICARE ==
[~2023-09-28] VITALS: Ht 152.4 cm; Wt 79.9 kg
[2023-09-28] MEDS: NS 1,000 ML IV ONE (12:52)
[2023-09-28] MEDS ORDERED: propofoL 200 MG/20 ML VIAL As Ordered ONE (13:14)
[2023-09-28] MEDS ORDERED: fentaNYL 100 MCG/2 ML INJECTION As Ordered ONE (13:14)
[2023-09-28] MEDS ORDERED: LIDOCAINE 2% 100MG/5ML SDV (FOR ANES.) As Ordered ONE (13:15)
[2023-09-28 14:29] VITALS: BP 127/61; TEMP 97.3; O2SAT 100
== END 2023-09-28 14:35 | disposition home or self-care (01) ==
LOC: M OPP 12:23
PROVIDERS: ATTEND Internal Medicine Gastroenterology
DX: D12.3 Benign neoplasm of transverse colon (principal); K64.8 Other hemorrhoids; K57.30 Diverticulosis of large intestine without perforation or abscess without bleeding; R19.5 Other fecal abnormalities; Z80.0 Family history of malignant neoplasm of digestive organs; R13.10 Dysphagia, unspecified; Z79.02 Long term (current) use of antithrombotics/antiplatelets; Z79.620 Long term (current) use of immunosuppressive biologic; Z79.891 Long term (current) use of opiate analgesic; Z79.899 Other long term (current) drug therapy; Z88.5 Allergy status to narcotic agent; Z88.8 Allergy status to other drugs, medicaments and biological substances
CPT/HCPCS: 43239; 45385; 88305; J3010

== ENCOUNTER → 2023-12-04 | Outpatient (REF) | payer MEDICARE ==
[2023-12-04 18:25] LABS: BASO # 0.1 10^3/uL (0.0-0.2); BASO % 0.8 % (0.0-1.0); EOS # 0.2 10^3/uL (0.0-0.5); EOS % 2.8 % (0.0-3.0); HEMATOCRIT 41.6 % (36.0-47.0); HEMOGLOBIN 13.4 g/dl (12.0-15.5); LYMPH # 2.2 10^3/uL (1.5-5.0); LYMPH % 30.1 % (24.0-44.0); MEAN CORPUSCULAR HGB CONC 32.2 g/dl (32.0-36.5); MEAN CORPUSCULAR VOLUME 93.3 fl (80.0-96.0); MONO # 0.8 10^3/uL (0.0-0.8); MONO % 10.8 % (2.0-8.0); NEUTROPHILS # 4.1 10^3/uL (1.5-8.5); NEUTROPHILS % 55.2 % (36.0-66.0); PLATELET COUNT, AUTOMATED 266 10^3/uL (150-450); RED BLOOD COUNT 4.46 10^6/uL (4.00-5.40); WHITE BLOOD COUNT 7.4 10^3/uL (4.0-10.0)
[2023-12-04 18:51] LABS: FREE T4 0.86 NG/DL (0.89-1.76); THYROID STIMULATING HORMONE 1.041 uIU/ML (0.55-4.78); TOTAL 25(OH) VITAMIN D 50.2 NG/ML (20.0-100.0)
[2023-12-04 18:53] LABS: ALBUMIN 3.5 G/DL (3.2-5.2); ALKALINE PHOSPHATASE 48 U/L (46-116); ALT/SGPT 17 U/L (7.0-40); AST/SGOT 8 U/L (<34); BILIRUBIN,TOTAL 0.6 MG/DL (0.3-1.2); BLOOD UREA NITROGEN 17 MG/DL (9-23); CALCIUM LEVEL 9.1 MG/DL (8.5-10.1); CARBON DIOXIDE LEVEL 28 MMOL/L (20-31); CHLORIDE LEVEL 108 MMOL/L (98-107); CHOLESTEROL LEVEL 183 MG/DL (<200); CHOLESTEROL RISK RATIO 3.83 (<5); CREATININE FOR GFR 0.67 MG/DL (0.55-1.30); GLOMERULAR FILTRATION RATE > 60.0 (>51); GLUCOSE, FASTING 83 MG/DL (60-100); HDL CHOLESTEROL 47.7 MG/DL (>40); LDL CHOLESTEROL 97.5 MG/DL (<100); NON-HDL-C 135.3 MG/DL; POTASSIUM SERUM 4.6 MMOL/L (3.5-5.1); SODIUM LEVEL 142 MMOL/L (136-145); TOTAL PROTEIN 6.5 G/DL (5.7-8.2); TRIGLYCERIDES LEVEL 189 MG/DL (<150)
== END ==
LOC: M SFHCADAM 13:50
PROVIDERS: ATTEND Nurse Practitioner Family
DX: E78.2 Mixed hyperlipidemia (principal); E55.9 Vitamin D deficiency, unspecified; E04.1 Nontoxic single thyroid nodule; J30.89 Other allergic rhinitis

== ENCOUNTER → 2023-12-25 | Outpatient (CLI) | payer MEDICARE | LOC: M WHC 11:32 | PROVIDERS: ATTEND Nurse Practitioner Family | DX: Z12.31 Encounter for screening mammogram for malignant neoplasm of breast (principal) ==

== ENCOUNTER → 2023-12-25 | Outpatient (CLI) | payer MEDICARE | LOC: M WHC 10:15 | PROVIDERS: ATTEND Nurse Practitioner Family | DX: Z12.31 Encounter for screening mammogram for malignant neoplasm of breast (principal); R92.323 Mammographic fibroglandular density, bilateral breasts ==

== ENCOUNTER → 2024-01-01 | Outpatient (CLI) | payer MEDICARE | LOC: M RAD 15:56 | PROVIDERS: ATTEND Nurse Practitioner Family | DX: E04.1 Nontoxic single thyroid nodule (principal) ==

== ENCOUNTER → 2024-01-18 | Outpatient (CLI) | payer MEDICARE | LOC: M WHC 12:07 | PROVIDERS: ATTEND Nurse Practitioner Family | DX: N92.0 Excessive and frequent menstruation with regular cycle (principal); N94.6 Dysmenorrhea, unspecified; D25.9 Leiomyoma of uterus, unspecified ==

== ENCOUNTER → 2024-05-22 | Outpatient (REF) | payer MEDICARE ==
[~2024-05-22] MED LIST changes: +GABA-1172 PO; -GABA-282 PO
== END ==
LOC: M SFHCWAGY 12:49
PROVIDERS: ATTEND Nurse Practitioner Family
DX: R10.2 Pelvic and perineal pain (principal)

== ENCOUNTER → 2024-05-27 | Outpatient (REF) | payer MEDICARE ==
[~2024-05-27] MED LIST changes: +OMEP-611 PO; -OMEP20TA2 PO
== END ==
LOC: M SFHCWAGY 18:03
PROVIDERS: ATTEND Nurse Practitioner Family
DX: N84.1 Polyp of cervix uteri (principal)

== ENCOUNTER → 2024-06-04 | Outpatient (REF) | payer MEDICARE ==
[~2024-06-04] MED LIST changes: -OMEP-611 PO; +OMEP20TA2 PO
[2024-06-04 18:11] LABS: BASO # 0.1 10^3/uL (0.0-0.2); BASO % 1.1 % (0.0-1.0); EOS # 0.2 10^3/uL (0.0-0.5); EOS % 3.3 % (0.0-3.0); HEMATOCRIT 45.8 % (36.0-47.0); HEMOGLOBIN 14.7 g/dl (12.0-15.5); LYMPH # 2.2 10^3/uL (1.5-5.0); LYMPH % 40.7 % (24.0-44.0); MEAN CORPUSCULAR HEMOGLOBIN 30.5 pg (27.0-33.0); MEAN CORPUSCULAR HGB CONC 32.1 g/dl (32.0-36.5); MONO # 0.7 10^3/uL (0.0-0.8); MONO % 12.2 % (2.0-8.0); NEUTROPHILS # 2.3 10^3/uL (1.5-8.5); NEUTROPHILS % 42.5 % (36.0-66.0); PLATELET COUNT, AUTOMATED 275 10^3/uL (150-450); RED BLOOD COUNT 4.82 10^6/uL (4.00-5.40); WHITE BLOOD COUNT 5.5 10^3/uL (4.0-10.0)
[2024-06-04 18:42] LABS: THYROID STIMULATING HORMONE 1.788 uIU/ML (0.55-4.78); TOTAL 25(OH) VITAMIN D 72.3 NG/ML (20.0-100.0)
[2024-06-04 18:45] LABS: ALBUMIN 3.7 G/DL (3.2-5.2); ALKALINE PHOSPHATASE 57 U/L (35-104); ALT/SGPT 45 U/L (7.0-40); AST/SGOT 22 U/L (<34); BILIRUBIN,TOTAL 0.6 MG/DL (0.3-1.2); BLOOD UREA NITROGEN 16 MG/DL (9-23); CALCIUM LEVEL 9.8 MG/DL (8.5-10.1); CARBON DIOXIDE LEVEL 32 MMOL/L (20-31); CHLORIDE LEVEL 105 MMOL/L (98-107); CHOLESTEROL LEVEL 194 MG/DL (<200); CHOLESTEROL RISK RATIO 3.55 (<5); CREATININE FOR GFR 0.74 MG/DL (0.55-1.30); FREE T4 1.02 NG/DL (0.89-1.76); GLOMERULAR FILTRATION RATE > 60.0 (>51); GLUCOSE, FASTING 88 MG/DL (60-100); HDL CHOLESTEROL 54.6 MG/DL (>40); NON-HDL-C 139.4 MG/DL; POTASSIUM SERUM 4.9 MMOL/L (3.5-5.1); SODIUM LEVEL 144 MMOL/L (136-145); TOTAL PROTEIN 6.9 G/DL (5.7-8.2); TRIGLYCERIDES LEVEL 157 MG/DL (<150)
== END ==
LOC: M SFHCADAM 10:42
PROVIDERS: ATTEND Nurse Practitioner Family
DX: E78.2 Mixed hyperlipidemia (principal); E55.9 Vitamin D deficiency, unspecified; F41.9 Anxiety disorder, unspecified; E04.1 Nontoxic single thyroid nodule

== ENCOUNTER → 2024-07-04 | Outpatient (CLI) | payer MEDICARE ==
[~2024-07-04] MED LIST changes: +OMEP-611 PO; -OMEP20TA2 PO
== END ==
LOC: M WHC 13:48
PROVIDERS: ATTEND Nurse Practitioner Family
DX: N83.202 Unspecified ovarian cyst, left side (principal)

== ENCOUNTER → 2024-07-09 | Outpatient (CLI) | payer MEDICARE ==
[2024-07-09 15:00] LABS: CARCINOEMBRYONIC ANTIGEN < 2.0 NG/ML (<2.5)
[2024-07-09 15:15] LABS: CA19-9 TUMOR MARKER,CARBOHYDRA 7.9 U/ML (<35.0)
== END ==
LOC: M PLALAB 11:48
PROVIDERS: ATTEND Nurse Practitioner Family
DX: N83.202 Unspecified ovarian cyst, left side (principal)

== ENCOUNTER → 2024-07-09 | Outpatient (CLI) | payer MEDICARE | LOC: M PLALAB 11:46 | PROVIDERS: ATTEND Obstetrics & Gynecology | DX: N83.299 Other ovarian cyst, unspecified side (principal) ==

== ENCOUNTER → 2024-08-27 | Outpatient (CLI) | payer MEDICARE ==
[2024-08-27 14:52] LABS: BASO # 0.1 10^3/uL (0.0-0.2); BASO % 0.8 % (0.0-1.0); EOS # 0.2 10^3/uL (0.0-0.5); EOS % 2.3 % (0.0-3.0); HEMATOCRIT 43.8 % (36.0-47.0); HEMOGLOBIN 14.3 g/dl (12.0-15.5); LYMPH # 2.9 10^3/uL (1.5-5.0); LYMPH % 34.1 % (24.0-44.0); MEAN CORPUSCULAR HEMOGLOBIN 30.3 pg (27.0-33.0); MEAN CORPUSCULAR HGB CONC 32.6 g/dl (32.0-36.5); MEAN CORPUSCULAR VOLUME 92.8 fl (80.0-96.0); MONO % 11.1 % (2.0-8.0); NEUTROPHILS # 4.4 10^3/uL (1.5-8.5); NEUTROPHILS % 51.4 % (36.0-66.0); PLATELET COUNT, AUTOMATED 294 10^3/uL (150-450); RED BLOOD COUNT 4.72 10^6/uL (4.00-5.40); WHITE BLOOD COUNT 8.6 10^3/uL (4.0-10.0)
[2024-08-27 15:04] LABS: ALBUMIN 3.7 G/DL (3.2-5.2); ALKALINE PHOSPHATASE 51 U/L (35-104); ALT/SGPT 22 U/L (7.0-40); AST/SGOT 14 U/L (<34); BILIRUBIN,TOTAL 0.5 MG/DL (0.3-1.2); BLOOD UREA NITROGEN 12 MG/DL (9-23); CALCIUM LEVEL 9.2 MG/DL (8.5-10.1); CARBON DIOXIDE LEVEL 30 MMOL/L (20-31); CHLORIDE LEVEL 104 MMOL/L (98-107); CREATININE FOR GFR 0.66 MG/DL (0.55-1.30); GLOMERULAR FILTRATION RATE > 60.0 (>51); GLUCOSE, FASTING 85 MG/DL (60-100); POTASSIUM SERUM 3.8 MMOL/L (3.5-5.1); SODIUM LEVEL 143 MMOL/L (136-145); TOTAL PROTEIN 7.1 G/DL (5.7-8.2)
[2024-08-27 15:17] LABS: HEPATITIS B SURFACE ANTIGEN NEGATIVE (NEGATIVE)
[2024-08-27 15:30] LABS: HIV 1&2 SCREEN NEGATIVE (NEGATIVE)
[2024-08-29 06:47] LABS: QuantiFERON-TB Gold Plus NEGATIVE (NEGATIVE)
== END ==
LOC: M LABDRWAD 09:56
PROVIDERS: ATTEND Nurse Practitioner Family
DX: L40.0 Psoriasis vulgaris (principal); Z79.899 Other long term (current) drug therapy; Z51.81 Encounter for therapeutic drug level monitoring

== ENCOUNTER → 2024-09-18 | Outpatient (CLI) | payer MEDICARE | LOC: M RAD 15:38 | PROVIDERS: ATTEND Otolaryngology | DX: E04.1 Nontoxic single thyroid nodule (principal) ==

== ENCOUNTER → 2025-01-07 | Outpatient (CLI) | payer MEDICARE ==
[~2025-01-07] MED LIST changes: -PRAV80TA2 PO; +PRAV80TA75 PO
[2025-01-07 20:51] LABS: Trichomonas vaginalis (AMP) NOT DETECTED (NEGATIVE)
[2025-01-07 21:08] LABS: HIV 1&2 SCREEN NEGATIVE (NEGATIVE)
[2025-01-07 21:15] LABS: GC DNA AMPLIFICATION NEGATIVE (NEGATIVE)
[2025-01-07 21:17] LABS: HEPATITIS C VIRUS ABY INDEX 0.09 INDEX (<0.8)
[2025-01-09 12:30] LABS: HPV APTIMA Not Detected (Not Detected)
== END ==
LOC: M PLALAB 16:19
PROVIDERS: ATTEND Nurse Practitioner Family
DX: Z11.3 Encounter for screening for infections with a predominantly sexual mode of transmission (principal); Z12.4 Encounter for screening for malignant neoplasm of cervix; Z11.59 Encounter for screening for other viral diseases; Z72.89 Other problems related to lifestyle
CPT/HCPCS: 36415; 86705; 86780; 86803; 87340; 87389; 87624; 87661; 87810; 87850; G0123

== ENCOUNTER → 2025-01-07 | Outpatient (CLI) | payer MEDICARE | LOC: M WHC 15:02 | PROVIDERS: ATTEND Nurse Practitioner Family | DX: Z12.31 Encounter for screening mammogram for malignant neoplasm of breast (principal); R92.323 Mammographic fibroglandular density, bilateral breasts ==

== ENCOUNTER → 2025-03-11 | Outpatient (CLI) | payer MEDICARE ==
[~2025-03-11] MED LIST changes: +ACET32TAB PO; +ACET500T15 PO; +CALC600C3 PO; +GARL500C6 PO; +PREM0.3T2 PO; +THERTAB52 PO; +VENL37.52 PO
[2025-03-11 15:43] LABS: ALT/SGPT 27 U/L (7.0-40); AST/SGOT 23 U/L (<34); CALCIUM LEVEL 9.5 MG/DL (8.5-10.1); CARBON DIOXIDE LEVEL 29 MMOL/L (20-31); CHLORIDE LEVEL 105 MMOL/L (98-107); CREATININE FOR GFR 0.74 MG/DL (0.55-1.30); GLOMERULAR FILTRATION RATE > 90.0 (>51); POTASSIUM SERUM 4.7 MMOL/L (3.5-5.1); SODIUM LEVEL 143 MMOL/L (136-145)
[2025-03-11 15:49] LABS: PLATELET COUNT, AUTOMATED 287 10^3/uL (150-450)
== END ==
LOC: M PLALAB 11:07
DX: Z01.818 Encounter for other preprocedural examination (principal)

== ENCOUNTER → 2025-03-11 | Outpatient (REF) | payer MEDICARE ==
[~2025-03-11] MED LIST changes: -ACET32TAB PO
== END ==
LOC: M SFHCPLAZ 10:44
PROVIDERS: ATTEND Family Medicine
DX: Z53.9 Procedure and treatment not carried out, unspecified reason (principal)

== ENCOUNTER 2025-03-18 06:42 | Observation (INO) | payer MEDICARE ==
[~2025-03-18] VITALS: Ht 152.4 cm; Wt 81.7 kg
[2025-03-18] VITALS (7 sets, daily range): BP systolic 144–165; BP diastolic 70–86; TEMP 97.3–97.8; O2SAT 92–97
[2025-03-18] MEDS: LR 1,000 ML IV SCH ×2 (07:00→15:53)
[2025-03-18] MEDS ORDERED: ROCURONIUM BROMIDE 50MG/5ML VIAL As Ordered ONE (08:17)
[2025-03-18] MEDS ORDERED: LIDOCAINE 2% 100 MG/5 ML SDV (FOR ANES.) As Ordered ONE (08:19)
[2025-03-18] MEDS ORDERED: ONDANSETRON 4MG 2ML VIAL As Ordered ONE (08:22)
[2025-03-18] MEDS ORDERED: dexAMETHasone 4 MG/ML 1 ML VIAL As Ordered ONE (08:24)
[2025-03-18] MEDS ORDERED: dexmedeTOMIDine (4 MCG/ML) 200 MCG/50 ML BTL As Ordered ONE (08:27)
[2025-03-18] MEDS ORDERED: MIDAZOLAM INJ 2 MG/2 ML VIAL As Ordered ONE (08:31)
[2025-03-18] MEDS ORDERED: HYDROmorphone HCL 2 MG/ML 1 ML VIAL As Ordered ONE (08:42)
[2025-03-18] MEDS ORDERED: SUCCINYLCHOLINE 100MG/5ML SYRINGE As Ordered ONE (09:02)
[2025-03-18] MEDS: LIDOCAINE W/EPINEPHrine 1% 20 ML VIAL As Ordered ONE (09:30)
[2025-03-18] MEDS ORDERED: ACETAMINOPHEN 1000MG/100ML IV BAG As Ordered ONE (09:41)
[2025-03-18] MEDS ORDERED: SUGAMMADEX SODIUM 500 MG/5 ML VIAL As Ordered ONE (10:19)
[2025-03-18] MEDS ORDERED: ESMOLOL 100 MG/10 ML VIAL As Ordered ONE (11:27)
[2025-03-18] MEDS ORDERED: ONDANSETRON 4MG 2ML VIAL IV PRN (11:40)
[2025-03-18] MEDS: MORPHINE 4 MG/ML 1 ML VIAL IV PRN (12:17)
[2025-03-18] MEDS ORDERED: ACETAMINOPHEN 325 MG TAB PO PRN (12:30)
[2025-03-18] MEDS ORDERED: ONDANSETRON 4MG TAB PO PRN (12:40)
[2025-03-19 00:30] VITALS: BP 126/69; TEMP 99; O2SAT 98
[2025-03-19 04:19] VITALS: BP 125/62; TEMP 97.9; O2SAT 96
[2025-03-19 06:35] LABS: PLATELET COUNT, AUTOMATED 246 10^3/uL (150-450)
[2025-03-19 06:56] LABS: ALT/SGPT 17 U/L (7.0-40); AST/SGOT 16 U/L (<34); CALCIUM LEVEL 8.4 MG/DL (8.5-10.1); CARBON DIOXIDE LEVEL 29 MMOL/L (20-31); CHLORIDE LEVEL 105 MMOL/L (98-107); CREATININE FOR GFR 0.64 MG/DL (0.55-1.30); GLOMERULAR FILTRATION RATE > 90.0 (>51); POTASSIUM SERUM 3.8 MMOL/L (3.5-5.1); SODIUM LEVEL 141 MMOL/L (136-145)
[2025-03-19] MEDS ORDERED: ACET32TAB PO (07:19)
[2025-03-19] MEDS: PANTOPRAZOLE 40MG TAB PO SCH (08:24)
[2025-03-19] MEDS: PRAVASTATIN 20 MG TAB PO SCH (08:24)
[2025-03-19 08:29] VITALS: BP 121/59; TEMP 97.9; O2SAT 95
== END 2025-03-19 11:45 | disposition home or self-care (01) ==
LOC: M SDC 06:42 → M RR INP 06:43 → M MS4PR 15:35
PROVIDERS: ADMIT Internal Medicine; ATTEND Otolaryngology
DX: C73 Malignant neoplasm of thyroid gland (principal); R00.0 Tachycardia, unspecified; F32.A Depression, unspecified; K21.9 Gastro-esophageal reflux disease without esophagitis; E78.5 Hyperlipidemia, unspecified; M54.50 Low back pain, unspecified; Z98.1 Arthrodesis status; L40.50 Arthropathic psoriasis, unspecified; J30.1 Allergic rhinitis due to pollen; J30.89 Other allergic rhinitis; Z79.899 Other long term (current) drug therapy; Z79.890 Hormone replacement therapy; Z90.89 Acquired absence of other organs; Z98.890 Other specified postprocedural states; Z88.8 Allergy status to other drugs, medicaments and biological substances
CPT/HCPCS: 36415; 60220; 80053; 81025; 85027; 88307; 96360; 96361; G0378; J0131; J0330; J1100; J1171; J1805; J2250; J2405; J3010

== ENCOUNTER → 2025-06-03 | Outpatient (REF) | payer MEDICARE ==
[~2025-06-03] MED LIST changes: +ACET32TAB PO
[2025-06-03 17:34] LABS: BASO # 0.1 10^3/uL (0.0-0.2); BASO % 0.9 % (0.0-1.0); EOS # 0.2 10^3/uL (0.0-0.5); EOS % 3.4 % (0.0-3.0); LYMPH # 2.5 10^3/uL (1.5-5.0); LYMPH % 36.6 % (24.0-44.0); MONO # 0.7 10^3/uL (0.0-0.8); MONO % 10.5 % (2.0-8.0); NEUTROPHILS # 3.3 10^3/uL (1.5-8.5); NEUTROPHILS % 48.0 % (36.0-66.0); PLATELET COUNT, AUTOMATED 364 10^3/uL (150-450)
[2025-06-03 17:40] LABS: ALT/SGPT 34 U/L (7.0-40); AST/SGOT 22 U/L (<34); CALCIUM LEVEL 9.3 MG/DL (8.5-10.1); CARBON DIOXIDE LEVEL 32 MMOL/L (20-31); CHLORIDE LEVEL 103 MMOL/L (98-107); CHOLESTEROL LEVEL 185 MG/DL (<200); CHOLESTEROL RISK RATIO 3.81 (<5); CREATININE FOR GFR 0.72 MG/DL (0.55-1.30); GLOMERULAR FILTRATION RATE > 90.0 (>51); LDL CHOLESTEROL 93.5 MG/DL (<100); NON-HDL-C 136.5 MG/DL; POTASSIUM SERUM 5.0 MMOL/L (3.5-5.1); SODIUM LEVEL 144 MMOL/L (136-145); TOTAL 25(OH) VITAMIN D 67.6 NG/ML (20.0-100.0); TRIGLYCERIDES LEVEL 215 MG/DL (<150)
[2025-06-03 17:41] LABS: FREE T4 1.00 NG/DL (0.89-1.76)
== END ==
LOC: M SFHCADAM 13:25
PROVIDERS: ATTEND Nurse Practitioner Family
DX: Z00.00 Encounter for general adult medical examination without abnormal findings (principal); E04.1 Nontoxic single thyroid nodule; E55.9 Vitamin D deficiency, unspecified; E78.2 Mixed hyperlipidemia